=== PATIENT | female | born 1975 | race African-American/Black ===

== ENCOUNTER 2016-08-30 01:53 | Emergency (ER) | payer MEDICAID ==
[~2016-08-30] VITALS: Ht 160 cm; Wt 90.0 kg
[~2016-08-30 01:53] MED LIST: DIPH25CA83 PO; QUET400T PO
[2016-08-30] MEDS ORDERED: ACETAMINOPHEN 325MG TABLET PO ONE (03:15)
[2016-08-30 03:18] LABS: BASOPHILS % 0.9 % (0.0-2.0); DIFFERENTIAL COMMENT 0; EOSINOPHILS % 4.7 % (0.0-5.0); HEMATOCRIT. 28.7 % (36.0-48.0); HEMOGLOBIN. 8.9 g/dL (12.0-16.0); LYMPHOCYTES % 52.4 % (20.0-50.0); MEAN CORPUSCULAR HEMOGLOBIN 23.9 pg (28.0-32.0); MEAN CORPUSCULAR VOLUME 77.1 fL (81.0-99.0); MONOCYTES % 9.8 % (2.0-8.0); NEUTROPHILS % 32.2 % (40.0-76.0); PLATELET 198 x1000/uL (130-400); RED BLOOD CELL COUNT 3.73 mill/uL (4.2-5.4); RED CELL DISTRIBUTION WIDTH 15.9 % (11.6-14.6); WHITE BLOOD COUNT 5.7 x1000/uL (4.5-11.0)
[2016-08-30 03:22] LABS: CLARITY URINE CLEAR (CLEAR); COLOR URINE YELLOW (YELLOW); GLUCOSE URINE NEGATIVE (NEGATIVE); KETONES URINE NEGATIVE (NEGATIVE); LEUKOCYTE ESTERASE URINE NEGATIVE (NEGATIVE); NITRITE URINE NEGATIVE (NEGATIVE); OCCULT BLOOD URINE NEGATIVE (NEGATIVE); PROTEIN URINE NEGATIVE (NEGATIVE); SPECIFIC GRAVITY URINE 1.038 (1.005-1.030)
[2016-08-30 03:30] VITALS: BP 101/53
[2016-08-30 03:32] LABS: ALANINE AMINOTRANSFERASE 17 IU/L (13-61); ANION GAP 11; CALCIUM 8.3 mg/dL (8.5-10.1); CARBON DIOXIDE 29 mEq/L (21-32); CHLORIDE 106 mEq/L (98-107); INDEX HEMOLYSI 1 (1-3); INDEX ICTERIC 1 (1-4); INDEX LIPEMIC 1 (1-3); LIPASE 169 IU/L (73-393); UREA NITROGEN BLOOD 13 mg/dL (7-21); eGFR > 60 mL/min (>60)
== END 2016-08-30 06:01 | disposition home or self-care (01) ==
LOC: ER 01:56
DX: R07.89 Other chest pain (principal); F17.210 Nicotine dependence, cigarettes, uncomplicated; Z98.890 Other specified postprocedural states; Z88.6 Allergy status to analgesic agent; Z87.19 Personal history of other diseases of the digestive system
CPT/HCPCS: 36415; 80053; 81003; 81025; 83690; 85025; 93005; 99285

== ENCOUNTER 2016-09-22 02:32 | Emergency (ER) | payer MEDICAID ==
[~2016-09-22] VITALS: Ht 160 cm; Wt 91.0 kg
[2016-09-22 02:55] VITALS: BP 137/67
== END 2016-09-22 06:01 | disposition left against medical advice (07) ==
LOC: ER 02:33
DX: R10.9 Unspecified abdominal pain (principal); Z88.6 Allergy status to analgesic agent; Z98.890 Other specified postprocedural states

== ENCOUNTER 2016-10-25 01:46 | Emergency (ER) | payer MEDICAID ==
[~2016-10-25] VITALS: Ht 160 cm; Wt 90.0 kg
[2016-10-25 01:59] VITALS: BP 135/70
== END 2016-10-25 10:12 | disposition left against medical advice (07) ==
LOC: ER 01:48
DX: R10.9 Unspecified abdominal pain (principal); Z53.21 Procedure and treatment not carried out due to patient leaving prior to being seen by health care provider

== ENCOUNTER 2016-10-30 00:24 | Emergency (ER) | payer MEDICAID ==
[~2016-10-30] VITALS: Ht 170.2 cm; Wt 91.0 kg
[2016-10-30] MEDS ORDERED: ACETAMINOPHEN 325MG TABLET PO ONE (01:45)
[2016-10-30 02:58] VITALS: BP 112/62
== END 2016-10-30 03:45 | disposition home or self-care (01) ==
LOC: ER 00:24
DX: G89.29 Other chronic pain (principal); R07.89 Other chest pain; F12.10 Cannabis abuse, uncomplicated; Z59.0 Homelessness; Z88.6 Allergy status to analgesic agent; Z87.19 Personal history of other diseases of the digestive system
CPT/HCPCS: 36415; 71010; 83690; 93005; 99285

== ENCOUNTER 2016-11-03 02:23 | Emergency (ER) | payer MEDICAID ==
[~2016-11-03] VITALS: Ht 165.1 cm; Wt 90.0 kg
[2016-11-03 02:29] VITALS: BP 124/76
== END 2016-11-03 07:50 | disposition left against medical advice (07) ==
LOC: ER 02:23
DX: R10.9 Unspecified abdominal pain (principal); Z53.21 Procedure and treatment not carried out due to patient leaving prior to being seen by health care provider

== ENCOUNTER 2017-03-15 15:55 | Emergency (ER) | payer MEDICAID ==
[~2017-03-15] VITALS: Ht 165.1 cm; Wt 60.0 kg
[2017-03-15 16:04] VITALS: BP 127/80
== END 2017-03-15 19:15 | disposition left against medical advice (07) ==
LOC: ER 15:55
DX: R10.9 Unspecified abdominal pain (principal); Z53.21 Procedure and treatment not carried out due to patient leaving prior to being seen by health care provider

== ENCOUNTER 2017-07-08 16:49 | Emergency (ER) | payer MEDICAID ==
[~2017-07-08] VITALS: Ht 167.6 cm; Wt 75.0 kg
[2017-07-08 16:52] VITALS: BP 114/92
== END 2017-07-08 20:12 | disposition left against medical advice (07) ==
LOC: ER 16:55
DX: R10.9 Unspecified abdominal pain (principal); Z53.21 Procedure and treatment not carried out due to patient leaving prior to being seen by health care provider

== ENCOUNTER 2017-08-15 18:36 | Emergency (ER) | payer MEDICAID ==
[~2017-08-15] VITALS: Ht 170.2 cm; Wt 83.0 kg
[2017-08-15] MEDS ORDERED: ONDANSETRON HCL 4MG/2ML VIAL IV STA (22:41)
[2017-08-15] MEDS ORDERED: FAMOTIDINE 20MG/2ML VIAL IV STA (22:41)
[2017-08-15] MEDS ORDERED: MORPHINE SULFATE 4 MG/ML CPJ (NOT FOR IM USE) IV STA (22:41)
[2017-08-15] MEDS ORDERED: ASPIRIN 81MG TABLET PO ONE (22:45)
[2017-08-15 23:06] LABS: BASOPHILS % 0.8 % (0.0-2.0); EOSINOPHILS % 2.6 % (0.0-5.0); HEMATOCRIT. 28.1 % (36.0-48.0); HEMOGLOBIN. 8.8 g/dL (12.0-16.0); LYMPHOCYTES % 44.7 % (20.0-50.0); MEAN CORPUSCULAR HEMOGLOBIN 21.3 pg (28.0-32.0); MEAN CORPUSCULAR VOLUME 67.9 fL (81.0-99.0); MEAN PLATELET VOLUME 8.1 fl (7.4-10.4); MONOCYTES % 9.2 % (2.0-8.0); NEUTROPHILS % 42.7 % (40.0-76.0); PLATELET 279 x1000/uL (130-400); RED BLOOD CELL COUNT 4.14 mill/uL (4.2-5.4); RED CELL DISTRIBUTION WIDTH 20.4 % (11.6-14.6)
[2017-08-15 23:13] LABS: PROTHROMBIN TIME 10.6 sec (9.4-11.6)
[2017-08-15 23:15] LABS: HCG SCREEN NEGATIVE
[2017-08-15 23:16] LABS: CHLORIDE 107 mEq/L (98-107); ETHANOL BLOOD < 10 mg/dL
[2017-08-15 23:27] LABS: PLATELET ESTIMATE NORMAL
[2017-08-16 05:10] VITALS: BP 150/55
== END 2017-08-16 05:45 | disposition home or self-care (01) ==
LOC: ER 18:36 → CANBEDREQ 08-16 06:22
DX: R10.13 Epigastric pain (principal); R07.9 Chest pain, unspecified; D50.9 Iron deficiency anemia, unspecified; R11.0 Nausea; F17.200 Nicotine dependence, unspecified, uncomplicated; F12.10 Cannabis abuse, uncomplicated; Z88.5 Allergy status to narcotic agent
CPT/HCPCS: 36415; 71045; 74176; 76705; 80053; 83690; 83880; 84484; 84703; 85025; 85610; 93005; 96374; 96375; 99285; G0482; J2270; J2405; J3490; Z7610

== ENCOUNTER 2017-12-21 20:22 | Emergency (ER) | payer MEDICAID ==
[~2017-12-21] VITALS: Ht 167.6 cm; Wt 90.0 kg
[2017-12-21] MEDS ORDERED: ONDANSETRON HCL 4MG/2ML VIAL IV STA (22:38)
[2017-12-21] MEDS ORDERED: SODIUM CHLORIDE 0.9% 1,000 ML IV ONE (22:38)
[2017-12-21] MEDS ORDERED: MORPHINE SULFATE 4 MG/ML CPJ (NOT FOR IM USE) IV ONE (22:45)
[2017-12-21] MEDS ORDERED: FAMOTIDINE 20MG/2ML VIAL IV ONE (22:45)
[2017-12-21 23:04] LABS: HEMATOCRIT. 26.7 % (36.0-48.0); HEMOGLOBIN. 8.5 g/dL (12.0-16.0); MEAN CORPUSCULAR HEMOGLOBIN 22.2 pg (28.0-32.0); MEAN CORPUSCULAR VOLUME 69.6 fL (81.0-99.0); MEAN PLATELET VOLUME 8.6 fl (7.4-10.4); PLATELET 225 x1000/uL (130-400); RED BLOOD CELL COUNT 3.83 mill/uL (4.2-5.4); RED CELL DISTRIBUTION WIDTH 22.5 % (11.6-14.6)
[2017-12-21 23:10] LABS: CHLORIDE 107 mEq/L (98-107)
[2017-12-21 23:15] LABS: PLATELET ESTIMATE NORMAL
[2017-12-21 23:16] LABS: ETHANOL BLOOD < 10 mg/dL; HCG SCREEN NEGATIVE
[2017-12-22 01:05] LABS: CLARITY URINE CLEAR (CLEAR); COLOR URINE YELLOW (YELLOW); KETONES URINE NEGATIVE (NEGATIVE); LEUKOCYTE ESTERASE URINE NEGATIVE (NEGATIVE); NITRITE URINE NEGATIVE (NEGATIVE); OCCULT BLOOD URINE 1+ (NEGATIVE); PH URINE 5.5 (4.5-8.0); PROTEIN URINE NEGATIVE (NEGATIVE); SPECIFIC GRAVITY URINE 1.015 (1.005-1.030); UROBILINOGEN URINE 0.2 E.U./dL (0.2-1.0)
[2017-12-22 01:25] LABS: *AMPHETAMINES SCREEN URINE NEGATIVE (NEGATIVE); *BARBITURATES SCREEN URINE NEGATIVE (NEGATIVE); *COCAINE SCREEN URINE NEGATIVE (NEGATIVE)
[2017-12-22 01:26] LABS: *BENZODIAZEPINES SCREEN URINE NEGATIVE (NEGATIVE); CANNABINOID URINE SCREEN NEGATIVE (NEGATIVE); METHADONE URINE SCREEN NEGATIVE (NEGATIVE); OPIATES URINE SCREEN NEGATIVE (NEGATIVE)
[2017-12-22 01:28] LABS: PHENCYCLIDINE URINE SCREEN NEGATIVE (NEGATIVE)
[2017-12-22 03:48] VITALS: BP 118/80
== END 2017-12-22 03:55 | disposition home or self-care (01) ==
LOC: ER 20:55
DX: K29.70 Gastritis, unspecified, without bleeding (principal); F17.210 Nicotine dependence, cigarettes, uncomplicated; Z88.8 Allergy status to other drugs, medicaments and biological substances; Z79.899 Other long term (current) drug therapy
CPT/HCPCS: 36415; 71045; 80053; 80305; 81003; 83690; 84703; 85025; 93005; 96361; 96374; 96375; 99285; G0482; J2405; J3490; J7030; Z7610; J2270

== ENCOUNTER 2017-12-22 05:17 | Emergency (ER) | payer MEDICAID ==
[~2017-12-22] VITALS: Ht 160 cm; Wt 91.0 kg
[2017-12-22 13:23] LABS: HEMATOCRIT. 28.2 % (36.0-48.0); MEAN CORPUSCULAR HEMOGLOBIN 22.2 pg (28.0-32.0); MEAN CORPUSCULAR VOLUME 69.7 fL (81.0-99.0); MEAN PLATELET VOLUME 8.5 fl (7.4-10.4); PLATELET 238 x1000/uL (130-400); RED BLOOD CELL COUNT 4.05 mill/uL (4.2-5.4); RED CELL DISTRIBUTION WIDTH 22.2 % (11.6-14.6)
[2017-12-22 13:28] LABS: CHLORIDE 107 mEq/L (98-107)
[2017-12-22 13:43] LABS: D-DIMER 0.99 mg/L FEU (<0.50); PROTHROMBIN TIME 10.1 sec (9.4-11.6)
[2017-12-22 13:54] LABS: PLATELET ESTIMATE NORMAL
[2017-12-22 14:47] LABS: HCG SCREEN NEGATIVE
[2017-12-22] MEDS ORDERED: IOHEXOL-350 100 ML BOTTLE ONE (16:42)
[2017-12-22 18:16] VITALS: BP 130/76
== END 2017-12-22 18:18 | disposition home or self-care (01) ==
LOC: ER 05:44
DX: R07.9 Chest pain, unspecified (principal); I26.99 Other pulmonary embolism without acute cor pulmonale; R06.00 Dyspnea, unspecified; K85.90 Acute pancreatitis without necrosis or infection, unspecified; F14.10 Cocaine abuse, uncomplicated; F17.200 Nicotine dependence, unspecified, uncomplicated; Z88.6 Allergy status to analgesic agent
CPT/HCPCS: 36415; 71045; 71275; 80053; 83880; 84484; 84703; 85025; 85379; 85610; 93005; 99285; Q9967; Z7610

== ENCOUNTER 2017-12-22 18:38 | Emergency (ER) | payer MEDICAID ==
[~2017-12-22] VITALS: Ht 160 cm; Wt 100.0 kg
[2017-12-23] MEDS ORDERED: ACETAMINOPHEN 325MG TABLET PO ONE (03:30)
[2017-12-23] MEDS: ACETAMINOPHEN 325MG TABLET PO SCH ×2 (03:41→03:58)
[2017-12-23 04:20] VITALS: BP 126/72
== END 2017-12-23 04:23 | disposition home or self-care (01) ==
LOC: ER 21:07
DX: R07.89 Other chest pain (principal); G89.29 Other chronic pain; Z88.6 Allergy status to analgesic agent
CPT/HCPCS: 99281

== ENCOUNTER 2017-12-23 04:57 | Emergency (ER) | payer MEDICAID ==
[~2017-12-23] VITALS: Ht 160 cm; Wt 90.0 kg
[2017-12-23 08:50] LABS: CHLORIDE 105 mEq/L (98-107)
[2017-12-23 08:52] LABS: PROTHROMBIN TIME 10.4 sec (9.4-11.6)
[2017-12-23 08:57] LABS: HEMATOCRIT. 28.7 % (36.0-48.0); MEAN CORPUSCULAR HEMOGLOBIN 21.8 pg (28.0-32.0); MEAN CORPUSCULAR VOLUME 69.3 fL (81.0-99.0); MEAN PLATELET VOLUME 8.7 fl (7.4-10.4); PLATELET 231 x1000/uL (130-400); RED BLOOD CELL COUNT 4.14 mill/uL (4.2-5.4); RED CELL DISTRIBUTION WIDTH 22.1 % (11.6-14.6)
[2017-12-23 09:14] LABS: CLARITY URINE CLOUDY (CLEAR); COLOR URINE YELLOW (YELLOW); KETONES URINE NEGATIVE (NEGATIVE); LEUKOCYTE ESTERASE URINE NEGATIVE (NEGATIVE); NITRITE URINE NEGATIVE (NEGATIVE); OCCULT BLOOD URINE 1+ (NEGATIVE); PROTEIN URINE NEGATIVE (NEGATIVE); SPECIFIC GRAVITY URINE 1.023 (1.005-1.030)
[2017-12-23 09:14] LABS: HCG SCREEN NEGATIVE
[2017-12-23 09:40] LABS: PLATELET ESTIMATE NORMAL
[2017-12-23 11:35] VITALS: BP 118/73
== END 2017-12-23 12:21 | disposition home or self-care (01) ==
LOC: ER 05:30
DX: R10.9 Unspecified abdominal pain (principal); F17.200 Nicotine dependence, unspecified, uncomplicated; Z97.5 Presence of (intrauterine) contraceptive device
CPT/HCPCS: 36415; 71045; 74176; 80053; 81003; 83690; 83880; 84484; 84703; 85025; 85610; 93005; 99285; Z7610

== ENCOUNTER 2018-02-14 01:17 | Emergency (ER) | payer MEDICAID ==
[~2018-02-14] VITALS: Ht 165.1 cm; Wt 73.0 kg
[2018-02-14] MEDS ORDERED: MORPHINE SULFATE 4 MG/ML CPJ (NOT FOR IM USE) IV ONE (03:15)
[2018-02-14 03:53] LABS: BASOPHILS % 0.7 % (0.0-2.0); EOSINOPHILS % 3.2 % (0.0-5.0); HEMATOCRIT. 33.4 % (36.0-48.0); HEMOGLOBIN. 10.5 g/dL (12.0-16.0); LYMPHOCYTES % 53.8 % (20.0-50.0); MEAN CORPUSCULAR HEMOGLOBIN 23.2 pg (28.0-32.0); MEAN CORPUSCULAR VOLUME 73.7 fL (81.0-99.0); MEAN PLATELET VOLUME 8.8 fl (7.4-10.4); MONOCYTES % 8.9 % (2.0-8.0); NEUTROPHILS % 33.4 % (40.0-76.0); PLATELET 225 x1000/uL (130-400); RED BLOOD CELL COUNT 4.53 mill/uL (4.2-5.4); RED CELL DISTRIBUTION WIDTH 22.1 % (11.6-14.6)
[2018-02-14 04:00] LABS: CHLORIDE 106 mEq/L (98-107)
[2018-02-14 04:02] LABS: PROTHROMBIN TIME 10.1 sec (9.1-11.1)
[2018-02-14 04:20] LABS: PLATELET ESTIMATE NORMAL
[2018-02-14] MEDS ORDERED: ONDANSETRON HCL 4MG/2ML INJ IV ONE (05:00)
[2018-02-14] MEDS ORDERED: ACETAMINOPHEN 325MG TABLET PO ONE (07:30)
[2018-02-14 11:46] VITALS: BP 120/83
== END 2018-02-14 11:49 | disposition home or self-care (01) ==
LOC: ER 01:17
DX: R07.9 Chest pain, unspecified (principal); E11.9 Type 2 diabetes mellitus without complications; I10 Essential (primary) hypertension; F17.200 Nicotine dependence, unspecified, uncomplicated; Z88.8 Allergy status to other drugs, medicaments and biological substances; Z79.899 Other long term (current) drug therapy
CPT/HCPCS: 36415; 71045; 80053; 81025; 83880; 84484; 85025; 85610; 93005; 96374; 96375; 99285; J2270; J2405; Z7610

== ENCOUNTER 2018-02-21 00:24 | Emergency (ER) | payer MEDICAID ==
[~2018-02-21] VITALS: Ht 167.6 cm; Wt 71.0 kg
[2018-02-21] MEDS ORDERED: IBUPROFEN 600MG TABLET PO STA (04:21)
[2018-02-21 05:18] LABS: BASOPHILS % 0.9 % (0.0-2.0); EOSINOPHILS % 3.1 % (0.0-5.0); HEMATOCRIT. 32.6 % (36.0-48.0); HEMOGLOBIN. 10.3 g/dL (12.0-16.0); LYMPHOCYTES % 42.2 % (20.0-50.0); MEAN CORPUSCULAR HEMOGLOBIN 23.3 pg (28.0-32.0); MEAN CORPUSCULAR VOLUME 73.6 fL (81.0-99.0); MEAN PLATELET VOLUME 8.5 fl (7.4-10.4); NEUTROPHILS % 45.8 % (40.0-76.0); PLATELET 204 x1000/uL (130-400); RED BLOOD CELL COUNT 4.43 mill/uL (4.2-5.4); RED CELL DISTRIBUTION WIDTH 22.1 % (11.6-14.6)
[2018-02-21 05:22] LABS: PLATELET ESTIMATE NORMAL
[2018-02-21 05:26] LABS: CHLORIDE 106 mEq/L (98-107)
[2018-02-21] MEDS ORDERED: ACETAMINOPHEN 325MG TABLET PO ONE (06:30)
[2018-02-21 08:25] VITALS: BP 114/66
== END 2018-02-21 08:29 | disposition home or self-care (01) ==
LOC: ER 00:33
DX: R07.9 Chest pain, unspecified (principal); F17.210 Nicotine dependence, cigarettes, uncomplicated; E11.9 Type 2 diabetes mellitus without complications; I10 Essential (primary) hypertension; I25.10 Atherosclerotic heart disease of native coronary artery without angina pectoris; F31.9 Bipolar disorder, unspecified; Z98.890 Other specified postprocedural states; Z88.5 Allergy status to narcotic agent; Z79.899 Other long term (current) drug therapy
CPT/HCPCS: 36415; 71045; 80053; 81025; 84484; 85025; 93005; 99285; Z7610

== ENCOUNTER 2018-05-16 18:31 | Emergency (ER) | payer MEDICAID ==
[~2018-05-16] VITALS: Ht 167.6 cm; Wt 62.0 kg
[2018-05-16] MEDS ORDERED: FAMOTIDINE 20MG/2ML VIAL IV STA (19:39)
[2018-05-16] MEDS ORDERED: KETOROLAC 30MG/ML VIAL IV STA (19:39)
[2018-05-16] MEDS ORDERED: ONDANSETRON HCL 4MG/2ML INJ IV STA (19:39)
[2018-05-16 21:35] LABS: BASOPHILS % 0.4 % (0.0-2.0); CHLORIDE 103 mEq/L (98-107); EOSINOPHILS % 1.8 % (0.0-5.0); HEMOGLOBIN. 11.7 g/dL (12.0-16.0); LYMPHOCYTES % 34.9 % (20.0-50.0); MEAN CORPUSCULAR HEMOGLOBIN 24.1 pg (28.0-32.0); MEAN CORPUSCULAR VOLUME 76.4 fL (81.0-99.0); MEAN PLATELET VOLUME 8.5 fl (7.4-10.4); MONOCYTES % 12.6 % (2.0-8.0); NEUTROPHILS % 50.3 % (40.0-76.0); PLATELET 192 x1000/uL (130-400); RED BLOOD CELL COUNT 4.84 mill/uL (4.2-5.4); RED CELL DISTRIBUTION WIDTH 19.3 % (11.6-14.6)
[2018-05-16 21:54] LABS: CLARITY URINE CLOUDY (CLEAR); COLOR URINE YELLOW (YELLOW); KETONES URINE TRACE (NEGATIVE); LEUKOCYTE ESTERASE URINE 1+ (NEGATIVE); NITRITE URINE NEGATIVE (NEGATIVE); OCCULT BLOOD URINE NEGATIVE (NEGATIVE); PROTEIN URINE TRACE (NEGATIVE); SPECIFIC GRAVITY URINE 1.036 (1.005-1.030)
[2018-05-17 00:26] VITALS: BP 109/58
== END 2018-05-17 01:04 | disposition home or self-care (01) ==
LOC: ER 18:31
DX: R10.9 Unspecified abdominal pain (principal); R07.9 Chest pain, unspecified; F10.20 Alcohol dependence, uncomplicated; F31.9 Bipolar disorder, unspecified; I10 Essential (primary) hypertension; E11.9 Type 2 diabetes mellitus without complications; I25.10 Atherosclerotic heart disease of native coronary artery without angina pectoris; Z88.5 Allergy status to narcotic agent
CPT/HCPCS: 36415; 71045; 80053; 81003; 81025; 83690; 84484; 85025; 93005; 96374; 96375; 99284; J1885; J2405; J3490

== ENCOUNTER 2018-05-17 06:48 | Emergency (ER) | payer MEDICAID ==
[~2018-05-17] VITALS: Ht 160 cm; Wt 64.0 kg
[2018-05-17] MEDS ORDERED: FAMOTIDINE 20MG/2ML VIAL IV STA (07:26)
[2018-05-17] MEDS ORDERED: VISCOUS LIDOCAINE 2% 15 ML UDC PO STA (07:26)
[2018-05-17] MEDS ORDERED: MAGNESIUM/ALUMINUM HYDROXIDE/SIMETHICONE 30ML UDC PO STA (07:26)
[2018-05-17] MEDS ORDERED: ONDANSETRON HCL 4MG/2ML INJ IV STA (07:26)
[2018-05-17 08:33] LABS: CHLORIDE 104 mEq/L (98-107)
[2018-05-17 08:36] LABS: PROTHROMBIN TIME 10.4 sec (9.1-11.1)
[2018-05-17 08:44] LABS: BASOPHILS % 0.5 % (0.0-2.0); EOSINOPHILS % 1.8 % (0.0-5.0); HEMATOCRIT. 36.3 % (36.0-48.0); HEMOGLOBIN. 11.6 g/dL (12.0-16.0); LYMPHOCYTES % 37.8 % (20.0-50.0); MEAN CORPUSCULAR HEMOGLOBIN 24.3 pg (28.0-32.0); MEAN CORPUSCULAR VOLUME 76.2 fL (81.0-99.0); MEAN PLATELET VOLUME 8.5 fl (7.4-10.4); MONOCYTES % 12.2 % (2.0-8.0); NEUTROPHILS % 47.7 % (40.0-76.0); PLATELET 192 x1000/uL (130-400); RED BLOOD CELL COUNT 4.77 mill/uL (4.2-5.4); RED CELL DISTRIBUTION WIDTH 19.1 % (11.6-14.6)
[2018-05-17 09:11] LABS: CLARITY URINE CLOUDY (CLEAR); COLOR URINE AMBER (YELLOW); KETONES URINE TRACE (NEGATIVE); LEUKOCYTE ESTERASE URINE 2+ (NEGATIVE); NITRITE URINE NEGATIVE (NEGATIVE); OCCULT BLOOD URINE NEGATIVE (NEGATIVE); PH URINE 5.5 (4.5-8.0); PROTEIN URINE TRACE (NEGATIVE); UROBILINOGEN URINE 0.2 E.U./dL (0.2-1.0)
[2018-05-17 10:27] VITALS: BP 135/75
== END 2018-05-17 10:53 | disposition home or self-care (01) ==
LOC: ER 07:48
DX: N39.0 Urinary tract infection, site not specified (principal); F31.9 Bipolar disorder, unspecified; I10 Essential (primary) hypertension; F17.200 Nicotine dependence, unspecified, uncomplicated; Z88.5 Allergy status to narcotic agent
CPT/HCPCS: 36415; 80053; 81003; 81025; 83690; 83880; 84484; 85025; 85610; 87086; 93005; 96374; 96375; 99284; J2405; J3490

== ENCOUNTER 2018-08-18 02:55 | Emergency (ER) | payer MEDICAID ==
[~2018-08-18] VITALS: Ht 160 cm; Wt 91.0 kg
[2018-08-18 05:39] LABS: BASOPHILS % 0.9 % (0.0-2.0); EOSINOPHILS % 4.9 % (0.0-5.0); HEMATOCRIT. 31.4 % (36.0-48.0); LYMPHOCYTES % 61.5 % (20.0-50.0); MEAN CORPUSCULAR HEMOGLOBIN 25.9 pg (28.0-32.0); MEAN CORPUSCULAR VOLUME 81.2 fL (81.0-99.0); MEAN PLATELET VOLUME 8.2 fl (7.4-10.4); MONOCYTES % 9.5 % (2.0-8.0); NEUTROPHILS % 23.2 % (40.0-76.0); PLATELET 178 x1000/uL (130-400); RED BLOOD CELL COUNT 3.87 mill/uL (4.2-5.4); RED CELL DISTRIBUTION WIDTH 15.4 % (11.6-14.6)
[2018-08-18 05:45] LABS: CHLORIDE 112 mEq/L (98-107)
[2018-08-18 05:53] LABS: ETHANOL BLOOD < 10 mg/dL; HCG SCREEN NEGATIVE
[2018-08-18 06:14] LABS: *AMPHETAMINES SCREEN URINE NEGATIVE (NEGATIVE); *BARBITURATES SCREEN URINE NEGATIVE (NEGATIVE)
[2018-08-18 06:15] LABS: *BENZODIAZEPINES SCREEN URINE NEGATIVE (NEGATIVE); CANNABINOID URINE SCREEN NEGATIVE (NEGATIVE); METHADONE URINE SCREEN NEGATIVE (NEGATIVE); OPIATES URINE SCREEN NEGATIVE (NEGATIVE); PHENCYCLIDINE URINE SCREEN NEGATIVE (NEGATIVE)
[2018-08-18 06:29] LABS: *COCAINE SCREEN URINE PRESUMTIVE POSITIVE (NEGATIVE)
[2018-08-18] MEDS ORDERED: KETOROLAC 60MG/2ML VIAL IM STA (07:06)
[2018-08-18 09:25] VITALS: BP 117/71
== END 2018-08-18 09:41 | disposition home or self-care (01) ==
LOC: ER 02:55
DX: M94.0 Chondrocostal junction syndrome [Tietze] (principal); R07.9 Chest pain, unspecified; F14.10 Cocaine abuse, uncomplicated; Z88.5 Allergy status to narcotic agent
CPT/HCPCS: 36415; 71045; 80053; 80305; 80320; 83880; 84484; 84703; 85025; 96372; 99284; J1885; G0480

== ENCOUNTER 2018-09-30 07:51 | Emergency (ER) | payer MEDICAID ==
[~2018-09-30] VITALS: Ht 165.1 cm; Wt 86.6 kg
[2018-09-30 09:31] LABS: CLARITY URINE CLEAR (CLEAR); COLOR URINE YELLOW (YELLOW); KETONES URINE TRACE (NEGATIVE); LEUKOCYTE ESTERASE URINE NEGATIVE (NEGATIVE); NITRITE URINE NEGATIVE (NEGATIVE); OCCULT BLOOD URINE NEGATIVE (NEGATIVE); PH URINE 5.5 (4.5-8.0); PROTEIN URINE NEGATIVE (NEGATIVE); SPECIFIC GRAVITY URINE 1.039 (1.005-1.030)
[2018-09-30] MEDS ORDERED: ACETAMINOPHEN 325MG TABLET PO STA (10:01)
[2018-09-30] MEDS ORDERED: ONDANSETRON HCL 4MG/2ML INJ IV STA (10:01)
[2018-09-30] MEDS ORDERED: SODIUM CHLORIDE 0.9% 1,000 ML IV ONE (10:01)
[2018-09-30 11:08] LABS: *AMPHETAMINES SCREEN URINE NEGATIVE (NEGATIVE); *BARBITURATES SCREEN URINE NEGATIVE (NEGATIVE); *BENZODIAZEPINES SCREEN URINE NEGATIVE (NEGATIVE)
[2018-09-30 11:09] LABS: CANNABINOID URINE SCREEN NEGATIVE (NEGATIVE); METHADONE URINE SCREEN NEGATIVE (NEGATIVE); OPIATES URINE SCREEN NEGATIVE (NEGATIVE); PHENCYCLIDINE URINE SCREEN NEGATIVE (NEGATIVE)
[2018-09-30 11:14] LABS: *COCAINE SCREEN URINE PRESUMTIVE POSITIVE (NEGATIVE)
[2018-09-30 11:40] LABS: BASOPHILS % 0.6 % (0.0-2.0); EOSINOPHILS % 4.6 % (0.0-5.0); HEMATOCRIT. 34.6 % (36.0-48.0); HEMOGLOBIN. 11.1 g/dL (12.0-16.0); LYMPHOCYTES % 47.8 % (20.0-50.0); MEAN CORPUSCULAR VOLUME 81.2 fL (81.0-99.0); MEAN PLATELET VOLUME 8.3 fl (7.4-10.4); MONOCYTES % 11.3 % (2.0-8.0); NEUTROPHILS % 35.7 % (40.0-76.0); PLATELET 180 x1000/uL (130-400); RED BLOOD CELL COUNT 4.26 mill/uL (4.2-5.4); RED CELL DISTRIBUTION WIDTH 14.9 % (11.6-14.6)
[2018-09-30 11:48] LABS: CHLORIDE 111 mEq/L (98-107)
[2018-09-30 11:55] LABS: ETHANOL BLOOD < 10 mg/dL
[2018-09-30] MEDS ORDERED: ACETAMINOPHEN 325MG TABLET ONE (12:09)
[2018-09-30 14:01] VITALS: BP 121/70
== END 2018-09-30 14:19 | disposition home or self-care (01) ==
LOC: ER 07:51
DX: M94.0 Chondrocostal junction syndrome [Tietze] (principal); F14.10 Cocaine abuse, uncomplicated; R10.30 Lower abdominal pain, unspecified; Z98.890 Other specified postprocedural states
CPT/HCPCS: 36415; 80053; 80305; 80320; 81003; 83690; 84484; 85025; 93005; 96361; 96374; 99284; J2405; J7030; G0480

== ENCOUNTER 2018-10-12 23:07 | Emergency (ER) | payer MEDICAID ==
[~2018-10-12] VITALS: Ht 160 cm; Wt 91.0 kg
[2018-10-12 23:23] VITALS: BP 144/102
== END 2018-10-13 01:45 | disposition left against medical advice (07) ==
LOC: ER 23:07
DX: R07.9 Chest pain, unspecified (principal); F14.10 Cocaine abuse, uncomplicated; F17.200 Nicotine dependence, unspecified, uncomplicated; Z98.890 Other specified postprocedural states; Z88.5 Allergy status to narcotic agent; Z79.899 Other long term (current) drug therapy
CPT/HCPCS: 93005; 99281

== ENCOUNTER 2018-10-19 22:10 | Emergency (ER) | payer MEDICAID ==
[~2018-10-19] VITALS: Ht 160 cm; Wt 95.0 kg
[2018-10-20] MEDS ORDERED: ONDANSETRON HCL 4MG/2ML INJ IV STA (02:43)
[2018-10-20] MEDS ORDERED: SODIUM CHLORIDE 0.9% 1,000 ML IV ONE (02:43)
[2018-10-20] MEDS ORDERED: KETOROLAC 15MG/ML VIAL IV ONE (02:45)
[2018-10-20 03:10] LABS: CHLORIDE 107 mEq/L (98-107)
[2018-10-20 03:11] LABS: BASOPHILS % 0.5 % (0.0-2.0); EOSINOPHILS % 4.8 % (0.0-5.0); HEMATOCRIT. 36.2 % (36.0-48.0); HEMOGLOBIN. 11.4 g/dL (12.0-16.0); LYMPHOCYTES % 43.7 % (20.0-50.0); MEAN CORPUSCULAR HEMOGLOBIN 25.1 pg (28.0-32.0); MEAN CORPUSCULAR VOLUME 79.5 fL (81.0-99.0); MEAN PLATELET VOLUME 8.5 fl (7.4-10.4); MONOCYTES % 9.3 % (2.0-8.0); NEUTROPHILS % 41.7 % (40.0-76.0); PLATELET 221 x1000/uL (130-400); RED BLOOD CELL COUNT 4.55 mill/uL (4.2-5.4); RED CELL DISTRIBUTION WIDTH 15.1 % (11.6-14.6)
[2018-10-20 03:12] LABS: PROTHROMBIN TIME 10.1 sec (9.6-11.0)
[2018-10-20 03:21] LABS: HCG SCREEN NEGATIVE
[2018-10-20 03:35] LABS: CLARITY URINE CLEAR (CLEAR); COLOR URINE YELLOW (YELLOW); KETONES URINE TRACE (NEGATIVE); LEUKOCYTE ESTERASE URINE TRACE (NEGATIVE); NITRITE URINE NEGATIVE (NEGATIVE); OCCULT BLOOD URINE 2+ (NEGATIVE); PROTEIN URINE TRACE (NEGATIVE); SPECIFIC GRAVITY URINE 1.039 (1.005-1.030)
[2018-10-20] MEDS ORDERED: FAMOTIDINE 20MG TABLET PO NR (05:15)
[2018-10-20] MEDS ORDERED: POTASSIUM CHLORIDE 20MEQ TABLET SR PO NR (05:15)
[2018-10-20 06:32] VITALS: BP 122/77
== END 2018-10-20 06:38 | disposition home or self-care (01) ==
LOC: ER 22:10
DX: N39.0 Urinary tract infection, site not specified (principal); F10.10 Alcohol abuse, uncomplicated; R10.13 Epigastric pain; I10 Essential (primary) hypertension; F17.200 Nicotine dependence, unspecified, uncomplicated; F14.10 Cocaine abuse, uncomplicated; Z88.5 Allergy status to narcotic agent; Z79.899 Other long term (current) drug therapy
CPT/HCPCS: 36415; 74176; 80053; 81003; 81025; 83690; 84703; 85025; 85610; 96374; 96375; 99284; J1885; J2405; J7030; Z7610

== ENCOUNTER 2018-10-23 21:48 | Emergency (ER) | payer MEDICAID ==
[~2018-10-23] VITALS: Ht 170.2 cm; Wt 92.0 kg
[2018-10-24] MEDS: ASPIRIN 81MG TABLET PO ONE (02:00)
[2018-10-24 04:45] LABS: BASOPHILS % 0.7 % (0.0-2.0); EOSINOPHILS % 5.4 % (0.0-5.0); HEMATOCRIT. 33.3 % (36.0-48.0); HEMOGLOBIN. 10.8 g/dL (12.0-16.0); LYMPHOCYTES % 50.6 % (20.0-50.0); MEAN CORPUSCULAR HEMOGLOBIN 26.1 pg (28.0-32.0); MEAN CORPUSCULAR VOLUME 80.4 fL (81.0-99.0); MEAN PLATELET VOLUME 8.7 fl (7.4-10.4); MONOCYTES % 7.4 % (2.0-8.0); NEUTROPHILS % 35.9 % (40.0-76.0); RED BLOOD CELL COUNT 4.14 mill/uL (4.2-5.4); RED CELL DISTRIBUTION WIDTH 14.8 % (11.6-14.6)
[2018-10-24 04:46] LABS: PLATELET 166 x1000/uL (130-400)
[2018-10-24 05:05] LABS: CHLORIDE 107 mEq/L (98-107)
[2018-10-24 06:58] VITALS: BP 133/79
== END 2018-10-24 07:00 | disposition home or self-care (01) ==
LOC: ER 21:48
DX: G89.29 Other chronic pain (principal); R07.89 Other chest pain; R06.02 Shortness of breath; F31.9 Bipolar disorder, unspecified; I10 Essential (primary) hypertension; F17.200 Nicotine dependence, unspecified, uncomplicated; Z88.5 Allergy status to narcotic agent; Z79.899 Other long term (current) drug therapy
CPT/HCPCS: 36415; 71045; 80053; 83880; 84484; 85025; 93005; 99284; Z7610

== ENCOUNTER 2018-10-25 01:45 | Emergency (ER) | payer MEDICAID ==
[~2018-10-25] VITALS: Ht 160 cm; Wt 91.0 kg
[2018-10-25] MEDS ORDERED: ACETAMINOPHEN 325MG TABLET PO ONE (04:30)
[2018-10-25 04:38] LABS: BASOPHILS % 1.2 % (0.0-2.0); HEMATOCRIT. 31.4 % (36.0-48.0); HEMOGLOBIN. 10.3 g/dL (12.0-16.0); LYMPHOCYTES % 55.1 % (20.0-50.0); MEAN CORPUSCULAR HEMOGLOBIN 25.9 pg (28.0-32.0); MEAN CORPUSCULAR VOLUME 79.4 fL (81.0-99.0); MEAN PLATELET VOLUME 8.3 fl (7.4-10.4); MONOCYTES % 9.7 % (2.0-8.0); PLATELET 203 x1000/uL (130-400); RED BLOOD CELL COUNT 3.96 mill/uL (4.2-5.4); RED CELL DISTRIBUTION WIDTH 14.8 % (11.6-14.6)
[2018-10-25 04:46] LABS: CHLORIDE 107 mEq/L (98-107)
[2018-10-25] MEDS ORDERED: POTASSIUM CHLORIDE 20MEQ/PACKET PO ONE (06:00)
[2018-10-25 06:32] VITALS: BP 120/64
== END 2018-10-25 06:43 | disposition home or self-care (01) ==
LOC: ER 03:22
DX: G89.29 Other chronic pain (principal); R07.89 Other chest pain; R10.9 Unspecified abdominal pain; F17.200 Nicotine dependence, unspecified, uncomplicated; F14.10 Cocaine abuse, uncomplicated; Z98.890 Other specified postprocedural states; Z88.5 Allergy status to narcotic agent; Z79.899 Other long term (current) drug therapy
CPT/HCPCS: 36415; 93005; 99284

== ENCOUNTER 2018-11-06 22:44 | Emergency (ER) | payer MEDICAID ==
[~2018-11-06] VITALS: Ht 157.5 cm; Wt 91.0 kg
[2018-11-07] MEDS ORDERED: MAGNESIUM/ALUMINUM HYDROXIDE/SIMETHICONE 30ML UDC PO STA (02:03)
[2018-11-07 03:09] LABS: BASOPHILS % 0.9 % (0.0-2.0); CHLORIDE 110 mEq/L (98-107); EOSINOPHILS % 5.1 % (0.0-5.0); HEMATOCRIT. 34.9 % (36.0-48.0); HEMOGLOBIN. 11.3 g/dL (12.0-16.0); MEAN CORPUSCULAR HEMOGLOBIN 25.4 pg (28.0-32.0); MEAN CORPUSCULAR VOLUME 78.7 fL (81.0-99.0); MEAN PLATELET VOLUME 8.5 fl (7.4-10.4); MONOCYTES % 8.3 % (2.0-8.0); NEUTROPHILS % 40.7 % (40.0-76.0); PLATELET 203 x1000/uL (130-400); RED BLOOD CELL COUNT 4.43 mill/uL (4.2-5.4); RED CELL DISTRIBUTION WIDTH 15.4 % (11.6-14.6)
[2018-11-07 03:13] LABS: HCG SCREEN NEGATIVE
[2018-11-07 05:05] VITALS: BP 101/55
[2018-11-07] MEDS ORDERED: ONDANSETRON 4MG ODT PO ONE (05:30)
== END 2018-11-07 05:36 | disposition home or self-care (01) ==
LOC: ER 22:44
DX: R10.33 Periumbilical pain (principal); R11.2 Nausea with vomiting, unspecified; Z87.19 Personal history of other diseases of the digestive system; Z98.890 Other specified postprocedural states; Z88.5 Allergy status to narcotic agent; Z79.899 Other long term (current) drug therapy
CPT/HCPCS: 36415; 71045; 80053; 81025; 83690; 84484; 84703; 85025; 93005; 99284; Q0162

== ENCOUNTER 2018-11-07 15:11 | Emergency (ER) | payer MEDICAID ==
[~2018-11-07] VITALS: Ht 170.2 cm; Wt 100.0 kg
[2018-11-07 15:14] VITALS: BP 122/84
== END 2018-11-07 18:22 | disposition left against medical advice (07) ==
LOC: ER 15:11
DX: R10.13 Epigastric pain (principal); F14.10 Cocaine abuse, uncomplicated; R11.2 Nausea with vomiting, unspecified; Z98.890 Other specified postprocedural states; Z87.19 Personal history of other diseases of the digestive system; Z88.5 Allergy status to narcotic agent
CPT/HCPCS: 99283

== ENCOUNTER 2018-11-10 16:58 | Emergency (ER) | payer MEDICAID ==
[~2018-11-10] VITALS: Ht 160 cm; Wt 96.0 kg
[2018-11-10 17:01] VITALS: BP 102/67
== END 2018-11-10 17:45 | disposition left against medical advice (07) ==
LOC: ER 17:00
DX: R07.89 Other chest pain (principal); R10.84 Generalized abdominal pain; F14.10 Cocaine abuse, uncomplicated; Z88.5 Allergy status to narcotic agent; Z98.890 Other specified postprocedural states; Z87.19 Personal history of other diseases of the digestive system
CPT/HCPCS: 99283

== ENCOUNTER 2018-11-11 00:27 | Emergency (ER) | payer MEDICAID ==
[~2018-11-11] VITALS: Ht 160 cm; Wt 91.0 kg
[2018-11-11] MEDS ORDERED: MAGNESIUM/ALUMINUM HYDROXIDE/SIMETHICONE 30ML UDC PO STA (02:03)
[2018-11-11] MEDS ORDERED: VISCOUS LIDOCAINE 2% 15 ML UDC PO STA (02:03)
[2018-11-11 03:01] LABS: BASOPHILS % 1.2 % (0.0-2.0); EOSINOPHILS % 5.9 % (0.0-5.0); HEMOGLOBIN. 11.4 g/dL (12.0-16.0); LYMPHOCYTES % 48.5 % (20.0-50.0); MEAN CORPUSCULAR HEMOGLOBIN 25.7 pg (28.0-32.0); MEAN CORPUSCULAR VOLUME 78.7 fL (81.0-99.0); MEAN PLATELET VOLUME 8.2 fl (7.4-10.4); MONOCYTES % 10.1 % (2.0-8.0); NEUTROPHILS % 34.3 % (40.0-76.0); PLATELET 192 x1000/uL (130-400); RED BLOOD CELL COUNT 4.45 mill/uL (4.2-5.4); RED CELL DISTRIBUTION WIDTH 15.4 % (11.6-14.6)
[2018-11-11 03:05] LABS: CHLORIDE 107 mEq/L (98-107)
[2018-11-11 03:38] LABS: CLARITY URINE CLOUDY (CLEAR); COLOR URINE DARK YELLOW (YELLOW); KETONES URINE NEGATIVE (NEGATIVE); LEUKOCYTE ESTERASE URINE 1+ (NEGATIVE); NITRITE URINE NEGATIVE (NEGATIVE); OCCULT BLOOD URINE NEGATIVE (NEGATIVE); PH URINE 6.5 (4.5-8.0); PROTEIN URINE 1+ (NEGATIVE); SPECIFIC GRAVITY URINE 1.041 (1.005-1.030)
[2018-11-11 05:23] VITALS: BP 121/69
== END 2018-11-11 05:27 | disposition home or self-care (01) ==
LOC: ER 00:27
DX: N39.0 Urinary tract infection, site not specified (principal); F14.10 Cocaine abuse, uncomplicated; F17.210 Nicotine dependence, cigarettes, uncomplicated; Z98.890 Other specified postprocedural states; Z88.5 Allergy status to narcotic agent; Z79.899 Other long term (current) drug therapy; Z87.19 Personal history of other diseases of the digestive system
CPT/HCPCS: 36415; 80053; 81003; 83690; 84484; 85025; 93005; 99284; 99406; Z7610

== ENCOUNTER 2018-11-22 15:02 | Emergency (ER) | payer MEDICAID ==
[~2018-11-22] VITALS: Ht 157.5 cm; Wt 90.0 kg
[2018-11-22] MEDS ORDERED: SODIUM CHLORIDE 0.9% 1,000 ML IV ONE (15:19)
[2018-11-22 16:03] LABS: CLARITY URINE CLEAR (CLEAR); COLOR URINE YELLOW (YELLOW); KETONES URINE TRACE (NEGATIVE); LEUKOCYTE ESTERASE URINE NEGATIVE (NEGATIVE); NITRITE URINE NEGATIVE (NEGATIVE); OCCULT BLOOD URINE NEGATIVE (NEGATIVE); PH URINE 5.5 (4.5-8.0); PROTEIN URINE NEGATIVE (NEGATIVE); SPECIFIC GRAVITY URINE 1.027 (1.005-1.030)
[2018-11-22 16:22] LABS: *AMPHETAMINES SCREEN URINE NEGATIVE (NEGATIVE); *BARBITURATES SCREEN URINE NEGATIVE (NEGATIVE); *BENZODIAZEPINES SCREEN URINE NEGATIVE (NEGATIVE); METHADONE URINE SCREEN NEGATIVE (NEGATIVE); OPIATES URINE SCREEN NEGATIVE (NEGATIVE)
[2018-11-22 16:23] LABS: CANNABINOID URINE SCREEN NEGATIVE (NEGATIVE); PHENCYCLIDINE URINE SCREEN NEGATIVE (NEGATIVE)
[2018-11-22 16:24] LABS: *COCAINE SCREEN URINE PRESUMTIVE POSITIVE (NEGATIVE)
[2018-11-22 16:30] LABS: BASOPHILS % 0.8 % (0.0-2.0); HEMATOCRIT. 34.8 % (36.0-48.0); HEMOGLOBIN. 11.4 g/dL (12.0-16.0); LYMPHOCYTES % 45.3 % (20.0-50.0); MEAN CORPUSCULAR HEMOGLOBIN 25.8 pg (28.0-32.0); MEAN CORPUSCULAR VOLUME 78.7 fL (81.0-99.0); MEAN PLATELET VOLUME 8.4 fl (7.4-10.4); MONOCYTES % 7.9 % (2.0-8.0); PLATELET 176 x1000/uL (130-400); RED BLOOD CELL COUNT 4.43 mill/uL (4.2-5.4)
[2018-11-22 16:33] LABS: CHLORIDE 108 mEq/L (98-107)
[2018-11-22 16:37] LABS: ETHANOL BLOOD < 10 mg/dL
[2018-11-22 16:40] LABS: HCG SCREEN NEGATIVE
[2018-11-22 16:42] LABS: CREATINE KINASE 68 IU/L (26-192)
[2018-11-22 17:10] VITALS: BP 114/80
== END 2018-11-22 17:12 | disposition home or self-care (01) ==
LOC: ER 15:02
DX: F14.129 Cocaine abuse with intoxication, unspecified (principal); G89.29 Other chronic pain; I10 Essential (primary) hypertension; F17.200 Nicotine dependence, unspecified, uncomplicated; Z98.890 Other specified postprocedural states; Z88.5 Allergy status to narcotic agent
CPT/HCPCS: 36415; 80048; 80305; 80307; 80320; 80329; 81003; 81025; 82550; 84703; 85025; 99283; J7030; G0480

== ENCOUNTER 2018-12-09 21:56 | Inpatient (IN) | payer MEDICAID ==
[~2018-12-09] VITALS: Ht 160 cm; Wt 90.7 kg
[2018-12-09] MEDS ORDERED: ONDANSETRON HCL 4MG/2ML INJ IV STA (23:52)
[2018-12-09] MEDS ORDERED: MORPHINE SULFATE 4 MG/ML CPJ (NOT FOR IM USE) IV STA (23:52)
[2018-12-09] MEDS ORDERED: SODIUM CHLORIDE 0.9% 1,000 ML IV ONE (23:52)
[2018-12-10 01:03] LABS: BASOPHILS % 0.9 % (0.0-2.0); EOSINOPHILS % 5.6 % (0.0-5.0); HEMOGLOBIN. 10.5 g/dL (12.0-16.0); LYMPHOCYTES % 50.1 % (20.0-50.0); MEAN CORPUSCULAR HEMOGLOBIN 25.1 pg (28.0-32.0); MEAN CORPUSCULAR VOLUME 78.7 fL (81.0-99.0); MEAN PLATELET VOLUME 8.4 fl (7.4-10.4); MONOCYTES % 6.9 % (2.0-8.0); NEUTROPHILS % 36.5 % (40.0-76.0); PLATELET 180 x1000/uL (130-400); RED BLOOD CELL COUNT 4.19 mill/uL (4.2-5.4); RED CELL DISTRIBUTION WIDTH 16.4 % (11.6-14.6)
[2018-12-10 01:10] LABS: CHLORIDE 110 mEq/L (98-107)
[2018-12-10 01:13] LABS: HCG SCREEN NEGATIVE
[2018-12-10 01:18] LABS: CLARITY URINE CLEAR (CLEAR); COLOR URINE YELLOW (YELLOW); KETONES URINE NEGATIVE (NEGATIVE); LEUKOCYTE ESTERASE URINE 1+ (NEGATIVE); NITRITE URINE NEGATIVE (NEGATIVE); OCCULT BLOOD URINE NEGATIVE (NEGATIVE); PROTEIN URINE NEGATIVE (NEGATIVE); SPECIFIC GRAVITY URINE 1.024 (1.005-1.030)
[2018-12-10 01:28] LABS: INR 0.9; PROTHROMBIN TIME 9.7 sec (9.6-11.0)
[2018-12-10] MEDS ORDERED: CEFTRIAXONE 1 G PREMIX 50 ML IV ONE (02:15)
[2018-12-10] MEDS ORDERED: ASPIRIN 325MG EC TABLET PO ONE (03:00)
[2018-12-10] MEDS ORDERED: AZITHROMYCIN 500 MG TABLET PO ONE (03:15)
[2018-12-10] MEDS ORDERED: METRONIDAZOLE 500MG TABLET PO ONE (03:15)
[2018-12-10] MEDS ORDERED: DOCUSATE SODIUM 100MG CAPSULE PO PRN (04:00)
[2018-12-10] MEDS ORDERED: ACETAMINOPHEN 325MG TABLET PO PRN (04:00)
[2018-12-10] MEDS ORDERED: HYDROCODONE/ACETAMINOPHEN 5/325MG TABLET PO PRN (04:00)
[2018-12-10] MEDS ORDERED: MAGNESIUM/ALUMINUM HYDROXIDE/SIMETHICONE 30ML UDC PO PRN (04:00)
[2018-12-10] MEDS ORDERED: GUAIFENESIN 200MG/10ML SUGAR FREE UDC PO PRN (04:00)
[2018-12-10] MEDS ORDERED: ENOXAPARIN 40MG/0.4ML SYR SUBCUT SCH (04:00)
[2018-12-10] MEDS ORDERED: IPRATROPIUM/ALBUTEROL 0.5-3(2.5)MG/3ML NEB INH PRN (04:00)
[2018-12-10] MEDS ORDERED: CLONIDINE 0.1MG TABLET PO PRN (04:00)
[2018-12-10 06:13] LABS: BASOPHILS % 0.9 % (0.0-2.0); EOSINOPHILS % 5.3 % (0.0-5.0); HEMATOCRIT. 33.1 % (36.0-48.0); HEMOGLOBIN. 10.6 g/dL (12.0-16.0); MEAN CORPUSCULAR VOLUME 77.9 fL (81.0-99.0); MEAN PLATELET VOLUME 8.2 fl (7.4-10.4); MONOCYTES % 10.8 % (2.0-8.0); PLATELET 164 x1000/uL (130-400); RED BLOOD CELL COUNT 4.25 mill/uL (4.2-5.4); RED CELL DISTRIBUTION WIDTH 15.7 % (11.6-14.6)
[2018-12-10 06:16] LABS: CHLORIDE 110 mEq/L (98-107)
[2018-12-10 06:23] LABS: LDL CHOLESTEROL 85 mg/dL (5-100)
[2018-12-10 06:24] LABS: HDL CHOLESTEROL 49 mg/dL (40-59)
[2018-12-10 06:25] LABS: CREATINE KINASE 64 IU/L (26-192)
[2018-12-10 06:28] LABS: CREATINE KINASE MB FRACTION < 1.0 ng/mL (0.5-3.6)
[2018-12-10 08:00] VITALS: BP 136/87
[2018-12-10 11:11] LABS: *AMPHETAMINES SCREEN URINE NEGATIVE (NEGATIVE); CANNABINOID URINE SCREEN NEGATIVE (NEGATIVE)
[2018-12-10 11:13] LABS: *BARBITURATES SCREEN URINE NEGATIVE (NEGATIVE); *BENZODIAZEPINES SCREEN URINE NEGATIVE (NEGATIVE)
[2018-12-10 11:19] LABS: METHADONE URINE SCREEN NEGATIVE (NEGATIVE)
[2018-12-10 11:22] LABS: PHENCYCLIDINE URINE SCREEN NEGATIVE (NEGATIVE)
[2018-12-10 11:23] LABS: OPIATES URINE SCREEN NEGATIVE (NEGATIVE)
[2018-12-10 12:00] VITALS: BP 124/71
[2018-12-10 12:01] LABS: *COCAINE SCREEN URINE PRESUMTIVE POSITIVE (NEGATIVE)
[2018-12-10] MEDS: ENOXAPARIN 30MG/0.3ML SYR SUBCUT SCH ×2 (12:10→21:00)
[2018-12-10 14:32] VITALS: BP 124/71
[2018-12-10] MEDS ORDERED: AZITHROMYCIN 500 MG TABLET PO NR (15:30)
[2018-12-10] MEDS ORDERED: POTASSIUM CHLORIDE 20MEQ TABLET SR PO NR (15:30)
[2018-12-10 16:00] VITALS: BP 133/77
[2018-12-10 16:41] LABS: ETHANOL BLOOD < 10 mg/dL
[2018-12-10 16:44] LABS: TOTAL IRON BINDING CAPACITY 358 ug/dL (250-450)
[2018-12-10 16:46] LABS: CREATINE KINASE 68 IU/L (26-192)
[2018-12-10 16:48] LABS: CREATINE KINASE MB FRACTION < 1.0 ng/mL (0.5-3.6)
[2018-12-10] MEDS: CEFTRIAXONE 1 G PREMIX 50 ML IV SCH (16:56)
[2018-12-10] MEDS: PANTOPRAZOLE 40MG DR TABLET PO SCH (17:06)
[2018-12-10 20:00] VITALS: BP 119/76
[2018-12-10] MEDS: QUETIAPINE FUMARATE 50MG TABLET PO SCH (21:00)
[2018-12-10] MEDS: MORPHINE SULFATE 2 MG/ML CPJ (NOT FOR IM USE) IV PRN (21:47)
[2018-12-11] VITALS: BP 110/64
[2018-12-11 04:00] VITALS: BP 129/75
[2018-12-11 06:11] LABS: BASOPHILS % 1.3 % (0.0-2.0); EOSINOPHILS % 5.9 % (0.0-5.0); HEMATOCRIT. 33.5 % (36.0-48.0); HEMOGLOBIN. 10.6 g/dL (12.0-16.0); LYMPHOCYTES % 52.2 % (20.0-50.0); MEAN CORPUSCULAR VOLUME 79.2 fL (81.0-99.0); MONOCYTES % 8.9 % (2.0-8.0); NEUTROPHILS % 31.7 % (40.0-76.0); PLATELET 179 x1000/uL (130-400); RED BLOOD CELL COUNT 4.23 mill/uL (4.2-5.4); RED CELL DISTRIBUTION WIDTH 16.2 % (11.6-14.6)
[2018-12-11 06:29] LABS: CHLORIDE 111 mEq/L (98-107)
[2018-12-11] MEDS: PANTOPRAZOLE 40MG DR TABLET PO SCH ×2 (07:10→08:18)
[2018-12-11 07:30] VITALS: BP 103/55
[2018-12-11] MEDS: ASPIRIN 81MG EC TABLET PO SCH (08:18)
[2018-12-11] MEDS: ENOXAPARIN 30MG/0.3ML SYR SUBCUT SCH ×2 (08:21→20:31)
[2018-12-11 12:00] VITALS: BP 100/59
[2018-12-11] MEDS ORDERED: ASPI-1158 PO (15:51)
[2018-12-11] MEDS: CEFTRIAXONE 1 G PREMIX 50 ML IV SCH (16:37)
[2018-12-11 17:30] VITALS: BP 121/83
[2018-12-11 20:00] VITALS: BP 115/82
[2018-12-11] MEDS: MORPHINE SULFATE 2 MG/ML CPJ (NOT FOR IM USE) IV PRN (20:29)
[2018-12-11] MEDS: QUETIAPINE FUMARATE 50MG TABLET PO SCH (20:31)
[2018-12-12] VITALS: BP 119/78
[2018-12-12 04:00] VITALS: BP 119/71
[2018-12-12 04:13] LABS: CHLAMYDIA TRACHOMATIS NAA Negative (Negative); NEISSERIA GONORRHOEAE NAA Negative (Negative)
[2018-12-12] MEDS: PANTOPRAZOLE 40MG DR TABLET PO SCH (06:22)
[2018-12-12 08:00] VITALS: BP 124/76
[2018-12-12] MEDS: ENOXAPARIN 30MG/0.3ML SYR SUBCUT SCH (08:18)
[2018-12-12] MEDS: ASPIRIN 81MG EC TABLET PO SCH (08:18)
[2018-12-12 11:26] VITALS: BP 110/80
== END 2018-12-12 12:23 | disposition home or self-care (01) | DRG 816 ==
LOC: ER 21:56 → 8WST 12-10 03:06 → EDBEDREQTM 12-10 03:09 → EDBEDREQ 12-10 03:09 → ENRESERV 12-10 07:07
PROVIDERS: ADMIT Internal Medicine; ATTEND Internal Medicine
DX: T40.5X1A Poisoning by cocaine, accidental (unintentional), initial encounter (principal); G92 Toxic encephalopathy; E44.1 Mild protein-calorie malnutrition; A59.9 Trichomoniasis, unspecified; D64.9 Anemia, unspecified; E87.6 Hypokalemia; F10.10 Alcohol abuse, uncomplicated; I20.9 Angina pectoris, unspecified; R07.9 Chest pain, unspecified; N39.0 Urinary tract infection, site not specified; F17.200 Nicotine dependence, unspecified, uncomplicated; I10 Essential (primary) hypertension; K42.9 Umbilical hernia without obstruction or gangrene; K44.9 Diaphragmatic hernia without obstruction or gangrene; F99 Mental disorder, not otherwise specified; K62.5 Hemorrhage of anus and rectum; J44.9 Chronic obstructive pulmonary disease, unspecified; F14.10 Cocaine abuse, uncomplicated; Y92.89 Other specified places as the place of occurrence of the external cause; Z88.5 Allergy status to narcotic agent; Z97.5 Presence of (intrauterine) contraceptive device; Z98.891 History of uterine scar from previous surgery
CPT/HCPCS: 36415; 71045; 74176; 80048; 80061; 80305; 80320; 82550; 82553; 82728; 83036; 83540; 83550; 83735; 83880; 84443; 84484; 84703; 87210; 87491; 87591; 93005; 93306; 93970; 96361; 96365; 96375; 99285; J0696; J1650; J2270; J2405; J7030; J7050; G0480

== ENCOUNTER 2019-01-12 22:09 | Emergency (ER) | payer MEDICAID ==
[~2019-01-12] VITALS: Ht 170.2 cm; Wt 73.0 kg
[~2019-01-12 22:09] MED LIST changes: +ASPI-1158 PO
[2019-01-13] MEDS ORDERED: ONDANSETRON HCL 4MG/2ML INJ IV STA (03:28)
[2019-01-13] MEDS ORDERED: SODIUM CHLORIDE 0.9% 1,000 ML IV ONE (03:28)
[2019-01-13] MEDS ORDERED: FAMOTIDINE 20MG/2ML VIAL IV STA (03:28)
[2019-01-13 04:18] LABS: BASOPHILS % 0.8 % (0.0-2.0); HEMATOCRIT. 29.4 % (36.0-48.0); HEMOGLOBIN. 9.4 g/dL (12.0-16.0); LYMPHOCYTES % 50.6 % (20.0-50.0); MEAN CORPUSCULAR HEMOGLOBIN 24.9 pg (28.0-32.0); MEAN CORPUSCULAR VOLUME 77.5 fL (81.0-99.0); MEAN PLATELET VOLUME 8.1 fl (7.4-10.4); MONOCYTES % 8.4 % (2.0-8.0); NEUTROPHILS % 35.2 % (40.0-76.0); PLATELET 165 x1000/uL (130-400); RED BLOOD CELL COUNT 3.79 mill/uL (4.2-5.4); RED CELL DISTRIBUTION WIDTH 16.3 % (11.6-14.6)
[2019-01-13 04:25] LABS: CHLORIDE 111 mEq/L (98-107)
[2019-01-13 04:33] LABS: ETHANOL BLOOD < 10 mg/dL
[2019-01-13 05:38] LABS: CLARITY URINE CLEAR (CLEAR); COLOR URINE YELLOW (YELLOW); KETONES URINE NEGATIVE (NEGATIVE); LEUKOCYTE ESTERASE URINE NEGATIVE (NEGATIVE); NITRITE URINE NEGATIVE (NEGATIVE); OCCULT BLOOD URINE NEGATIVE (NEGATIVE); PH URINE 5.5 (4.5-8.0); PROTEIN URINE NEGATIVE (NEGATIVE); SPECIFIC GRAVITY URINE 1.029 (1.005-1.030); UROBILINOGEN URINE 0.2 E.U./dL (0.2-1.0)
[2019-01-13 07:23] VITALS: BP 114/67
== END 2019-01-13 01:10 | disposition home or self-care (01) ==
LOC: ER 22:09
DX: K29.70 Gastritis, unspecified, without bleeding (principal); R11.2 Nausea with vomiting, unspecified; Z87.19 Personal history of other diseases of the digestive system; Z98.890 Other specified postprocedural states; Z88.5 Allergy status to narcotic agent
CPT/HCPCS: 36415; 80053; 80320; 81003; 81025; 83690; 85025; 96361; 96374; 96375; 99283; J2405; J3490; J7030; G0480

== ENCOUNTER 2019-01-27 21:48 | Emergency (ER) | payer MEDICAID ==
[~2019-01-27] VITALS: Ht 157.5 cm; Wt 91.0 kg
[2019-01-27] MEDS ORDERED: KETOROLAC 30MG/ML VIAL IV STA (23:34)
[2019-01-27] MEDS ORDERED: MAGNESIUM/ALUMINUM HYDROXIDE/SIMETHICONE 30ML UDC PO STA (23:34)
[2019-01-27] MEDS ORDERED: SODIUM CHLORIDE 0.9% 1,000 ML IV ONE (23:34)
[2019-01-28 00:37] LABS: BASOPHILS % 0.8 % (0.0-2.0); EOSINOPHILS % 4.1 % (0.0-5.0); HEMATOCRIT. 31.8 % (36.0-48.0); HEMOGLOBIN. 10.1 g/dL (12.0-16.0); LYMPHOCYTES % 54.9 % (20.0-50.0); MEAN CORPUSCULAR HEMOGLOBIN 24.4 pg (28.0-32.0); MEAN CORPUSCULAR VOLUME 76.9 fL (81.0-99.0); MEAN PLATELET VOLUME 8.3 fl (7.4-10.4); MONOCYTES % 9.4 % (2.0-8.0); NEUTROPHILS % 30.8 % (40.0-76.0); PLATELET 217 x1000/uL (130-400); RED BLOOD CELL COUNT 4.14 mill/uL (4.2-5.4); RED CELL DISTRIBUTION WIDTH 15.5 % (11.6-14.6)
[2019-01-28 00:38] LABS: CLARITY URINE CLOUDY (CLEAR); COLOR URINE YELLOW (YELLOW); KETONES URINE TRACE (NEGATIVE); LEUKOCYTE ESTERASE URINE TRACE (NEGATIVE); NITRITE URINE POSITIVE (NEGATIVE); OCCULT BLOOD URINE NEGATIVE (NEGATIVE); PH URINE 5.5 (4.5-8.0); PROTEIN URINE TRACE (NEGATIVE); SPECIFIC GRAVITY URINE 1.038 (1.005-1.030)
[2019-01-28 00:44] LABS: CHLORIDE 108 mEq/L (98-107)
[2019-01-28 00:48] LABS: ETHANOL BLOOD < 10 mg/dL
[2019-01-28 03:32] VITALS: BP 127/81
== END 2019-01-28 03:38 | disposition home or self-care (01) ==
LOC: ER 01-28 01:47
DX: R07.89 Other chest pain (principal); N30.90 Cystitis, unspecified without hematuria; I10 Essential (primary) hypertension; F14.10 Cocaine abuse, uncomplicated; F17.210 Nicotine dependence, cigarettes, uncomplicated; Z79.82 Long term (current) use of aspirin; Z88.6 Allergy status to analgesic agent
CPT/HCPCS: 36415; 71045; 80053; 80320; 81003; 83690; 84484; 85025; 93005; 96374; 99284; J1885; J7030; G0480

== ENCOUNTER 2019-02-05 22:45 | Emergency (ER) | payer MEDICAID ==
[~2019-02-05] VITALS: Ht 167.6 cm; Wt 85.0 kg
[2019-02-05 22:56] VITALS: BP 112/68
[2019-02-05] MEDS ORDERED: SODIUM CHLORIDE 0.9% 1,000 ML IV ONE (23:19)
[2019-02-05] MEDS ORDERED: ONDANSETRON HCL 4MG/2ML INJ IV STA (23:19)
[2019-02-05] MEDS ORDERED: KETOROLAC 15MG/ML VIAL IV ONE (23:30)
== END 2019-02-06 00:47 | disposition left against medical advice (07) ==
LOC: ER 22:45
DX: R07.9 Chest pain, unspecified (principal); R10.9 Unspecified abdominal pain; I10 Essential (primary) hypertension; F17.200 Nicotine dependence, unspecified, uncomplicated; Z88.6 Allergy status to analgesic agent
CPT/HCPCS: 71045; 93005; 99283; J7030

== ENCOUNTER 2019-02-06 01:06 | Emergency (ER) | payer MEDICAID ==
[~2019-02-06] VITALS: Ht 160 cm; Wt 91.0 kg
[2019-02-06 01:43] VITALS: BP 134/95
== END 2019-02-06 04:35 | disposition left against medical advice (07) ==
LOC: ER 01:06
DX: Z53.21 Procedure and treatment not carried out due to patient leaving prior to being seen by health care provider (principal); I10 Essential (primary) hypertension; Z88.6 Allergy status to analgesic agent

== ENCOUNTER 2019-02-07 21:20 | Inpatient (IN) | payer MEDICAID ==
[~2019-02-07] VITALS: Ht 160 cm; Wt 90.7 kg
[2019-02-08] MEDS ORDERED: KETOROLAC 30MG/ML VIAL IV STA (03:09)
[2019-02-08 03:31] LABS: BASOPHILS % 0.6 % (0.0-2.0); EOSINOPHILS % 4.9 % (0.0-5.0); HEMATOCRIT. 29.7 % (36.0-48.0); HEMOGLOBIN. 9.4 g/dL (12.0-16.0); LYMPHOCYTES % 52.7 % (20.0-50.0); MEAN CORPUSCULAR HEMOGLOBIN 23.9 pg (28.0-32.0); MEAN CORPUSCULAR VOLUME 75.3 fL (81.0-99.0); MEAN PLATELET VOLUME 8.1 fl (7.4-10.4); MONOCYTES % 9.3 % (2.0-8.0); NEUTROPHILS % 32.5 % (40.0-76.0); PLATELET 168 x1000/uL (130-400); RED BLOOD CELL COUNT 3.94 mill/uL (4.2-5.4); RED CELL DISTRIBUTION WIDTH 15.3 % (11.6-14.6)
[2019-02-08 03:33] LABS: CLARITY URINE CLOUDY (CLEAR); COLOR URINE DARK YELLOW (YELLOW); KETONES URINE TRACE (NEGATIVE); LEUKOCYTE ESTERASE URINE NEGATIVE (NEGATIVE); NITRITE URINE NEGATIVE (NEGATIVE); OCCULT BLOOD URINE NEGATIVE (NEGATIVE); PROTEIN URINE 1+ (NEGATIVE); SPECIFIC GRAVITY URINE 1.042 (1.005-1.030)
[2019-02-08 03:38] LABS: CHLORIDE 110 mEq/L (98-107); PROTHROMBIN TIME 10.7 sec (9.6-11.0)
[2019-02-08 03:41] LABS: HCG SCREEN NEGATIVE
[2019-02-08 03:45] LABS: *AMPHETAMINES SCREEN URINE NEGATIVE (NEGATIVE); *BARBITURATES SCREEN URINE NEGATIVE (NEGATIVE); *BENZODIAZEPINES SCREEN URINE NEGATIVE (NEGATIVE); METHADONE URINE SCREEN NEGATIVE (NEGATIVE); OPIATES URINE SCREEN NEGATIVE (NEGATIVE)
[2019-02-08 03:46] LABS: *COCAINE SCREEN URINE PRESUMTIVE POSITIVE (NEGATIVE); CANNABINOID URINE SCREEN NEGATIVE (NEGATIVE); PHENCYCLIDINE URINE SCREEN NEGATIVE (NEGATIVE)
[2019-02-08] MEDS ORDERED: POTASSIUM CHLORIDE INJ 40 MEQ in DEXT 5% WATER 500 ML IV ONE (04:00)
[2019-02-08] MEDS ORDERED: MAGNESIUM/ALUMINUM HYDROXIDE/SIMETHICONE 30ML UDC PO PRN (07:45)
[2019-02-08] MEDS ORDERED: ACETAMINOPHEN 325MG TABLET PO PRN (07:45)
[2019-02-08] MEDS ORDERED: IPRATROPIUM/ALBUTEROL 0.5-3(2.5)MG/3ML NEB HHN PRN (07:45)
[2019-02-08] MEDS ORDERED: DOCUSATE SODIUM 100MG CAPSULE PO PRN (07:45)
[2019-02-08] MEDS ORDERED: DIPHENHYDRAMINE 50MG/ML VIAL IV PRN (07:45)
[2019-02-08] MEDS ORDERED: GUAIFENESIN 200MG/10ML SUGAR FREE UDC PO PRN (07:45)
[2019-02-08 08:30] VITALS: BP 126/70
[2019-02-08 08:38] LABS: PHOSPHORUS 2.5 mg/dL (2.5-4.9)
[2019-02-08 10:00] VITALS: BP 132/73
[2019-02-08 12:00] VITALS: BP 132/73
[2019-02-08] MEDS: SODIUM CHLORIDE 0.9% 1,000 ML IV SCH (14:49)
[2019-02-08 16:00] VITALS: BP 130/73
[2019-02-08] MEDS: MORPHINE SULFATE 2 MG/ML CPJ (NOT FOR IM USE) IV PRN (18:24)
[2019-02-08] MEDS: ONDANSETRON HCL 4MG/2ML INJ IV PRN (18:24)
[2019-02-08 20:00] VITALS: BP 147/82
[2019-02-09] VITALS: BP 140/79
[2019-02-09] MEDS: ONDANSETRON HCL 4MG/2ML INJ IV PRN ×3 (01:17→21:18)
[2019-02-09] MEDS: MORPHINE SULFATE 2 MG/ML CPJ (NOT FOR IM USE) IV PRN ×3 (01:17→21:12)
[2019-02-09] MEDS: SODIUM CHLORIDE 0.9% 1,000 ML IV SCH ×3 (01:22→13:16)
[2019-02-09 04:00] VITALS: BP 135/78
[2019-02-09 06:20] LABS: BASOPHILS % 1.1 % (0.0-2.0); EOSINOPHILS % 4.5 % (0.0-5.0); HEMATOCRIT. 28.8 % (36.0-48.0); HEMOGLOBIN. 9.2 g/dL (12.0-16.0); LYMPHOCYTES % 52.5 % (20.0-50.0); MEAN CORPUSCULAR VOLUME 75.1 fL (81.0-99.0); MEAN PLATELET VOLUME 8.8 fl (7.4-10.4); MONOCYTES % 8.1 % (2.0-8.0); NEUTROPHILS % 33.8 % (40.0-76.0); PLATELET 157 x1000/uL (130-400); RED BLOOD CELL COUNT 3.83 mill/uL (4.2-5.4); RED CELL DISTRIBUTION WIDTH 15.3 % (11.6-14.6)
[2019-02-09 06:40] LABS: CHLORIDE 111 mEq/L (98-107)
[2019-02-09 06:49] LABS: HDL CHOLESTEROL 43 mg/dL (40-59); LDL CHOLESTEROL 86 mg/dL (5-100)
[2019-02-09] MEDS ORDERED: POTASSIUM CHLORIDE 20MEQ TABLET SR PO SCH (07:30)
[2019-02-09 08:00] VITALS: BP 112/64
[2019-02-09 12:00] VITALS: BP 119/60
[2019-02-09 16:12] VITALS: BP 136/76
[2019-02-09] MEDS ORDERED: HYDROCODONE/ACETAMINOPHEN 5/325MG TABLET PO PRN (19:45)
[2019-02-09 20:00] VITALS: BP 151/84
[2019-02-10] VITALS: BP 116/65
[2019-02-10 04:00] VITALS: BP 167/83
[2019-02-10] MEDS: ONDANSETRON HCL 4MG/2ML INJ IV PRN ×2 (04:55→13:39)
[2019-02-10] MEDS: MORPHINE SULFATE 2 MG/ML CPJ (NOT FOR IM USE) IV PRN ×2 (04:55→13:40)
[2019-02-10] MEDS: CLONIDINE 0.1MG TABLET PO PRN ×2 (04:55→20:07)
[2019-02-10] MEDS: SODIUM CHLORIDE 0.9% 1,000 ML IV SCH ×2 (04:56→16:22)
[2019-02-10 08:00] VITALS: BP 132/87
[2019-02-10 12:00] VITALS: BP 126/85
[2019-02-10 16:00] VITALS: BP 141/83
[2019-02-10 20:00] VITALS: BP 165/75
[2019-02-11] VITALS: BP 127/79
[2019-02-11] MEDS: SODIUM CHLORIDE 0.9% 1,000 ML IV SCH (03:53)
[2019-02-11 04:00] VITALS: BP 114/57
[2019-02-11 08:00] VITALS: BP 115/83
[2019-02-11 10:55] VITALS: BP 115/83
== END 2019-02-11 11:15 | disposition home or self-care (01) | DRG 425 ==
LOC: ER 21:20 → 5WST 02-08 07:01 → ENRESERV 02-08 07:21
PROVIDERS: ADMIT Internal Medicine; ATTEND Internal Medicine
DX: E87.6 Hypokalemia (principal); E44.1 Mild protein-calorie malnutrition; D50.9 Iron deficiency anemia, unspecified; F14.90 Cocaine use, unspecified, uncomplicated; G89.29 Other chronic pain; I10 Essential (primary) hypertension; Z79.899 Other long term (current) drug therapy; Z79.82 Long term (current) use of aspirin; Z88.5 Allergy status to narcotic agent; M94.0 Chondrocostal junction syndrome [Tietze]
CPT/HCPCS: 36415; 71045; 74176; 80061; 80305; 81003; 83735; 84100; 84132; 84443; 84484; 84703; 93005; 93970; 96374; 99285; J1885; J2270; J2405; J3480; J7060

== ENCOUNTER 2019-02-16 01:40 | Emergency (ER) | payer MEDICAID ==
[~2019-02-16] VITALS: Ht 160 cm; Wt 91.0 kg
[2019-02-16 02:34] VITALS: BP 132/90
== END 2019-02-16 06:45 | disposition left against medical advice (07) ==
LOC: ER 01:40
DX: Z53.21 Procedure and treatment not carried out due to patient leaving prior to being seen by health care provider (principal); F17.200 Nicotine dependence, unspecified, uncomplicated; Z88.6 Allergy status to analgesic agent
CPT/HCPCS: 93005

== ENCOUNTER 2019-02-19 19:38 | Emergency (ER) | payer MEDICAID ==
[~2019-02-19] VITALS: Ht 162.6 cm; Wt 90.0 kg
[2019-02-20] LABS: EOSINOPHILS % 5.1 % (0.0-5.0); HEMATOCRIT. 30.5 % (36.0-48.0); HEMOGLOBIN. 9.8 g/dL (12.0-16.0); LYMPHOCYTES % 51.1 % (20.0-50.0); MEAN CORPUSCULAR HEMOGLOBIN 24.1 pg (28.0-32.0); MEAN CORPUSCULAR VOLUME 74.9 fL (81.0-99.0); MONOCYTES % 9.2 % (2.0-8.0); NEUTROPHILS % 33.6 % (40.0-76.0); PLATELET 208 x1000/uL (130-400); RED BLOOD CELL COUNT 4.06 mill/uL (4.2-5.4); RED CELL DISTRIBUTION WIDTH 15.8 % (11.6-14.6)
[2019-02-20 00:08] LABS: CHLORIDE 109 mEq/L (98-107)
[2019-02-20 00:11] LABS: HCG SCREEN NEGATIVE
[2019-02-20 06:10] VITALS: BP 114/75
== END 2019-02-20 10:10 | disposition left against medical advice (07) ==
LOC: ER 19:38
DX: R07.9 Chest pain, unspecified (principal); Z79.82 Long term (current) use of aspirin; Z86.19 Personal history of other infectious and parasitic diseases
CPT/HCPCS: 36415; 71045; 84703; 93005; 99284

== ENCOUNTER 2019-03-01 02:19 | Emergency (ER) | payer MEDICAID ==
[~2019-03-01] VITALS: Ht 167.6 cm; Wt 73.0 kg
[2019-03-01 04:31] LABS: CLARITY URINE CLEAR (CLEAR); COLOR URINE YELLOW (YELLOW); KETONES URINE TRACE (NEGATIVE); LEUKOCYTE ESTERASE URINE NEGATIVE (NEGATIVE); NITRITE URINE NEGATIVE (NEGATIVE); OCCULT BLOOD URINE NEGATIVE (NEGATIVE); PH URINE 5.5 (4.5-8.0); PROTEIN URINE NEGATIVE (NEGATIVE); SPECIFIC GRAVITY URINE 1.034 (1.005-1.030)
[2019-03-01 05:40] VITALS: BP 118/69
== END 2019-03-01 05:46 | disposition home or self-care (01) ==
LOC: ER 02:19
DX: R10.9 Unspecified abdominal pain (principal); R07.89 Other chest pain; F17.200 Nicotine dependence, unspecified, uncomplicated; F10.20 Alcohol dependence, uncomplicated; Y90.0 Blood alcohol level of less than 20 mg/100 ml
CPT/HCPCS: 81003; 81025; 99283

== ENCOUNTER 2019-03-06 22:13 | Emergency (ER) | payer MEDICAID ==
[~2019-03-06] VITALS: Ht 160 cm; Wt 90.0 kg
[2019-03-07] MEDS ORDERED: KETOROLAC 30MG/ML VIAL IV STA (04:22)
[2019-03-07] MEDS ORDERED: SODIUM CHLORIDE 0.9% 1,000 ML IV ONE (05:25)
[2019-03-07 06:46] LABS: BASOPHILS % 0.2 % (0.0-2.0); EOSINOPHILS % 5.1 % (0.0-5.0); HEMATOCRIT. 27.6 % (36.0-48.0); HEMOGLOBIN. 8.7 g/dL (12.0-16.0); LYMPHOCYTES % 44.4 % (20.0-50.0); MEAN CORPUSCULAR HEMOGLOBIN 23.7 pg (28.0-32.0); NEUTROPHILS % 41.3 % (40.0-76.0); RED BLOOD CELL COUNT 3.68 mill/uL (4.2-5.4); RED CELL DISTRIBUTION WIDTH 16.2 % (11.6-14.6)
[2019-03-07 06:47] LABS: CHLORIDE 111 mEq/L (98-107)
[2019-03-07 08:43] LABS: CLARITY URINE CLEAR (CLEAR); COLOR URINE YELLOW (YELLOW); KETONES URINE NEGATIVE (NEGATIVE); LEUKOCYTE ESTERASE URINE NEGATIVE (NEGATIVE); NITRITE URINE NEGATIVE (NEGATIVE); OCCULT BLOOD URINE NEGATIVE (NEGATIVE); PROTEIN URINE NEGATIVE (NEGATIVE); SPECIFIC GRAVITY URINE 1.023 (1.005-1.030); UROBILINOGEN URINE 0.2 E.U./dL (0.2-1.0)
[2019-03-07 09:01] LABS: PLATELET 145 x1000/uL (130-400)
[2019-03-07 10:50] VITALS: BP 129/73
== END 2019-03-07 10:50 | disposition home or self-care (01) ==
LOC: ER 22:13
DX: R07.9 Chest pain, unspecified (principal); M94.0 Chondrocostal junction syndrome [Tietze]; Z88.6 Allergy status to analgesic agent; Z79.82 Long term (current) use of aspirin
CPT/HCPCS: 36415; 71045; 80053; 81003; 81025; 83880; 84484; 85025; 93005; 96374; 99284; J7030; Z7610

== ENCOUNTER 2019-03-12 00:33 | Emergency (ER) | payer MEDICAID ==
[~2019-03-12] VITALS: Ht 160 cm; Wt 91.0 kg
[2019-03-12 01:23] LABS: BASOPHILS % 0.5 % (0.0-2.0); EOSINOPHILS % 4.2 % (0.0-5.0); HEMATOCRIT. 30.4 % (36.0-48.0); HEMOGLOBIN. 9.5 g/dL (12.0-16.0); LYMPHOCYTES % 46.1 % (20.0-50.0); MEAN CORPUSCULAR HEMOGLOBIN 23.1 pg (28.0-32.0); MEAN CORPUSCULAR VOLUME 73.7 fL (81.0-99.0); MEAN PLATELET VOLUME 7.9 fl (7.4-10.4); MONOCYTES % 8.9 % (2.0-8.0); NEUTROPHILS % 40.3 % (40.0-76.0); PLATELET 208 x1000/uL (130-400); RED BLOOD CELL COUNT 4.12 mill/uL (4.2-5.4)
[2019-03-12 01:26] LABS: PROTHROMBIN TIME 10.4 sec (9.6-11.0)
[2019-03-12 01:27] LABS: CHLORIDE 110 mEq/L (98-107)
[2019-03-12] MEDS ORDERED: FAMOTIDINE 20MG TABLET PO ONE (02:00)
[2019-03-12 02:21] LABS: CLARITY URINE CLEAR (CLEAR); COLOR URINE YELLOW (YELLOW); KETONES URINE TRACE (NEGATIVE); LEUKOCYTE ESTERASE URINE NEGATIVE (NEGATIVE); NITRITE URINE NEGATIVE (NEGATIVE); OCCULT BLOOD URINE NEGATIVE (NEGATIVE); PH URINE 8.5 (4.5-8.0); PROTEIN URINE NEGATIVE (NEGATIVE); SPECIFIC GRAVITY URINE 1.023 (1.005-1.030)
[2019-03-12 04:05] VITALS: BP 127/62
== END 2019-03-12 05:18 | disposition home or self-care (01) ==
LOC: ER 00:33
DX: R10.9 Unspecified abdominal pain (principal); F10.10 Alcohol abuse, uncomplicated; I10 Essential (primary) hypertension; F14.10 Cocaine abuse, uncomplicated; F17.200 Nicotine dependence, unspecified, uncomplicated; Z98.890 Other specified postprocedural states; Z88.5 Allergy status to narcotic agent; Z79.82 Long term (current) use of aspirin; Z79.899 Other long term (current) drug therapy; Z87.19 Personal history of other diseases of the digestive system; Y90.9 Presence of alcohol in blood, level not specified
CPT/HCPCS: 36415; 81003; 81025; 99283

== ENCOUNTER 2019-03-16 21:16 | Emergency (ER) | payer MEDICAID ==
[~2019-03-16] VITALS: Ht 165.1 cm; Wt 90.0 kg
[2019-03-16] MEDS ORDERED: SODIUM CHLORIDE 0.9% 1,000 ML IV ONE (21:43)
[2019-03-16] MEDS ORDERED: KETOROLAC 30MG/ML VIAL IV STA (21:43)
[2019-03-16 23:24] LABS: BASOPHILS % 1.8 % (0.0-2.0); EOSINOPHILS % 4.3 % (0.0-5.0); HEMATOCRIT. 29.9 % (36.0-48.0); HEMOGLOBIN. 9.5 g/dL (12.0-16.0); LYMPHOCYTES % 49.5 % (20.0-50.0); MEAN CORPUSCULAR HEMOGLOBIN 23.4 pg (28.0-32.0); MEAN CORPUSCULAR VOLUME 73.6 fL (81.0-99.0); MEAN PLATELET VOLUME 8.4 fl (7.4-10.4); MONOCYTES % 9.6 % (2.0-8.0); NEUTROPHILS % 34.8 % (40.0-76.0); PLATELET 223 x1000/uL (130-400); RED BLOOD CELL COUNT 4.06 mill/uL (4.2-5.4); RED CELL DISTRIBUTION WIDTH 17.3 % (11.6-14.6)
[2019-03-16 23:30] LABS: CHLORIDE 109 mEq/L (98-107)
[2019-03-16 23:32] LABS: PROTHROMBIN TIME 10.8 sec (9.6-11.0)
[2019-03-17 02:38] VITALS: BP 128/74
[2019-03-17 02:38] LABS: CLARITY URINE CLOUDY (CLEAR); COLOR URINE YELLOW (YELLOW); KETONES URINE TRACE (NEGATIVE); LEUKOCYTE ESTERASE URINE NEGATIVE (NEGATIVE); NITRITE URINE NEGATIVE (NEGATIVE); OCCULT BLOOD URINE 2+ (NEGATIVE); PH URINE 5.5 (4.5-8.0); PROTEIN URINE NEGATIVE (NEGATIVE); SPECIFIC GRAVITY URINE 1.028 (1.005-1.030)
== END 2019-03-17 02:39 | disposition home or self-care (01) ==
LOC: ER 21:16
DX: R10.30 Lower abdominal pain, unspecified (principal); R07.9 Chest pain, unspecified; R11.0 Nausea; I10 Essential (primary) hypertension; Z87.19 Personal history of other diseases of the digestive system; Z79.82 Long term (current) use of aspirin; Z88.5 Allergy status to narcotic agent
CPT/HCPCS: 36415; 74018; 80053; 81003; 81025; 83690; 85025; 85610; 96374; 99284; J1885; J7030

== ENCOUNTER 2019-03-18 21:35 | Emergency (ER) | payer MEDICAID ==
[~2019-03-18] VITALS: Ht 165.1 cm; Wt 68.0 kg
[2019-03-19 03:30] LABS: BASOPHILS % 0.5 % (0.0-2.0); HEMOGLOBIN. 9.2 g/dL (12.0-16.0); LYMPHOCYTES % 41.5 % (20.0-50.0); MEAN CORPUSCULAR HEMOGLOBIN 23.3 pg (28.0-32.0); MEAN CORPUSCULAR VOLUME 73.3 fL (81.0-99.0); MEAN PLATELET VOLUME 7.7 fl (7.4-10.4); MONOCYTES % 9.3 % (2.0-8.0); NEUTROPHILS % 42.7 % (40.0-76.0); PLATELET 226 x1000/uL (130-400); RED BLOOD CELL COUNT 3.96 mill/uL (4.2-5.4); RED CELL DISTRIBUTION WIDTH 17.6 % (11.6-14.6)
[2019-03-19 03:42] LABS: CHLORIDE 108 mEq/L (98-107)
[2019-03-19 03:43] LABS: PROTHROMBIN TIME 10.6 sec (9.6-11.0)
[2019-03-19] MEDS ORDERED: POTASSIUM CHLORIDE 20MEQ TABLET SR PO SCH (05:15)
[2019-03-19 05:58] VITALS: BP 137/69
== END 2019-03-19 06:36 | disposition home or self-care (01) ==
LOC: ER 21:35
DX: K29.00 Acute gastritis without bleeding (principal); E87.6 Hypokalemia; I10 Essential (primary) hypertension; Z79.899 Other long term (current) drug therapy; Z88.5 Allergy status to narcotic agent
CPT/HCPCS: 36415; 81025; 99283

== ENCOUNTER 2019-03-19 21:22 | Emergency (ER) | payer MEDICAID ==
[~2019-03-19] VITALS: Ht 160 cm; Wt 90.0 kg
[2019-03-20] MEDS ORDERED: SODIUM CHLORIDE 0.9% 1,000 ML IV ONE (06:59)
[2019-03-20] MEDS ORDERED: MORPHINE SULFATE 4 MG/ML CPJ (NOT FOR IM USE) IV STA (06:59)
[2019-03-20] MEDS ORDERED: ONDANSETRON HCL 4MG/2ML INJ IV STA (06:59)
[2019-03-20 07:39] LABS: CLARITY URINE CLOUDY (CLEAR); KETONES URINE TRACE (NEGATIVE); LEUKOCYTE ESTERASE URINE TRACE (NEGATIVE); NITRITE URINE NEGATIVE (NEGATIVE); OCCULT BLOOD URINE 3+ (NEGATIVE); PH URINE 5.5 (4.5-8.0); PROTEIN URINE 1+ (NEGATIVE); SPECIFIC GRAVITY URINE 1.037 (1.005-1.030)
[2019-03-20 07:40] LABS: COLOR URINE DARK YELLOW (YELLOW)
[2019-03-20 07:56] LABS: BASOPHILS % 0.6 % (0.0-2.0); EOSINOPHILS % 6.5 % (0.0-5.0); HEMATOCRIT. 29.7 % (36.0-48.0); HEMOGLOBIN. 9.3 g/dL (12.0-16.0); LYMPHOCYTES % 39.3 % (20.0-50.0); MEAN CORPUSCULAR HEMOGLOBIN 23.6 pg (28.0-32.0); MEAN PLATELET VOLUME 8.8 fl (7.4-10.4); NEUTROPHILS % 42.6 % (40.0-76.0); PLATELET 231 x1000/uL (130-400); RED BLOOD CELL COUNT 3.96 mill/uL (4.2-5.4); RED CELL DISTRIBUTION WIDTH 17.6 % (11.6-14.6)
[2019-03-20 08:06] LABS: CHLORIDE 112 mEq/L (98-107)
[2019-03-20] MEDS ORDERED: CEPHALEXIN 250MG CAPSULE PO ONE (08:30)
[2019-03-20] MEDS ORDERED: KETOROLAC 30MG/ML VIAL IV ONE (08:30)
[2019-03-20 09:49] VITALS: BP 118/68
== END 2019-03-20 09:56 | disposition home or self-care (01) ==
LOC: ER 21:22
DX: N39.0 Urinary tract infection, site not specified (principal); I10 Essential (primary) hypertension; Z88.6 Allergy status to analgesic agent; Z79.82 Long term (current) use of aspirin
CPT/HCPCS: 36415; 80053; 81003; 81025; 83690; 85025; 93005; 96361; 96374; 96375; 99284; J1885; J2405; J7030; Z7610

== ENCOUNTER 2019-03-25 23:26 | Emergency (ER) | payer MEDICAID ==
[~2019-03-25] VITALS: Ht 167.6 cm; Wt 73.0 kg
[2019-03-26] MEDS ORDERED: FAMOTIDINE 20MG TABLET PO ONE (01:30)
[2019-03-26 02:00] VITALS: BP 121/69
== END 2019-03-26 02:21 | disposition home or self-care (01) ==
LOC: ER 23:26
DX: K29.20 Alcoholic gastritis without bleeding (principal); F10.10 Alcohol abuse, uncomplicated; I10 Essential (primary) hypertension; F17.200 Nicotine dependence, unspecified, uncomplicated; Z98.890 Other specified postprocedural states; Z88.5 Allergy status to narcotic agent; Z79.82 Long term (current) use of aspirin; Z79.899 Other long term (current) drug therapy; Y90.9 Presence of alcohol in blood, level not specified
CPT/HCPCS: 99283

== ENCOUNTER 2019-04-01 22:00 | Emergency (ER) | payer MEDICAID ==
[~2019-04-01] VITALS: Ht 167.6 cm; Wt 100.0 kg
[2019-04-01 22:06] VITALS: BP 124/83
== END 2019-04-02 03:11 | disposition left against medical advice (07) ==
LOC: ER 22:00
DX: R10.9 Unspecified abdominal pain (principal); Z53.21 Procedure and treatment not carried out due to patient leaving prior to being seen by health care provider

== ENCOUNTER 2019-04-23 21:48 | Emergency (ER) | payer MEDICAID ==
[~2019-04-23] VITALS: Ht 160 cm; Wt 91.0 kg
[2019-04-24] MEDS ORDERED: SODIUM CHLORIDE 0.9% 1,000 ML IV ONE (00:13)
[2019-04-24] MEDS ORDERED: MORPHINE SULFATE 4 MG/ML CPJ (NOT FOR IM USE) IV STA (00:13)
[2019-04-24] MEDS ORDERED: ONDANSETRON HCL 4MG/2ML INJ IV STA (00:13)
[2019-04-24 00:58] LABS: BASOPHILS % 0.4 % (0.0-2.0); EOSINOPHILS % 4.3 % (0.0-5.0); HEMATOCRIT. 29.3 % (36.0-48.0); HEMOGLOBIN. 9.4 g/dL (12.0-16.0); LYMPHOCYTES % 53.7 % (20.0-50.0); MEAN CORPUSCULAR HEMOGLOBIN 23.2 pg (28.0-32.0); MEAN CORPUSCULAR VOLUME 72.5 fL (81.0-99.0); MEAN PLATELET VOLUME 8.2 fl (7.4-10.4); MONOCYTES % 8.2 % (2.0-8.0); NEUTROPHILS % 33.4 % (40.0-76.0); PLATELET 235 x1000/uL (130-400); RED BLOOD CELL COUNT 4.04 mill/uL (4.2-5.4); RED CELL DISTRIBUTION WIDTH 19.9 % (11.6-14.6)
[2019-04-24 01:05] LABS: CHLORIDE 111 mEq/L (98-107)
[2019-04-24 01:11] LABS: ETHANOL BLOOD 50 mg/dL
[2019-04-24 01:25] LABS: CLARITY URINE CLEAR (CLEAR); COLOR URINE YELLOW (YELLOW); KETONES URINE NEGATIVE (NEGATIVE); LEUKOCYTE ESTERASE URINE TRACE (NEGATIVE); NITRITE URINE NEGATIVE (NEGATIVE); OCCULT BLOOD URINE NEGATIVE (NEGATIVE); PH URINE 5.5 (4.5-8.0); PROTEIN URINE NEGATIVE (NEGATIVE); SPECIFIC GRAVITY URINE 1.025 (1.005-1.030); UROBILINOGEN URINE 0.2 E.U./dL (0.2-1.0)
[2019-04-24 01:52] LABS: *AMPHETAMINES SCREEN URINE NEGATIVE (NEGATIVE)
[2019-04-24 02:10] LABS: *BARBITURATES SCREEN URINE NEGATIVE (NEGATIVE); *BENZODIAZEPINES SCREEN URINE NEGATIVE (NEGATIVE)
[2019-04-24 02:11] LABS: *COCAINE SCREEN URINE PRESUMTIVE POSITIVE (NEGATIVE); CANNABINOID URINE SCREEN NEGATIVE (NEGATIVE); METHADONE URINE SCREEN NEGATIVE (NEGATIVE); OPIATES URINE SCREEN NEGATIVE (NEGATIVE); PHENCYCLIDINE URINE SCREEN NEGATIVE (NEGATIVE)
[2019-04-24 05:56] VITALS: BP 122/78
== END 2019-04-24 07:52 | disposition home or self-care (01) ==
LOC: ER 21:48
DX: R10.9 Unspecified abdominal pain (principal); Z59.0 Homelessness; I10 Essential (primary) hypertension; Z88.6 Allergy status to analgesic agent
CPT/HCPCS: 36415; 71045; 74176; 80053; 80305; 80320; 81003; 81025; 83690; 84484; 85025; 85610; 96374; 96375; 99284; J2270; J2405; J7030; Z7610; G0480

== ENCOUNTER 2019-04-27 00:07 | Emergency (ER) | payer MEDICAID ==
[~2019-04-27] VITALS: Ht 167.6 cm; Wt 107.0 kg
[2019-04-27] MEDS ORDERED: ACETAMINOPHEN 325MG TABLET PO ONE (06:45)
[2019-04-27 06:55] LABS: CHLORIDE 108 mEq/L (98-107)
[2019-04-27 06:56] LABS: BASOPHILS % 0.9 % (0.0-2.0); EOSINOPHILS % 3.5 % (0.0-5.0); HEMATOCRIT. 30.6 % (36.0-48.0); HEMOGLOBIN. 9.5 g/dL (12.0-16.0); LYMPHOCYTES % 50.6 % (20.0-50.0); MEAN CORPUSCULAR HEMOGLOBIN 23.2 pg (28.0-32.0); MEAN CORPUSCULAR VOLUME 74.4 fL (81.0-99.0); MEAN PLATELET VOLUME 8.9 fl (7.4-10.4); MONOCYTES % 9.1 % (2.0-8.0); NEUTROPHILS % 35.9 % (40.0-76.0); PLATELET 241 x1000/uL (130-400); RED BLOOD CELL COUNT 4.11 mill/uL (4.2-5.4); RED CELL DISTRIBUTION WIDTH 19.5 % (11.6-14.6)
[2019-04-27 06:57] LABS: CLARITY URINE CLEAR (CLEAR); COLOR URINE YELLOW (YELLOW); KETONES URINE NEGATIVE (NEGATIVE); LEUKOCYTE ESTERASE URINE NEGATIVE (NEGATIVE); NITRITE URINE NEGATIVE (NEGATIVE); OCCULT BLOOD URINE NEGATIVE (NEGATIVE); PROTEIN URINE NEGATIVE (NEGATIVE); SPECIFIC GRAVITY URINE 1.019 (1.005-1.030); UROBILINOGEN URINE 0.2 E.U./dL (0.2-1.0)
[2019-04-27 07:00] LABS: ETHANOL BLOOD < 10 mg/dL
[2019-04-27 07:37] LABS: *AMPHETAMINES SCREEN URINE NEGATIVE (NEGATIVE); *BARBITURATES SCREEN URINE NEGATIVE (NEGATIVE); *BENZODIAZEPINES SCREEN URINE NEGATIVE (NEGATIVE)
[2019-04-27 07:38] LABS: METHADONE URINE SCREEN NEGATIVE (NEGATIVE); OPIATES URINE SCREEN NEGATIVE (NEGATIVE); PHENCYCLIDINE URINE SCREEN NEGATIVE (NEGATIVE)
[2019-04-27 07:39] LABS: CANNABINOID URINE SCREEN NEGATIVE (NEGATIVE)
[2019-04-27 07:41] LABS: *COCAINE SCREEN URINE PRESUMTIVE POSITIVE (NEGATIVE)
[2019-04-27 08:50] VITALS: BP 126/89
== END 2019-04-27 09:00 | disposition home or self-care (01) ==
LOC: ER 00:07
DX: R10.9 Unspecified abdominal pain (principal); Z88.6 Allergy status to analgesic agent
CPT/HCPCS: 36415; 80053; 80305; 80320; 81003; 81025; 83690; 85025; 93005; 99284; Z7610; G0480

== ENCOUNTER 2019-04-29 01:50 | Inpatient (IN) | payer MEDICAID ==
[~2019-04-29] VITALS: Ht 157.5 cm; Wt 73.9 kg
[2019-04-29] MEDS ORDERED: KETOROLAC 30MG/ML VIAL IV ONE (06:15)
[2019-04-29 07:12] LABS: BASOPHILS % 0.7 % (0.0-2.0); EOSINOPHILS % 4.1 % (0.0-5.0); HEMATOCRIT. 26.9 % (36.0-48.0); HEMOGLOBIN. 8.5 g/dL (12.0-16.0); LYMPHOCYTES % 52.6 % (20.0-50.0); MEAN CORPUSCULAR HEMOGLOBIN 23.2 pg (28.0-32.0); MEAN CORPUSCULAR VOLUME 73.3 fL (81.0-99.0); MEAN PLATELET VOLUME 7.9 fl (7.4-10.4); MONOCYTES % 8.2 % (2.0-8.0); NEUTROPHILS % 34.4 % (40.0-76.0); PLATELET 189 x1000/uL (130-400); RED BLOOD CELL COUNT 3.67 mill/uL (4.2-5.4); RED CELL DISTRIBUTION WIDTH 20.2 % (11.6-14.6)
[2019-04-29 07:15] LABS: CHLORIDE 110 mEq/L (98-107)
[2019-04-29] MEDS ORDERED: ASPIRIN 325MG EC TABLET PO ONE (08:15)
[2019-04-29] MEDS ORDERED: IPRATROPIUM/ALBUTEROL 0.5-3(2.5)MG/3ML NEB HHN PRN (09:45)
[2019-04-29] MEDS ORDERED: ACETAMINOPHEN 325MG TABLET PO PRN (09:45)
[2019-04-29] MEDS ORDERED: DOCUSATE SODIUM 100MG CAPSULE PO PRN (09:45)
[2019-04-29] MEDS ORDERED: CLONIDINE 0.1MG TABLET PO PRN (09:45)
[2019-04-29] MEDS ORDERED: MAGNESIUM/ALUMINUM HYDROXIDE/SIMETHICONE 30ML UDC PO PRN (09:45)
[2019-04-29] MEDS ORDERED: DIPHENHYDRAMINE 50MG/ML VIAL IV PRN (09:45)
[2019-04-29] MEDS ORDERED: ONDANSETRON HCL 4MG/2ML INJ IV PRN (09:45)
[2019-04-29] MEDS ORDERED: GUAIFENESIN 200MG/10ML SUGAR FREE UDC PO PRN (09:45)
[2019-04-29 10:00] VITALS: BP 119/53
[2019-04-29 11:04] VITALS: BP 119/53
[2019-04-29 11:32] LABS: PHOSPHORUS 3.4 mg/dL (2.5-4.9)
[2019-04-29 12:00] VITALS: BP 107/66
[2019-04-29 14:53] LABS: TOTAL IRON BINDING CAPACITY 342 ug/dL (250-450)
[2019-04-29] MEDS: KETOROLAC 30MG/ML VIAL IV PRN (15:46)
[2019-04-29 16:00] VITALS: BP 119/80
[2019-04-29 20:00] VITALS: BP 98/51
[2019-04-30] VITALS: BP 105/59
[2019-04-30 04:00] VITALS: BP 112/66
[2019-04-30] MEDS: KETOROLAC 30MG/ML VIAL IV PRN (04:38)
[2019-04-30 06:38] LABS: HEMATOCRIT. 29.4 % (36.0-48.0); HEMOGLOBIN. 9.2 g/dL (12.0-16.0); MEAN CORPUSCULAR HEMOGLOBIN 23.3 pg (28.0-32.0); MEAN PLATELET VOLUME 8.8 fl (7.4-10.4); PLATELET 179 x1000/uL (130-400); RED BLOOD CELL COUNT 3.97 mill/uL (4.2-5.4); RED CELL DISTRIBUTION WIDTH 20.8 % (11.6-14.6)
[2019-04-30 06:40] LABS: CHLORIDE 113 mEq/L (98-107)
[2019-04-30 06:48] LABS: LDL CHOLESTEROL 75 mg/dL (5-100)
[2019-04-30 06:50] LABS: HDL CHOLESTEROL 51 mg/dL (40-59)
[2019-04-30 08:25] VITALS: BP 130/88
[2019-04-30 12:00] VITALS: BP 118/94
[2019-04-30 14:39] VITALS: BP 122/74
[2019-04-30 14:57] LABS: PLATELET ESTIMATE NORMAL
== END 2019-04-30 15:30 | disposition home or self-care (01) | DRG 251 ==
LOC: ER 01:50 → 6WST 08:07 → ENRESERV 09:18
PROVIDERS: ADMIT Internal Medicine; ATTEND Internal Medicine
DX: R10.9 Unspecified abdominal pain (principal); E87.8 Other disorders of electrolyte and fluid balance, not elsewhere classified; E44.1 Mild protein-calorie malnutrition; D50.9 Iron deficiency anemia, unspecified; F14.10 Cocaine abuse, uncomplicated; F17.200 Nicotine dependence, unspecified, uncomplicated; R07.89 Other chest pain; I10 Essential (primary) hypertension; Z71.51 Drug abuse counseling and surveillance of drug abuser; Z79.899 Other long term (current) drug therapy; Z88.6 Allergy status to analgesic agent; Z98.891 History of uterine scar from previous surgery
CPT/HCPCS: 36415; 71045; 80061; 82728; 83540; 83550; 83735; 83880; 84100; 84443; 84484; 93005; 93970; 99285; J1885

== ENCOUNTER 2019-05-05 01:19 | Emergency (ER) | payer MEDICAID ==
[~2019-05-05] VITALS: Ht 165.1 cm; Wt 100.0 kg
[2019-05-05 01:23] VITALS: BP 150/82
== END 2019-05-05 01:54 | disposition left against medical advice (07) ==
LOC: ER 01:19
DX: R11.2 Nausea with vomiting, unspecified (principal); R10.9 Unspecified abdominal pain; Z87.19 Personal history of other diseases of the digestive system; Z98.890 Other specified postprocedural states; Z88.5 Allergy status to narcotic agent
CPT/HCPCS: 99283

== ENCOUNTER 2019-05-12 00:36 | Emergency (ER) | payer MEDICAID ==
[~2019-05-12] VITALS: Ht 167.6 cm; Wt 82.0 kg
[2019-05-12] MEDS ORDERED: SODIUM CHLORIDE 0.9% 1,000 ML IV ONE (07:10)
[2019-05-12] MEDS ORDERED: METOCLOPRAMIDE HCL 10MG/2ML VIAL IV STA (07:10)
[2019-05-12 07:56] LABS: CLARITY URINE CLEAR (CLEAR); KETONES URINE NEGATIVE (NEGATIVE); LEUKOCYTE ESTERASE URINE NEGATIVE (NEGATIVE); NITRITE URINE NEGATIVE (NEGATIVE); OCCULT BLOOD URINE NEGATIVE (NEGATIVE); PH URINE 5.5 (4.5-8.0); PROTEIN URINE NEGATIVE (NEGATIVE); SPECIFIC GRAVITY URINE 1.033 (1.005-1.030); UROBILINOGEN URINE 0.2 E.U./dL (0.2-1.0)
[2019-05-12 08:00] LABS: COLOR URINE DARK YELLOW (YELLOW)
[2019-05-12 08:18] VITALS: BP 113/71
[2019-05-12 09:20] LABS: BASOPHILS % 0.7 % (0.0-2.0); EOSINOPHILS % 5.2 % (0.0-5.0); LYMPHOCYTES % 48.4 % (20.0-50.0); MEAN CORPUSCULAR HEMOGLOBIN 23.1 pg (28.0-32.0); MONOCYTES % 10.9 % (2.0-8.0); NEUTROPHILS % 34.8 % (40.0-76.0); PLATELET 169 x1000/uL (130-400); RED BLOOD CELL COUNT 3.91 mill/uL (4.2-5.4); RED CELL DISTRIBUTION WIDTH 20.1 % (11.6-14.6)
[2019-05-12 09:25] LABS: CHLORIDE 110 mEq/L (98-107)
== END 2019-05-12 10:00 | disposition left against medical advice (07) ==
LOC: ER 00:36
DX: R10.13 Epigastric pain (principal); R11.2 Nausea with vomiting, unspecified; F17.210 Nicotine dependence, cigarettes, uncomplicated; Z88.5 Allergy status to narcotic agent; Z87.19 Personal history of other diseases of the digestive system
CPT/HCPCS: 36415; 71045; 80053; 81003; 81025; 83690; 84484; 85025; 93005; 96361; 96374; 99284; 99406; J2765; J7030; Z7610; 99283

== ENCOUNTER 2019-06-11 00:42 | Inpatient (IN) | payer MEDICAID ==
[~2019-06-11] VITALS: Ht 165.1 cm; Wt 86.6 kg
[2019-06-11 06:04] LABS: HEMATOCRIT. 30.7 % (36.0-48.0); HEMOGLOBIN. 9.7 g/dL (12.0-16.0); MEAN CORPUSCULAR HEMOGLOBIN 23.1 pg (28.0-32.0); MEAN CORPUSCULAR VOLUME 72.8 fL (81.0-99.0); MEAN PLATELET VOLUME 8.1 fl (7.4-10.4); PLATELET 215 x1000/uL (130-400); RED BLOOD CELL COUNT 4.22 mill/uL (4.2-5.4); RED CELL DISTRIBUTION WIDTH 18.4 % (11.6-14.6)
[2019-06-11 06:10] LABS: CHLORIDE 110 mEq/L (98-107)
[2019-06-11 06:16] LABS: HCG SCREEN NEGATIVE
[2019-06-11 06:44] LABS: PLATELET ESTIMATE NORMAL
[2019-06-11] MEDS ORDERED: KETOROLAC 30MG/ML VIAL IV ONE (08:45)
[2019-06-11] MEDS ORDERED: ONDANSETRON HCL 4MG/2ML INJ IV ONE (09:00)
[2019-06-11 09:23] LABS: CLARITY URINE CLOUDY (CLEAR); COLOR URINE ORANGE (YELLOW); KETONES URINE TRACE (NEGATIVE); LEUKOCYTE ESTERASE URINE NEGATIVE (NEGATIVE); NITRITE URINE NEGATIVE (NEGATIVE); OCCULT BLOOD URINE 3+ (NEGATIVE); PH URINE 5.5 (4.5-8.0); PROTEIN URINE 1+ (NEGATIVE); SPECIFIC GRAVITY URINE 1.024 (1.005-1.030); UROBILINOGEN URINE 0.2 E.U./dL (0.2-1.0)
[2019-06-11] MEDS ORDERED: ACETAMINOPHEN 325MG TABLET PO PRN (16:45)
[2019-06-11] MEDS ORDERED: MORPHINE SULFATE 2 MG/ML CPJ (NOT FOR IM USE) IV PRN (16:45)
[2019-06-11] MEDS ORDERED: IPRATROPIUM/ALBUTEROL 0.5-3(2.5)MG/3ML NEB HHN PRN (16:45)
[2019-06-11] MEDS ORDERED: CLONIDINE 0.1MG TABLET PO PRN (16:45)
[2019-06-11] MEDS ORDERED: DOCUSATE SODIUM 100MG CAPSULE PO PRN (16:45)
[2019-06-11] MEDS ORDERED: ONDANSETRON HCL 4MG/2ML INJ IV PRN (16:45)
[2019-06-11] MEDS ORDERED: LORAZEPAM 0.5MG TABLET PO PRN (16:45)
[2019-06-11] MEDS: HYDROCODONE/ACETAMINOPHEN 5/325MG TABLET PO PRN ×2 (18:54→18:55)
[2019-06-11 19:57] VITALS: BP 129/81
[2019-06-11 20:00] VITALS: BP 114/45
[2019-06-11] MEDS: CHLORDIAZEPOXIDE 25MG CAPSULE PO SCH ×2 (21:21→21:29)
[2019-06-12] VITALS: BP 123/82
[2019-06-12 04:00] VITALS: BP 115/84
[2019-06-12] MEDS: CHLORDIAZEPOXIDE 25MG CAPSULE PO SCH (06:00)
[2019-06-12 07:03] LABS: HEMATOCRIT. 31.8 % (36.0-48.0); HEMOGLOBIN. 10.2 g/dL (12.0-16.0); MEAN CORPUSCULAR HEMOGLOBIN 23.6 pg (28.0-32.0); MEAN CORPUSCULAR VOLUME 73.3 fL (81.0-99.0); RED BLOOD CELL COUNT 4.34 mill/uL (4.2-5.4); RED CELL DISTRIBUTION WIDTH 18.6 % (11.6-14.6)
[2019-06-12 07:04] LABS: CHLORIDE 110 mEq/L (98-107)
[2019-06-12 08:00] VITALS: BP 122/82
[2019-06-12 10:56] LABS: PLATELET 191 x1000/uL (130-400)
[2019-06-12 12:00] VITALS: BP 120/86
== END 2019-06-12 13:10 | disposition left against medical advice (07) | DRG 203 ==
LOC: ER 00:42 → 5WST 10:06 → EDBEDREQ 10:12 → ENRESERV 13:58
PROVIDERS: ADMIT Internal Medicine; ATTEND Internal Medicine
DX: M94.0 Chondrocostal junction syndrome [Tietze] (principal); D50.9 Iron deficiency anemia, unspecified; D72.821 Monocytosis (symptomatic); F10.20 Alcohol dependence, uncomplicated; F14.90 Cocaine use, unspecified, uncomplicated; F17.210 Nicotine dependence, cigarettes, uncomplicated; I10 Essential (primary) hypertension; J44.9 Chronic obstructive pulmonary disease, unspecified; R31.9 Hematuria, unspecified; Z59.0 Homelessness; Z97.5 Presence of (intrauterine) contraceptive device; Z88.5 Allergy status to narcotic agent
CPT/HCPCS: 36415; 71045; 74176; 80048; 80053; 81003; 84484; 84703; 85025; 93005; 99285; J1885; J2405

== ENCOUNTER 2019-07-07 20:12 | Emergency (ER) | payer MEDICAID ==
[~2019-07-07] VITALS: Ht 167.6 cm; Wt 91.0 kg
[2019-07-08] MEDS ORDERED: IBUPROFEN 600MG TABLET PO STA (01:08)
[2019-07-08 01:36] LABS: HEMATOCRIT. 30.4 % (36.0-48.0); HEMOGLOBIN. 9.6 g/dL (12.0-16.0); MEAN CORPUSCULAR HEMOGLOBIN 23.5 pg (28.0-32.0); PLATELET 239 x1000/uL (130-400); RED BLOOD CELL COUNT 4.11 mill/uL (4.2-5.4); RED CELL DISTRIBUTION WIDTH 18.8 % (11.6-14.6)
[2019-07-08 01:41] LABS: CHLORIDE 111 mEq/L (98-107)
[2019-07-08 01:45] LABS: ETHANOL BLOOD < 10 mg/dL
[2019-07-08 05:48] LABS: ATYPICAL LYMPHOCYTES 1
[2019-07-08 05:49] LABS: PLATELET ESTIMATE NORMAL
[2019-07-08 08:00] VITALS: BP 117/71
== END 2019-07-08 08:14 | disposition home or self-care (01) ==
LOC: ER 20:12
DX: R07.89 Other chest pain (principal); F14.10 Cocaine abuse, uncomplicated; F17.210 Nicotine dependence, cigarettes, uncomplicated; Z59.0 Homelessness; Z88.6 Allergy status to analgesic agent; Z87.19 Personal history of other diseases of the digestive system
CPT/HCPCS: 36415; 71045; 80053; 80320; 83690; 84484; 85025; 93005; 99284; Z7610; G0480

== ENCOUNTER 2019-07-22 19:31 | Emergency (ER) | payer MEDICAID ==
[~2019-07-22] VITALS: Ht 170.2 cm; Wt 77.0 kg
[2019-07-22] MEDS ORDERED: ACETAMINOPHEN 325MG TABLET PO STA (22:55)
[2019-07-23 00:05] LABS: BASOPHILS % 1.2 % (0.0-2.0); EOSINOPHILS % 3.7 % (0.0-5.0); HEMATOCRIT. 29.9 % (36.0-48.0); HEMOGLOBIN. 9.6 g/dL (12.0-16.0); LYMPHOCYTES % 55.5 % (20.0-50.0); MEAN CORPUSCULAR HEMOGLOBIN 23.6 pg (28.0-32.0); MEAN CORPUSCULAR VOLUME 73.4 fL (81.0-99.0); MEAN PLATELET VOLUME 7.6 fl (7.4-10.4); MONOCYTES % 9.7 % (2.0-8.0); NEUTROPHILS % 29.9 % (40.0-76.0); PLATELET 204 x1000/uL (130-400); RED BLOOD CELL COUNT 4.07 mill/uL (4.2-5.4)
[2019-07-23] MEDS ORDERED: KETOROLAC 60MG/2ML VIAL IM ONE (00:15)
[2019-07-23 00:21] LABS: CHLORIDE 108 mEq/L (98-107)
[2019-07-23 00:26] LABS: ETHANOL BLOOD < 10 mg/dL
[2019-07-23 03:16] VITALS: BP 113/87
== END 2019-07-23 03:29 | disposition home or self-care (01) ==
LOC: ER 19:31
DX: R07.89 Other chest pain (principal); R10.13 Epigastric pain; I25.10 Atherosclerotic heart disease of native coronary artery without angina pectoris; I10 Essential (primary) hypertension; Z59.0 Homelessness
CPT/HCPCS: 36415; 71045; 80053; 80320; 83690; 84484; 85025; 93005; 96372; 99285; J1885; G0480

== ENCOUNTER → 2019-07-27 | Emergency (ER) | payer MEDICAID ==
[~2019-07-27] VITALS: Ht 160 cm; Wt 90.0 kg
[2019-07-27 00:22] VITALS: BP 119/51
== END | disposition home or self-care (01) ==
LOC: ER 00:10
DX: R07.9 Chest pain, unspecified (principal); Z53.21 Procedure and treatment not carried out due to patient leaving prior to being seen by health care provider
CPT/HCPCS: 93005; 99283

== ENCOUNTER 2019-08-04 00:22 | Emergency (ER) | payer MEDICAID ==
[~2019-08-04] VITALS: Ht 165.1 cm; Wt 81.0 kg
[2019-08-04 00:27] VITALS: BP 132/84
== END 2019-08-04 00:58 | disposition left against medical advice (07) ==
LOC: ER 00:22
DX: R07.9 Chest pain, unspecified (principal); Z53.21 Procedure and treatment not carried out due to patient leaving prior to being seen by health care provider

== ENCOUNTER 2019-08-07 00:45 | Emergency (ER) | payer MEDICAID ==
[~2019-08-07] VITALS: Ht 160 cm; Wt 91.0 kg
[2019-08-07 04:45] LABS: BASOPHILS % 1.1 % (0.0-2.0); EOSINOPHILS % 3.8 % (0.0-5.0); HEMATOCRIT. 28.5 % (36.0-48.0); HEMOGLOBIN. 9.1 g/dL (12.0-16.0); LYMPHOCYTES % 58.4 % (20.0-50.0); MEAN CORPUSCULAR HEMOGLOBIN 23.8 pg (28.0-32.0); MEAN CORPUSCULAR VOLUME 74.1 fL (81.0-99.0); MEAN PLATELET VOLUME 8.3 fl (7.4-10.4); MONOCYTES % 6.5 % (2.0-8.0); NEUTROPHILS % 30.2 % (40.0-76.0); PLATELET 238 x1000/uL (130-400); RED BLOOD CELL COUNT 3.85 mill/uL (4.2-5.4); RED CELL DISTRIBUTION WIDTH 17.9 % (11.6-14.6)
[2019-08-07 04:52] LABS: CHLORIDE 110 mEq/L (98-107)
[2019-08-07 04:56] LABS: ETHANOL BLOOD < 10 mg/dL
[2019-08-07 05:00] LABS: CREATINE KINASE 118 IU/L (26-192)
[2019-08-07] MEDS ORDERED: IBUPROFEN 600MG TABLET PO ONE (05:15)
[2019-08-07 05:42] LABS: *AMPHETAMINES SCREEN URINE NEGATIVE (NEGATIVE); *BARBITURATES SCREEN URINE NEGATIVE (NEGATIVE); *BENZODIAZEPINES SCREEN URINE NEGATIVE (NEGATIVE); METHADONE URINE SCREEN NEGATIVE (NEGATIVE)
[2019-08-07 05:43] LABS: CANNABINOID URINE SCREEN NEGATIVE (NEGATIVE); OPIATES URINE SCREEN NEGATIVE (NEGATIVE); PHENCYCLIDINE URINE SCREEN NEGATIVE (NEGATIVE)
[2019-08-07 05:48] LABS: *COCAINE SCREEN URINE PRESUMTIVE POSITIVE (NEGATIVE)
[2019-08-07 07:05] VITALS: BP 106/65
== END 2019-08-07 12:32 | disposition home or self-care (01) ==
LOC: ER 00:45
DX: R07.89 Other chest pain (principal); Z59.0 Homelessness
CPT/HCPCS: 36415; 71045; 80053; 80305; 80320; 80329; 81025; 82550; 83880; 84484; 85025; 93005; 99285; G0480

== ENCOUNTER 2019-08-08 20:55 | Emergency (ER) | payer MEDICAID ==
[~2019-08-08] VITALS: Ht 160 cm; Wt 90.0 kg
[2019-08-08] MEDS ORDERED: ASPIRIN 81MG TABLET PO ONE (22:45)
[2019-08-08 23:27] LABS: CHLORIDE 109 mEq/L (98-107)
[2019-08-08 23:36] LABS: BASOPHILS % 1.5 % (0.0-2.0); EOSINOPHILS % 3.2 % (0.0-5.0); HEMATOCRIT. 30.8 % (36.0-48.0); HEMOGLOBIN. 9.8 g/dL (12.0-16.0); LYMPHOCYTES % 55.4 % (20.0-50.0); MEAN CORPUSCULAR HEMOGLOBIN 23.6 pg (28.0-32.0); MEAN CORPUSCULAR VOLUME 74.3 fL (81.0-99.0); MEAN PLATELET VOLUME 7.8 fl (7.4-10.4); MONOCYTES % 8.4 % (2.0-8.0); NEUTROPHILS % 31.5 % (40.0-76.0); PLATELET 234 x1000/uL (130-400); RED BLOOD CELL COUNT 4.15 mill/uL (4.2-5.4)
[2019-08-09 03:25] VITALS: BP 119/71
== END 2019-08-09 03:39 | disposition home or self-care (01) ==
LOC: ER 20:55
DX: R07.89 Other chest pain (principal); D64.9 Anemia, unspecified; R10.9 Unspecified abdominal pain; R11.0 Nausea; I10 Essential (primary) hypertension; F17.200 Nicotine dependence, unspecified, uncomplicated; F15.10 Other stimulant abuse, uncomplicated; Z98.890 Other specified postprocedural states; Z87.19 Personal history of other diseases of the digestive system; Z88.6 Allergy status to analgesic agent
CPT/HCPCS: 36415; 71045; 80053; 83880; 84484; 85025; 93005; 99285

== ENCOUNTER 2019-08-16 02:02 | Emergency (ER) | payer MEDICAID ==
[~2019-08-16] VITALS: Ht 160 cm; Wt 132.0 kg
[2019-08-16] MEDS ORDERED: ASPIRIN 81MG TABLET PO ONE (03:00)
[2019-08-16 03:37] LABS: HEMATOCRIT. 29.9 % (36.0-48.0); HEMOGLOBIN. 9.8 g/dL (12.0-16.0); MEAN CORPUSCULAR HEMOGLOBIN 23.7 pg (28.0-32.0); MEAN CORPUSCULAR VOLUME 72.6 fL (81.0-99.0); MEAN PLATELET VOLUME 7.6 fl (7.4-10.4); PLATELET 205 x1000/uL (130-400); RED BLOOD CELL COUNT 4.12 mill/uL (4.2-5.4); RED CELL DISTRIBUTION WIDTH 17.5 % (11.6-14.6)
[2019-08-16 03:42] LABS: CHLORIDE 108 mEq/L (98-107)
[2019-08-16 03:59] LABS: ATYPICAL LYMPHOCYTES 2; PLATELET ESTIMATE NORMAL
[2019-08-16] MEDS ORDERED: ACETAMINOPHEN 325MG TABLET PO ONE (04:45)
[2019-08-16 09:30] VITALS: BP 128/76
== END 2019-08-16 11:00 | disposition home or self-care (01) ==
LOC: ER 02:34
DX: R07.89 Other chest pain (principal); I10 Essential (primary) hypertension; R11.0 Nausea; Z98.890 Other specified postprocedural states; Z87.19 Personal history of other diseases of the digestive system; Z59.0 Homelessness; Z88.6 Allergy status to analgesic agent
CPT/HCPCS: 36415; 71045; 80053; 83880; 84484; 85025; 93005; 99285; Z7610

== ENCOUNTER 2019-08-21 00:57 | Emergency (ER) | payer MEDICAID ==
[~2019-08-21] VITALS: Ht 167.6 cm; Wt 75.0 kg
[2019-08-21] MEDS ORDERED: FAMOTIDINE 20MG TABLET PO ONE (02:15)
[2019-08-21 02:40] LABS: CLARITY URINE CLEAR (CLEAR); COLOR URINE YELLOW (YELLOW); KETONES URINE NEGATIVE (NEGATIVE); LEUKOCYTE ESTERASE URINE NEGATIVE (NEGATIVE); NITRITE URINE NEGATIVE (NEGATIVE); OCCULT BLOOD URINE NEGATIVE (NEGATIVE); PH URINE 7.5 (4.5-8.0); PROTEIN URINE NEGATIVE (NEGATIVE); SPECIFIC GRAVITY URINE 1.024 (1.005-1.030)
[2019-08-21 03:41] LABS: CHLORIDE 113 mEq/L (98-107)
[2019-08-21 03:45] LABS: ETHANOL BLOOD < 10 mg/dL
[2019-08-21 03:48] LABS: HEMATOCRIT. 28.8 % (36.0-48.0); HEMOGLOBIN. 9.3 g/dL (12.0-16.0); MEAN CORPUSCULAR HEMOGLOBIN 23.7 pg (28.0-32.0); MEAN CORPUSCULAR VOLUME 73.9 fL (81.0-99.0); MEAN PLATELET VOLUME 7.8 fl (7.4-10.4); PLATELET 166 x1000/uL (130-400)
[2019-08-21 04:10] LABS: PLATELET ESTIMATE NORMAL
[2019-08-21] MEDS ORDERED: ACETAMINOPHEN 500MG TABLET PO ONE (04:15)
[2019-08-21 05:24] VITALS: BP 149/79
== END 2019-08-21 06:59 | disposition home or self-care (01) ==
LOC: ER 01:09
DX: R10.84 Generalized abdominal pain (principal); I10 Essential (primary) hypertension; Z59.0 Homelessness; Z88.6 Allergy status to analgesic agent
CPT/HCPCS: 36415; 80053; 80320; 81003; 85025; 99283; G0480

== ENCOUNTER 2019-08-29 22:57 | Emergency (ER) | payer MEDICAID ==
[~2019-08-29] VITALS: Ht 160 cm; Wt 91.0 kg
[2019-08-30] MEDS ORDERED: IBUPROFEN 600MG TABLET PO STA (00:39)
[2019-08-30 02:12] LABS: CLARITY URINE CLEAR (CLEAR); COLOR URINE YELLOW (YELLOW); KETONES URINE NEGATIVE (NEGATIVE); LEUKOCYTE ESTERASE URINE NEGATIVE (NEGATIVE); NITRITE URINE NEGATIVE (NEGATIVE); OCCULT BLOOD URINE 1+ (NEGATIVE); PH URINE 6.5 (4.5-8.0); PROTEIN URINE NEGATIVE (NEGATIVE); SPECIFIC GRAVITY URINE 1.009 (1.005-1.030); UROBILINOGEN URINE 0.2 E.U./dL (0.2-1.0)
[2019-08-30 02:15] VITALS: BP 121/73
== END 2019-08-30 05:41 | disposition home or self-care (01) ==
LOC: ER 22:57
DX: M94.0 Chondrocostal junction syndrome [Tietze] (principal); R30.0 Dysuria; F14.10 Cocaine abuse, uncomplicated; Z86.19 Personal history of other infectious and parasitic diseases; Z98.890 Other specified postprocedural states; Z88.6 Allergy status to analgesic agent
CPT/HCPCS: 81003; 81025; 93005; 99284

== ENCOUNTER 2019-09-04 23:17 | Emergency (ER) | payer MEDICAID ==
[~2019-09-04] VITALS: Ht 160 cm; Wt 90.0 kg
[2019-09-05 00:21] VITALS: BP 110/62
== END 2019-09-05 01:18 | disposition left against medical advice (07) ==
LOC: ER 23:17
DX: R10.30 Lower abdominal pain, unspecified (principal); I10 Essential (primary) hypertension; F14.10 Cocaine abuse, uncomplicated; Z87.19 Personal history of other diseases of the digestive system; Z98.890 Other specified postprocedural states; Z88.6 Allergy status to analgesic agent
CPT/HCPCS: 71045; 93005; 99283

== ENCOUNTER 2019-09-15 22:46 | Emergency (ER) | payer MEDICAID ==
[~2019-09-15] VITALS: Ht 160 cm; Wt 91.0 kg
[2019-09-16 05:00] VITALS: BP 106/59
== END 2019-09-16 05:10 | disposition home or self-care (01) ==
LOC: ER 22:46
DX: R07.89 Other chest pain (principal); R10.9 Unspecified abdominal pain; I10 Essential (primary) hypertension; F14.10 Cocaine abuse, uncomplicated; F17.210 Nicotine dependence, cigarettes, uncomplicated; Z98.890 Other specified postprocedural states; Z87.19 Personal history of other diseases of the digestive system; Z88.6 Allergy status to analgesic agent
CPT/HCPCS: 71045; 93005; 99285

== ENCOUNTER 2019-09-27 23:12 | Emergency (ER) | payer MEDICAID ==
[~2019-09-27] VITALS: Ht 160 cm; Wt 95.0 kg
[2019-09-27 23:17] VITALS: BP 133/95
== END 2019-09-28 01:25 | disposition left against medical advice (07) ==
LOC: ER 23:12
DX: Z53.21 Procedure and treatment not carried out due to patient leaving prior to being seen by health care provider (principal)

== ENCOUNTER 2019-09-29 10:41 | Emergency (ER) | payer MEDICAID ==
[~2019-09-29] VITALS: Ht 160 cm; Wt 91.0 kg
[2019-09-29 10:53] VITALS: BP 128/79
== END 2019-09-29 11:24 | disposition left against medical advice (07) ==
LOC: ER 11:09
DX: R10.9 Unspecified abdominal pain (principal); Z53.21 Procedure and treatment not carried out due to patient leaving prior to being seen by health care provider

== ENCOUNTER 2019-10-11 05:57 | Emergency (ER) | payer MEDICAID ==
[~2019-10-11] VITALS: Ht 160 cm; Wt 90.0 kg
[2019-10-11 06:07] VITALS: BP 123/80
[2019-10-11] MEDS ORDERED: ONDANSETRON 4MG ODT PO ONE (06:30)
[2019-10-11] MEDS ORDERED: KETOROLAC 30MG/ML VIAL IM ONE (06:30)
== END 2019-10-11 07:35 | disposition left against medical advice (07) ==
LOC: ER 06:48
DX: R10.13 Epigastric pain (principal); R11.2 Nausea with vomiting, unspecified; I10 Essential (primary) hypertension; F14.10 Cocaine abuse, uncomplicated; Z88.5 Allergy status to narcotic agent; Z98.890 Other specified postprocedural states
CPT/HCPCS: 96372; 99283; J1885; Q0162

== ENCOUNTER 2019-10-23 23:13 | Emergency (ER) | payer MEDICAID ==
[~2019-10-23] VITALS: Ht 160 cm; Wt 95.0 kg
[2019-10-24] MEDS ORDERED: METOCLOPRAMIDE HCL 10MG/2ML VIAL IV SCH (01:00)
[2019-10-24] MEDS ORDERED: MAGNESIUM/ALUMINUM HYDROXIDE/SIMETHICONE 30ML UDC PO SCH (01:00)
[2019-10-24] MEDS ORDERED: VISCOUS LIDOCAINE 2% 15 ML UDC PO SCH (01:00)
[2019-10-24 01:41] LABS: CHLORIDE 105 mEq/L (98-107)
[2019-10-24 01:45] LABS: ETHANOL BLOOD < 10 mg/dL
[2019-10-24 01:58] LABS: HEMATOCRIT. 34.7 % (36.0-48.0); HEMOGLOBIN. 10.9 g/dL (12.0-16.0); MEAN CORPUSCULAR HEMOGLOBIN 23.4 pg (28.0-32.0); MEAN PLATELET VOLUME 8.8 fl (7.4-10.4); PLATELET 240 x1000/uL (130-400); RED BLOOD CELL COUNT 4.68 mill/uL (4.2-5.4); RED CELL DISTRIBUTION WIDTH 18.1 % (11.6-14.6)
[2019-10-24 02:31] LABS: PLATELET ESTIMATE NORMAL
[2019-10-24 06:07] VITALS: BP 132/80
== END 2019-10-24 06:15 | disposition home or self-care (01) ==
LOC: ER 23:13
DX: R10.33 Periumbilical pain (principal); K52.9 Noninfective gastroenteritis and colitis, unspecified; G89.29 Other chronic pain; I10 Essential (primary) hypertension; F14.10 Cocaine abuse, uncomplicated; F12.10 Cannabis abuse, uncomplicated; F17.210 Nicotine dependence, cigarettes, uncomplicated; Z87.19 Personal history of other diseases of the digestive system; Z98.890 Other specified postprocedural states; Z88.6 Allergy status to analgesic agent
CPT/HCPCS: 36415; 80053; 80320; 83880; 84484; 85025; 93005; 99284; G0480

== ENCOUNTER 2019-10-30 21:13 | Emergency (ER) | payer MEDICAID ==
[~2019-10-30] VITALS: Ht 160 cm; Wt 90.7 kg
[2019-10-30 21:24] VITALS: BP 155/91
[2019-10-30 23:41] LABS: CHLORIDE 110 mEq/L (98-107)
[2019-10-30 23:42] LABS: HEMATOCRIT. 34.9 % (36.0-48.0); HEMOGLOBIN. 10.9 g/dL (12.0-16.0); MEAN CORPUSCULAR HEMOGLOBIN 23.9 pg (28.0-32.0); MEAN CORPUSCULAR VOLUME 76.9 fL (81.0-99.0); MEAN PLATELET VOLUME 8.1 fl (7.4-10.4); PLATELET 212 x1000/uL (130-400); RED BLOOD CELL COUNT 4.54 mill/uL (4.2-5.4); RED CELL DISTRIBUTION WIDTH 18.9 % (11.6-14.6)
[2019-10-30 23:47] LABS: ETHANOL BLOOD < 10 mg/dL
[2019-10-31 00:52] LABS: HCG SCREEN NEGATIVE
[2019-10-31 03:11] LABS: PLATELET ESTIMATE NORMAL
== END 2019-10-31 06:10 | disposition left against medical advice (07) ==
LOC: ER 21:13
DX: R07.89 Other chest pain (principal); R10.9 Unspecified abdominal pain; I10 Essential (primary) hypertension; F14.10 Cocaine abuse, uncomplicated; F12.10 Cannabis abuse, uncomplicated; Z98.890 Other specified postprocedural states; Z88.6 Allergy status to analgesic agent; Z87.19 Personal history of other diseases of the digestive system
CPT/HCPCS: 36415; 71045; 80053; 80320; 83880; 84484; 84703; 85025; 93005; 99285; G0480

== ENCOUNTER 2020-04-25 05:09 | Emergency (ER) | payer MEDICAID ==
[~2020-04-25] VITALS: Ht 160 cm; Wt 90.0 kg
[2020-04-25] MEDS ORDERED: ONDANSETRON HCL 4MG/2ML INJ IV STA ×2 (06:12→10:10)
[2020-04-25] MEDS ORDERED: FAMOTIDINE 20MG/2ML VIAL IV STA ×2 (06:12→10:10)
[2020-04-25] MEDS ORDERED: SODIUM CHLORIDE 0.9% 1,000 ML IV ONE (06:15)
[2020-04-25 08:36] LABS: CLARITY URINE CLEAR (CLEAR); COLOR URINE YELLOW (YELLOW); KETONES URINE NEGATIVE (NEGATIVE); LEUKOCYTE ESTERASE URINE NEGATIVE (NEGATIVE); NITRITE URINE NEGATIVE (NEGATIVE); OCCULT BLOOD URINE NEGATIVE (NEGATIVE); PH URINE 8.5 (4.5-8.0); PROTEIN URINE NEGATIVE (NEGATIVE); SPECIFIC GRAVITY URINE 1.014 (1.005-1.030); UROBILINOGEN URINE 0.2 E.U./dL (0.2-1.0)
[2020-04-25 08:49] LABS: *AMPHETAMINES SCREEN URINE NEGATIVE (NEGATIVE); *BARBITURATES SCREEN URINE NEGATIVE (NEGATIVE); *BENZODIAZEPINES SCREEN URINE NEGATIVE (NEGATIVE); METHADONE URINE SCREEN NEGATIVE (NEGATIVE); OPIATES URINE SCREEN NEGATIVE (NEGATIVE)
[2020-04-25 08:50] LABS: CANNABINOID URINE SCREEN NEGATIVE (NEGATIVE); PHENCYCLIDINE URINE SCREEN NEGATIVE (NEGATIVE)
[2020-04-25 08:56] LABS: *COCAINE SCREEN URINE PRESUMTIVE POSITIVE (NEGATIVE)
[2020-04-25 10:20] LABS: EOSINOPHILS % 5.9 % (0.0-5.0); HEMATOCRIT. 33.7 % (36.0-48.0); HEMOGLOBIN. 10.8 g/dL (12.0-16.0); LYMPHOCYTES % 47.1 % (20.0-50.0); MEAN CORPUSCULAR HEMOGLOBIN 25.8 pg (28.0-32.0); MEAN CORPUSCULAR VOLUME 80.9 fL (81.0-99.0); MEAN PLATELET VOLUME 8.2 fl (7.4-10.4); MONOCYTES % 8.7 % (2.0-8.0); NEUTROPHILS % 37.3 % (40.0-76.0); PLATELET 237 x1000/uL (130-400); RED BLOOD CELL COUNT 4.17 mill/uL (4.2-5.4); RED CELL DISTRIBUTION WIDTH 17.4 % (11.6-14.6)
[2020-04-25 10:22] LABS: CHLORIDE 110 mEq/L (98-107)
[2020-04-25 10:24] LABS: INR 0.9; PROTHROMBIN TIME 9.9 sec (9.6-11.0)
[2020-04-25 10:26] LABS: ETHANOL BLOOD < 10 mg/dL
[2020-04-25 10:59] LABS: HCG SCREEN NEGATIVE
[2020-04-25 12:08] VITALS: BP 128/76
== END 2020-04-25 12:12 | disposition home or self-care (01) ==
LOC: ER 06:32
DX: R10.13 Epigastric pain (principal); F19.10 Other psychoactive substance abuse, uncomplicated; I10 Essential (primary) hypertension; F17.200 Nicotine dependence, unspecified, uncomplicated; Z88.6 Allergy status to analgesic agent
CPT/HCPCS: 36415; 76700; 80053; 80305; 80320; 81003; 81025; 83690; 84703; 85025; 85610; 93005; 96361; 96374; 96375; 99285; J2405; J3490; J7030; G0480

== ENCOUNTER 2020-04-29 21:44 | Inpatient (IN) | payer MEDICAID ==
[~2020-04-29] VITALS: Ht 162.6 cm; Wt 90.7 kg
[2020-04-29] MEDS ORDERED: KETOROLAC 30MG/ML VIAL IV STA (22:55)
[2020-04-29] MEDS ORDERED: ONDANSETRON HCL 4MG/2ML INJ IV STA (22:55)
[2020-04-29] MEDS ORDERED: SODIUM CHLORIDE 0.9% 1,000 ML IV ONE (23:00)
[2020-04-30 01:01] LABS: CHLORIDE 108 mEq/L (98-107)
[2020-04-30 01:07] LABS: ETHANOL BLOOD < 10 mg/dL
[2020-04-30 01:08] LABS: BASOPHILS % 0.9 % (0.0-2.0); EOSINOPHILS % 5.3 % (0.0-5.0); HEMATOCRIT. 32.8 % (36.0-48.0); HEMOGLOBIN. 10.7 g/dL (12.0-16.0); LYMPHOCYTES % 53.3 % (20.0-50.0); MEAN CORPUSCULAR HEMOGLOBIN 26.4 pg (28.0-32.0); MEAN CORPUSCULAR VOLUME 81.1 fL (81.0-99.0); MEAN PLATELET VOLUME 8.2 fl (7.4-10.4); MONOCYTES % 8.8 % (2.0-8.0); NEUTROPHILS % 31.7 % (40.0-76.0); PLATELET 231 x1000/uL (130-400); RED BLOOD CELL COUNT 4.04 mill/uL (4.2-5.4); RED CELL DISTRIBUTION WIDTH 17.9 % (11.6-14.6)
[2020-04-30 01:11] LABS: CLARITY URINE CLEAR (CLEAR); COLOR URINE YELLOW (YELLOW); KETONES URINE NEGATIVE (NEGATIVE); LEUKOCYTE ESTERASE URINE NEGATIVE (NEGATIVE); NITRITE URINE NEGATIVE (NEGATIVE); OCCULT BLOOD URINE NEGATIVE (NEGATIVE); PROTEIN URINE NEGATIVE (NEGATIVE); SPECIFIC GRAVITY URINE 1.025 (1.005-1.030)
[2020-04-30 01:24] LABS: *AMPHETAMINES SCREEN URINE NEGATIVE (NEGATIVE); *BARBITURATES SCREEN URINE NEGATIVE (NEGATIVE); *BENZODIAZEPINES SCREEN URINE NEGATIVE (NEGATIVE)
[2020-04-30 01:25] LABS: CANNABINOID URINE SCREEN NEGATIVE (NEGATIVE); METHADONE URINE SCREEN NEGATIVE (NEGATIVE); OPIATES URINE SCREEN NEGATIVE (NEGATIVE); PHENCYCLIDINE URINE SCREEN NEGATIVE (NEGATIVE)
[2020-04-30 01:39] LABS: HCG SCREEN NEGATIVE
[2020-04-30 01:47] LABS: *COCAINE SCREEN URINE PRESUMTIVE POSITIVE (NEGATIVE)
[2020-04-30 01:58] LABS: INR 0.9
[2020-04-30] MEDS ORDERED: ASPIRIN 81MG TABLET PO ONE (04:00)
[2020-04-30] MEDS ORDERED: IBUPROFEN 600MG TABLET PO PRN (04:45)
[2020-04-30 08:00] VITALS: BP 110/69
[2020-04-30] MEDS ORDERED: ACETAMINOPHEN 325MG TABLET PO PRN (11:00)
[2020-04-30] MEDS ORDERED: ONDANSETRON HCL 4MG/2ML INJ IV PRN (11:00)
[2020-04-30] MEDS ORDERED: THIAMINE HCL 100MG TABLET PO NR (11:00)
[2020-04-30] MEDS ORDERED: LACTULOSE 20G/30ML UDC PO PRN (11:15)
[2020-04-30 12:00] VITALS: BP 109/66
[2020-04-30] MEDS ORDERED: FAMOTIDINE 20MG TABLET PO SCH (21:00)
[2020-05-01] MEDS ORDERED: THIAMINE HCL 100MG TABLET PO SCH (09:00)
== END 2020-04-30 12:40 | disposition left against medical advice (07) | DRG 254 ==
LOC: ER 21:44 → 5WST 04-30 04:43 → ENRESERV 04-30 07:18
PROVIDERS: ADMIT Internal Medicine; ATTEND Internal Medicine
DX: K59.00 Constipation, unspecified (principal); E44.1 Mild protein-calorie malnutrition; E66.9 Obesity, unspecified; E87.8 Other disorders of electrolyte and fluid balance, not elsewhere classified; I10 Essential (primary) hypertension; F10.10 Alcohol abuse, uncomplicated; F14.90 Cocaine use, unspecified, uncomplicated; Z68.34 Body mass index [BMI] 34.0-34.9, adult; Z88.8 Allergy status to other drugs, medicaments and biological substances; Z98.891 History of uterine scar from previous surgery; Z71.41 Alcohol abuse counseling and surveillance of alcoholic; Z71.51 Drug abuse counseling and surveillance of drug abuser; D50.9 Iron deficiency anemia, unspecified
CPT/HCPCS: 36415; 71045; 74176; 80053; 80305; 80320; 81003; 84484; 84703; 85025; 93005; 99285; J1885; J2405; J7030; G0480

== ENCOUNTER 2020-05-12 22:11 | Emergency (ER) | payer MEDICAID ==
[~2020-05-12] VITALS: Ht 160 cm; Wt 91.0 kg
[2020-05-13] MEDS ORDERED: ASPIRIN 81MG TABLET PO ONE (01:00)
[2020-05-13] MEDS ORDERED: ONDANSETRON 4MG ODT PO ONE (01:00)
[2020-05-13] MEDS ORDERED: NITROGLYCERIN 0.4MG TABLET SL SL PRN (01:00)
[2020-05-13 01:37] LABS: BASOPHILS % 1.2 % (0.0-2.0); EOSINOPHILS % 4.7 % (0.0-5.0); HEMATOCRIT. 30.6 % (36.0-48.0); LYMPHOCYTES % 53.8 % (20.0-50.0); MEAN CORPUSCULAR HEMOGLOBIN 26.3 pg (28.0-32.0); MEAN CORPUSCULAR VOLUME 80.7 fL (81.0-99.0); MEAN PLATELET VOLUME 8.4 fl (7.4-10.4); MONOCYTES % 10.4 % (2.0-8.0); NEUTROPHILS % 29.9 % (40.0-76.0); PLATELET 159 x1000/uL (130-400); RED CELL DISTRIBUTION WIDTH 16.5 % (11.6-14.6)
[2020-05-13 01:45] LABS: CHLORIDE 110 mEq/L (98-107)
[2020-05-13 01:50] LABS: ETHANOL BLOOD < 10 mg/dL
[2020-05-13 02:39] VITALS: BP 102/67
== END 2020-05-13 02:53 | disposition home or self-care (01) ==
LOC: ER 22:11
DX: F14.10 Cocaine abuse, uncomplicated (principal); R11.2 Nausea with vomiting, unspecified; I10 Essential (primary) hypertension; F12.10 Cannabis abuse, uncomplicated; Z98.890 Other specified postprocedural states
CPT/HCPCS: 36415; 71045; 80053; 80320; 83880; 84484; 85025; 93005; 99285; Q0162; Z7610; G0480

== ENCOUNTER 2020-05-22 02:22 | Emergency (ER) | payer MEDICAID ==
[~2020-05-22] VITALS: Ht 157.5 cm; Wt 91.0 kg
[2020-05-22 05:13] VITALS: BP 121/91
== END 2020-05-22 08:20 | disposition left against medical advice (07) ==
LOC: ER 02:22
DX: Z53.21 Procedure and treatment not carried out due to patient leaving prior to being seen by health care provider (principal)

== ENCOUNTER 2020-06-02 00:36 | Emergency (ER) | payer MEDICAID ==
[~2020-06-02] VITALS: Ht 167.6 cm; Wt 90.0 kg
[2020-06-02] MEDS ORDERED: ACETAMINOPHEN 325MG TABLET PO ONE (02:15)
[2020-06-02] MEDS: BISMUTH SUBSALICYLATE 262 MG/15 ML-120ML BOTTLE PO ONE ×2 (02:42→02:47)
[2020-06-02 05:40] VITALS: BP 130/73
== END 2020-06-02 06:28 | disposition home or self-care (01) ==
LOC: ER 00:36
DX: R19.7 Diarrhea, unspecified (principal); I10 Essential (primary) hypertension; F17.200 Nicotine dependence, unspecified, uncomplicated; F12.10 Cannabis abuse, uncomplicated; F14.10 Cocaine abuse, uncomplicated; Z20.828 Contact with and (suspected) exposure to other viral communicable diseases; Z88.5 Allergy status to narcotic agent
CPT/HCPCS: 99282

== ENCOUNTER 2020-06-10 18:35 | Emergency (ER) | payer MEDICAID ==
[~2020-06-10] VITALS: Ht 165.1 cm; Wt 90.0 kg
[2020-06-10] MEDS ORDERED: ACETAMINOPHEN 325MG TABLET PO STA (19:36)
[2020-06-10] MEDS ORDERED: KETOROLAC 30MG/ML VIAL IV STA (19:36)
[2020-06-10] MEDS ORDERED: SODIUM CHLORIDE 0.9% 1000ML BAG (SEPSIS BOLUS) IV ONE (19:45)
[2020-06-10 21:25] LABS: HEMATOCRIT. 32.6 % (36.0-48.0); HEMOGLOBIN. 10.5 g/dL (12.0-16.0); MEAN CORPUSCULAR HEMOGLOBIN 26.3 pg (28.0-32.0); MEAN CORPUSCULAR VOLUME 81.2 fL (81.0-99.0); MEAN PLATELET VOLUME 8.8 fl (7.4-10.4); PLATELET 183 x1000/uL (130-400); RED BLOOD CELL COUNT 4.02 mill/uL (4.2-5.4); RED CELL DISTRIBUTION WIDTH 16.6 % (11.6-14.6)
[2020-06-10 21:31] LABS: CHLORIDE 107 mEq/L (98-107)
[2020-06-10 21:33] LABS: HCG SCREEN NEGATIVE
[2020-06-10 21:34] LABS: PROTHROMBIN TIME 10.3 sec (9.6-11.0)
[2020-06-10 21:35] LABS: ETHANOL BLOOD < 10 mg/dL
[2020-06-10 22:17] LABS: PLATELET ESTIMATE NORMAL
[2020-06-11 00:38] VITALS: BP 122/80
[2020-06-11 03:32] LABS: CLARITY URINE CLEAR (CLEAR); COLOR URINE YELLOW (YELLOW); KETONES URINE NEGATIVE (NEGATIVE); LEUKOCYTE ESTERASE URINE NEGATIVE (NEGATIVE); NITRITE URINE NEGATIVE (NEGATIVE); OCCULT BLOOD URINE NEGATIVE (NEGATIVE); PH URINE 5.5 (4.5-8.0); PROTEIN URINE NEGATIVE (NEGATIVE); SPECIFIC GRAVITY URINE 1.032 (1.005-1.030)
[2020-06-11 03:44] LABS: *AMPHETAMINES SCREEN URINE NEGATIVE (NEGATIVE); *BARBITURATES SCREEN URINE NEGATIVE (NEGATIVE); *BENZODIAZEPINES SCREEN URINE NEGATIVE (NEGATIVE); CANNABINOID URINE SCREEN NEGATIVE (NEGATIVE); METHADONE URINE SCREEN NEGATIVE (NEGATIVE); OPIATES URINE SCREEN NEGATIVE (NEGATIVE); PHENCYCLIDINE URINE SCREEN NEGATIVE (NEGATIVE)
[2020-06-11 04:01] LABS: *COCAINE SCREEN URINE PRESUMTIVE POSITIVE (NEGATIVE)
== END 2020-06-11 04:30 | disposition home or self-care (01) ==
LOC: ER 18:43
DX: R10.13 Epigastric pain (principal); R07.89 Other chest pain; R50.9 Fever, unspecified; I10 Essential (primary) hypertension; F17.210 Nicotine dependence, cigarettes, uncomplicated; F14.10 Cocaine abuse, uncomplicated; F12.10 Cannabis abuse, uncomplicated; Z59.0 Homelessness; Z88.5 Allergy status to narcotic agent
CPT/HCPCS: 36415; 71045; 74176; 80053; 80305; 80320; 81003; 83605; 83690; 83880; 84145; 84484; 84703; 85025; 85610; 87040; 87086; 93005; 96361; 96374; 99285; J1885; J7030; G0480

== ENCOUNTER 2020-06-23 19:41 | Emergency (ER) | payer MEDICAID ==
[~2020-06-23] VITALS: Ht 157.5 cm; Wt 90.7 kg
[2020-06-23] MEDS ORDERED: TRAMADOL 50MG TABLET PO ONE (21:30)
[2020-06-23] MEDS ORDERED: IBUPROFEN 600MG TABLET PO ONE (21:30)
[2020-06-23 22:35] VITALS: BP 110/67
== END 2020-06-23 22:43 | disposition home or self-care (01) ==
LOC: ER 19:41
DX: S80.12XA Contusion of left lower leg, initial encounter (principal); V43.92XA Unspecified car occupant injured in collision with other type car in traffic accident, initial encounter; Y93.89 Activity, other specified; Y92.89 Other specified places as the place of occurrence of the external cause; Y99.8 Other external cause status
CPT/HCPCS: 99283

== ENCOUNTER 2020-07-12 20:03 | Emergency (ER) | payer MEDICAID ==
[~2020-07-12] VITALS: Ht 165.1 cm; Wt 74.0 kg
[2020-07-12 20:30] VITALS: BP 125/88
[2020-07-12] MEDS ORDERED: HALOPERIDOL LACTATE 5MG/ML VIAL IM ONE (20:45)
[2020-07-12] MEDS ORDERED: SODIUM CHLORIDE 0.9% 500 ML IV ONE (20:45)
[2020-07-12 23:25] LABS: CHLORIDE 108 mEq/L (98-107)
[2020-07-12 23:26] LABS: BASOPHILS % 1.3 % (0.0-2.0); EOSINOPHILS % 5.9 % (0.0-5.0); HEMATOCRIT. 32.4 % (36.0-48.0); HEMOGLOBIN. 10.4 g/dL (12.0-16.0); MEAN CORPUSCULAR HEMOGLOBIN 25.7 pg (28.0-32.0); MEAN CORPUSCULAR VOLUME 80.3 fL (81.0-99.0); MEAN PLATELET VOLUME 8.2 fl (7.4-10.4); MONOCYTES % 9.1 % (2.0-8.0); NEUTROPHILS % 19.7 % (40.0-76.0); PLATELET 153 x1000/uL (130-400); RED BLOOD CELL COUNT 4.03 mill/uL (4.2-5.4); RED CELL DISTRIBUTION WIDTH 15.7 % (11.6-14.6)
[2020-07-12 23:30] LABS: ETHANOL BLOOD < 10 mg/dL
== END 2020-07-13 00:15 | disposition left against medical advice (07) ==
LOC: ER 20:03
DX: R10.12 Left upper quadrant pain (principal); I10 Essential (primary) hypertension; I25.10 Atherosclerotic heart disease of native coronary artery without angina pectoris; F14.10 Cocaine abuse, uncomplicated; F12.10 Cannabis abuse, uncomplicated; Z88.5 Allergy status to narcotic agent
CPT/HCPCS: 36415; 71045; 80053; 80320; 83605; 83690; 84484; 85025; 85610; 93005; 96360; 96372; 99285; J1630; J7040; G0480

== ENCOUNTER 2020-08-07 20:38 | Emergency (ER) | payer MEDICAID ==
[~2020-08-07] VITALS: Ht 160 cm; Wt 88.0 kg
[2020-08-07] MEDS ORDERED: ASPIRIN 81MG TABLET PO ONE (23:00)
[2020-08-07 23:44] LABS: BASOPHILS % 1.2 % (0.0-2.0); EOSINOPHILS % 5.4 % (0.0-5.0); HEMATOCRIT. 28.6 % (36.0-48.0); HEMOGLOBIN. 9.3 g/dL (12.0-16.0); LYMPHOCYTES % 48.8 % (20.0-50.0); MEAN CORPUSCULAR HEMOGLOBIN 26.4 pg (28.0-32.0); MEAN CORPUSCULAR VOLUME 80.9 fL (81.0-99.0); MEAN PLATELET VOLUME 8.3 fl (7.4-10.4); MONOCYTES % 11.2 % (2.0-8.0); NEUTROPHILS % 33.4 % (40.0-76.0); PLATELET 150 x1000/uL (130-400); RED BLOOD CELL COUNT 3.54 mill/uL (4.2-5.4); RED CELL DISTRIBUTION WIDTH 16.9 % (11.6-14.6)
[2020-08-07 23:53] LABS: CHLORIDE 112 mEq/L (98-107)
[2020-08-07 23:58] LABS: ETHANOL BLOOD < 10 mg/dL
[2020-08-08] MEDS ORDERED: AZIT500T8 MT (00:37)
[2020-08-08] MEDS ORDERED: AZITHROMYCIN 500 MG TABLET PO NR (01:00)
[2020-08-08 04:39] VITALS: BP 114/84
== END 2020-08-08 04:45 | disposition home or self-care (01) ==
LOC: ER 20:38
DX: J18.9 Pneumonia, unspecified organism (principal); F14.10 Cocaine abuse, uncomplicated; I10 Essential (primary) hypertension; Z88.6 Allergy status to analgesic agent
CPT/HCPCS: 36415; 71045; 80053; 80320; 83690; 83880; 84484; 85025; 93005; 99285; Z7610; G0480

== ENCOUNTER 2020-09-07 15:01 | Emergency (ER) | payer MEDICAID ==
[~2020-09-07] VITALS: Ht 160 cm; Wt 100.0 kg
[~2020-09-07 15:01] MED LIST changes: -ASPI-1158 PO; +AZIT500T8 MT; -DIPH25CA83 PO; -QUET400T PO
[2020-09-07] MEDS ORDERED: ONDANSETRON 4MG ODT PO ONE (23:15)
[2020-09-07] MEDS ORDERED: IBUPROFEN 400MG TABLET PO ONE (23:15)
[2020-09-08 01:33] LABS: BASOPHILS % 1.7 % (0.0-2.0); EOSINOPHILS % 5.4 % (0.0-5.0); HEMATOCRIT. 31.4 % (36.0-48.0); HEMOGLOBIN. 10.4 g/dL (12.0-16.0); LYMPHOCYTES % 20.3 % (20.0-50.0); MEAN CORPUSCULAR HEMOGLOBIN 26.8 pg (28.0-32.0); MEAN CORPUSCULAR VOLUME 81.2 fL (81.0-99.0); MEAN PLATELET VOLUME 8.2 fl (7.4-10.4); NEUTROPHILS % 65.6 % (40.0-76.0); PLATELET 173 x1000/uL (130-400); RED BLOOD CELL COUNT 3.87 mill/uL (4.2-5.4); RED CELL DISTRIBUTION WIDTH 17.6 % (11.6-14.6)
[2020-09-08 01:38] LABS: CHLORIDE 110 mEq/L (98-107)
[2020-09-08] MEDS ORDERED: ONDA4TAB5 MT (02:36)
[2020-09-08] MEDS ORDERED: IBUP-2028 MT (02:36)
[2020-09-08 03:05] VITALS: BP 123/68
== END 2020-09-08 03:24 | disposition home or self-care (01) ==
LOC: ER 15:01
DX: R07.89 Other chest pain (principal); R11.2 Nausea with vomiting, unspecified; R10.13 Epigastric pain; F12.10 Cannabis abuse, uncomplicated; I10 Essential (primary) hypertension
CPT/HCPCS: 36415; 71045; 80053; 83690; 83880; 84484; 85025; 93005; 99285; Q0162

== ENCOUNTER 2020-10-04 14:16 | Emergency (ER) | payer MEDICAID ==
[~2020-10-04] VITALS: Ht 160 cm; Wt 91.0 kg
[~2020-10-04 14:16] MED LIST changes: +IBUP-2028 MT; +ONDA4TAB5 MT
[2020-10-04] MEDS ORDERED: ASPIRIN 81MG TABLET PO ONE (14:45)
[2020-10-04 16:14] LABS: BASOPHILS % 0.5 % (0.0-2.0); EOSINOPHILS % 3.6 % (0.0-5.0); HEMATOCRIT. 31.6 % (36.0-48.0); HEMOGLOBIN. 10.3 g/dL (12.0-16.0); LYMPHOCYTES % 23.9 % (20.0-50.0); MEAN CORPUSCULAR HEMOGLOBIN 26.4 pg (28.0-32.0); MEAN PLATELET VOLUME 8.4 fl (7.4-10.4); MONOCYTES % 6.7 % (2.0-8.0); NEUTROPHILS % 65.3 % (40.0-76.0); PLATELET 191 x1000/uL (130-400)
[2020-10-04 16:18] LABS: CHLORIDE 109 mEq/L (98-107)
[2020-10-04] MEDS ORDERED: CLOTRIMAZOLE 1% VAGINAL CREAM 45GM VG NR (17:00)
[2020-10-04 18:16] LABS: CLARITY URINE CLEAR (CLEAR); COLOR URINE YELLOW (YELLOW); KETONES URINE NEGATIVE (NEGATIVE); LEUKOCYTE ESTERASE URINE NEGATIVE (NEGATIVE); NITRITE URINE NEGATIVE (NEGATIVE); OCCULT BLOOD URINE TRACE (NEGATIVE); PH URINE 6.5 (4.5-8.0); PROTEIN URINE NEGATIVE (NEGATIVE); SPECIFIC GRAVITY URINE 1.028 (1.005-1.030); UROBILINOGEN URINE 0.2 E.U./dL (0.2-1.0)
[2020-10-04] MEDS ORDERED: CLOT15CR27 TP (18:41)
[2020-10-04 19:12] VITALS: BP 121/74
[2020-10-04] MEDS ORDERED: CLOTRIMAZOLE 1% CREAM 30GM TOP SCH (21:00)
== END 2020-10-04 19:19 | disposition home or self-care (01) ==
LOC: ER 14:16
DX: B35.6 Tinea cruris (principal); R10.30 Lower abdominal pain, unspecified; R21 Rash and other nonspecific skin eruption; R06.02 Shortness of breath; I25.10 Atherosclerotic heart disease of native coronary artery without angina pectoris; I10 Essential (primary) hypertension; Z98.890 Other specified postprocedural states; Z79.899 Other long term (current) drug therapy
CPT/HCPCS: 36415; 71045; 80053; 81003; 83880; 84484; 85025; 93005; 99285; Z7610

== ENCOUNTER 2020-11-18 21:26 | Emergency (ER) | payer MEDICAID ==
[~2020-11-18] VITALS: Ht 157.5 cm; Wt 91.0 kg
[~2020-11-18 21:26] MED LIST changes: +CLOT15CR27 TP
[2020-11-19 01:29] LABS: CHLORIDE 109 mEq/L (98-107)
[2020-11-19 01:36] LABS: BASOPHILS % 0.9 % (0.0-2.0); EOSINOPHILS % 4.7 % (0.0-5.0); HEMATOCRIT. 35.2 % (36.0-48.0); HEMOGLOBIN. 11.1 g/dL (12.0-16.0); LYMPHOCYTES % 42.6 % (20.0-50.0); MEAN CORPUSCULAR HEMOGLOBIN 26.2 pg (28.0-32.0); MEAN CORPUSCULAR VOLUME 82.7 fL (81.0-99.0); MEAN PLATELET VOLUME 8.7 fl (7.4-10.4); MONOCYTES % 9.1 % (2.0-8.0); NEUTROPHILS % 42.7 % (40.0-76.0); PLATELET 202 x1000/uL (130-400); RED BLOOD CELL COUNT 4.25 mill/uL (4.2-5.4); RED CELL DISTRIBUTION WIDTH 15.9 % (11.6-14.6)
[2020-11-19 01:50] LABS: HCG SCREEN NEGATIVE
[2020-11-19 02:15] VITALS: BP 145/88
== END 2020-11-19 02:10 | disposition home or self-care (01) ==
LOC: ER 21:26
DX: B34.9 Viral infection, unspecified (principal); I10 Essential (primary) hypertension; I25.10 Atherosclerotic heart disease of native coronary artery without angina pectoris; Z88.6 Allergy status to analgesic agent; Z98.890 Other specified postprocedural states
CPT/HCPCS: 36415; 71045; 80053; 83690; 84484; 84703; 85025; 93005; 99285; Z7610

== ENCOUNTER 2021-01-03 18:00 | Inpatient (IN) | payer MEDICAID ==
[~2021-01-03] VITALS: Ht 160 cm; Wt 68.5 kg
[~2021-01-03 18:00] MED LIST changes: +DOXY100C42 MT; +NITR100C MT
[2021-01-03] MEDS ORDERED: ONDANSETRON HCL 4MG/2ML INJ IV STA (23:12)
[2021-01-03] MEDS ORDERED: KETOROLAC 15MG/ML VIAL IV ONE (23:15)
[2021-01-03] MEDS ORDERED: SODIUM CHLORIDE 0.9% 1,000 ML IV ONE (23:15)
[2021-01-04 00:24] LABS: BASOPHILS % 1.2 % (0.0-2.0); EOSINOPHILS % 4.2 % (0.0-5.0); HEMATOCRIT. 34.2 % (36.0-48.0); HEMOGLOBIN. 11.3 g/dL (12.0-16.0); LYMPHOCYTES % 57.7 % (20.0-50.0); MEAN CORPUSCULAR HEMOGLOBIN 27.4 pg (28.0-32.0); MEAN PLATELET VOLUME 8.3 fl (7.4-10.4); MONOCYTES % 9.1 % (2.0-8.0); NEUTROPHILS % 27.8 % (40.0-76.0); PLATELET 171 x1000/uL (130-400); RED BLOOD CELL COUNT 4.11 mill/uL (4.2-5.4); RED CELL DISTRIBUTION WIDTH 15.4 % (11.6-14.6)
[2021-01-04 00:27] LABS: CHLORIDE 111 mEq/L (98-107)
[2021-01-04 00:31] LABS: ETHANOL BLOOD < 10 mg/dL
[2021-01-04 00:42] LABS: HCG SCREEN NEGATIVE
[2021-01-04] MEDS ORDERED: ASPIRIN 325MG EC TABLET PO ONE (02:15)
[2021-01-04 05:10] LABS: CLARITY URINE CLEAR (CLEAR); COLOR URINE YELLOW (YELLOW); KETONES URINE NEGATIVE (NEGATIVE); LEUKOCYTE ESTERASE URINE NEGATIVE (NEGATIVE); NITRITE URINE NEGATIVE (NEGATIVE); OCCULT BLOOD URINE NEGATIVE (NEGATIVE); PH URINE 6.5 (4.5-8.0); PROTEIN URINE NEGATIVE (NEGATIVE); SPECIFIC GRAVITY URINE 1.012 (1.005-1.030); UROBILINOGEN URINE 0.2 E.U./dL (0.2-1.0)
[2021-01-04 05:26] LABS: *AMPHETAMINES SCREEN URINE NEGATIVE (NEGATIVE); *BARBITURATES SCREEN URINE NEGATIVE (NEGATIVE); *BENZODIAZEPINES SCREEN URINE NEGATIVE (NEGATIVE)
[2021-01-04 05:27] LABS: CANNABINOID URINE SCREEN NEGATIVE (NEGATIVE); METHADONE URINE SCREEN NEGATIVE (NEGATIVE); OPIATES URINE SCREEN NEGATIVE (NEGATIVE); PHENCYCLIDINE URINE SCREEN NEGATIVE (NEGATIVE)
[2021-01-04 05:52] LABS: *COCAINE SCREEN URINE PRESUMTIVE POSITIVE (NEGATIVE)
[2021-01-04 11:00] VITALS: BP 143/82
[2021-01-04] MEDS ORDERED: CLONIDINE 0.1MG TABLET PO PRN (11:30)
[2021-01-04] MEDS ORDERED: MAGNESIUM/ALUMINUM HYDROXIDE/SIMETHICONE 30ML UDC PO PRN (11:30)
[2021-01-04] MEDS ORDERED: ACETAMINOPHEN 325MG TABLET PO PRN (11:30)
[2021-01-04] MEDS ORDERED: ONDANSETRON HCL 4MG/2ML INJ IV PRN (11:30)
[2021-01-04 12:00] VITALS: BP 129/91
[2021-01-04] MEDS: OMEPRAZOLE 20MG CAPSULE EXTENDED RELEASE PO SCH (13:57)
[2021-01-04] MEDS: ENOXAPARIN 40MG/0.4ML SYR SUBCUT SCH (13:58)
[2021-01-04 16:00] VITALS: BP 135/76
[2021-01-04 20:00] VITALS: BP 107/60
[2021-01-05] VITALS: BP 126/78
[2021-01-05 04:00] VITALS: BP 131/75
[2021-01-05] MEDS: OMEPRAZOLE 20MG CAPSULE EXTENDED RELEASE PO SCH (05:48)
[2021-01-05 08:00] VITALS: BP 126/72
[2021-01-05] MEDS: ENOXAPARIN 40MG/0.4ML SYR SUBCUT SCH (09:03)
[2021-01-05 12:00] VITALS: BP 124/74
== END 2021-01-05 13:05 | disposition left against medical advice (07) | DRG 203 ==
LOC: ER 18:00 → 5WST 01-04 02:09 → MICUSO 01-04 02:09 → UNDOADMIN 01-04 02:09 → 8WST 01-04 08:02
PROVIDERS: ADMIT Internal Medicine; ATTEND Internal Medicine
DX: M94.0 Chondrocostal junction syndrome [Tietze] (principal); D61.818 Other pancytopenia; E87.8 Other disorders of electrolyte and fluid balance, not elsewhere classified; K86.0 Alcohol-induced chronic pancreatitis; F10.10 Alcohol abuse, uncomplicated; F14.10 Cocaine abuse, uncomplicated; I10 Essential (primary) hypertension; Z87.891 Personal history of nicotine dependence; Z98.891 History of uterine scar from previous surgery; Z79.899 Other long term (current) drug therapy; Z88.5 Allergy status to narcotic agent; Z71.51 Drug abuse counseling and surveillance of drug abuser; R10.13 Epigastric pain
CPT/HCPCS: 36415; 71045; 74176; 80053; 80305; 80320; 81003; 82962; 83880; 84484; 84703; 85025; 93005; 93306; 93970; 99285; J1650; J1885; J2405; J7030; G0480

== ENCOUNTER 2021-01-13 20:21 | Emergency (ER) | payer MEDICAID ==
[~2021-01-13] VITALS: Ht 160 cm; Wt 90.0 kg
[2021-01-14] MEDS ORDERED: SODIUM CHLORIDE 0.9% 1,000 ML IV ONE
[2021-01-14 01:15] LABS: CLARITY URINE CLEAR (CLEAR); COLOR URINE ORANGE (YELLOW); KETONES URINE NEGATIVE (NEGATIVE); LEUKOCYTE ESTERASE URINE NEGATIVE (NEGATIVE); NITRITE URINE NEGATIVE (NEGATIVE); OCCULT BLOOD URINE 3+ (NEGATIVE); PH URINE 6.5 (4.5-8.0); PROTEIN URINE TRACE (NEGATIVE); SPECIFIC GRAVITY URINE 1.023 (1.005-1.030)
[2021-01-14 01:44] LABS: *AMPHETAMINES SCREEN URINE NEGATIVE (NEGATIVE); *BARBITURATES SCREEN URINE NEGATIVE (NEGATIVE); *BENZODIAZEPINES SCREEN URINE NEGATIVE (NEGATIVE)
[2021-01-14 01:45] LABS: CANNABINOID URINE SCREEN NEGATIVE (NEGATIVE); METHADONE URINE SCREEN NEGATIVE (NEGATIVE); OPIATES URINE SCREEN NEGATIVE (NEGATIVE); PHENCYCLIDINE URINE SCREEN NEGATIVE (NEGATIVE)
[2021-01-14 01:54] LABS: *COCAINE SCREEN URINE PRESUMTIVE POSITIVE (NEGATIVE)
[2021-01-14 01:56] LABS: BASOPHILS % 0.5 % (0.0-2.0); EOSINOPHILS % 4.1 % (0.0-5.0); HEMATOCRIT. 33.6 % (36.0-48.0); HEMOGLOBIN. 10.9 g/dL (12.0-16.0); MEAN CORPUSCULAR HEMOGLOBIN 27.4 pg (28.0-32.0); MEAN CORPUSCULAR VOLUME 84.3 fL (81.0-99.0); MEAN PLATELET VOLUME 8.5 fl (7.4-10.4); MONOCYTES % 7.8 % (2.0-8.0); NEUTROPHILS % 29.6 % (40.0-76.0); PLATELET 199 x1000/uL (130-400); RED BLOOD CELL COUNT 3.99 mill/uL (4.2-5.4); RED CELL DISTRIBUTION WIDTH 15.1 % (11.6-14.6)
[2021-01-14 02:04] LABS: CHLORIDE 111 mEq/L (98-107)
[2021-01-14 02:13] LABS: ETHANOL BLOOD < 10 mg/dL
[2021-01-14 04:00] VITALS: BP 120/71
== END 2021-01-14 05:56 | disposition home or self-care (01) ==
LOC: ER 20:21
DX: F14.10 Cocaine abuse, uncomplicated (principal); R19.7 Diarrhea, unspecified; R10.9 Unspecified abdominal pain; E11.9 Type 2 diabetes mellitus without complications; I10 Essential (primary) hypertension; Z59.0 Homelessness; Z88.6 Allergy status to analgesic agent; Z20.822 Contact with and (suspected) exposure to COVID-19; Z98.890 Other specified postprocedural states
CPT/HCPCS: 36415; 71045; 80053; 80305; 80320; 81003; 83690; 83880; 84484; 85025; 87426; 96360; 99284; J7030; G0480

== ENCOUNTER 2021-01-21 17:50 | Emergency (ER) | payer MEDICAID ==
[~2021-01-21] VITALS: Ht 160 cm; Wt 90.0 kg
[2021-01-21 18:04] VITALS: BP 161/96
== END 2021-01-21 18:59 | disposition left against medical advice (07) ==
LOC: ER 17:50
DX: Z53.21 Procedure and treatment not carried out due to patient leaving prior to being seen by health care provider (principal); I10 Essential (primary) hypertension
CPT/HCPCS: 93005

== ENCOUNTER 2021-01-24 20:47 | Emergency (ER) | payer MEDICAID ==
[~2021-01-24] VITALS: Ht 160 cm; Wt 91.0 kg
[2021-01-24 20:59] VITALS: BP 123/93
== END 2021-01-24 23:30 | disposition left against medical advice (07) ==
LOC: ER 20:47
DX: R07.89 Other chest pain (principal); Z53.21 Procedure and treatment not carried out due to patient leaving prior to being seen by health care provider
CPT/HCPCS: 93005

== ENCOUNTER 2021-01-26 17:07 | Emergency (ER) | payer MEDICAID ==
[~2021-01-26] VITALS: Ht 160 cm; Wt 91.0 kg
[2021-01-26 22:27] VITALS: BP 133/86
[2021-01-26] MEDS ORDERED: ACETAMINOPHEN 325MG TABLET PO STA (22:28)
[2021-01-26 23:45] LABS: BASOPHILS % 0.7 % (0.0-2.0); EOSINOPHILS % 3.8 % (0.0-5.0); HEMATOCRIT. 33.6 % (36.0-48.0); HEMOGLOBIN. 10.9 g/dL (12.0-16.0); LYMPHOCYTES % 51.8 % (20.0-50.0); MEAN CORPUSCULAR HEMOGLOBIN 27.2 pg (28.0-32.0); MEAN CORPUSCULAR VOLUME 83.8 fL (81.0-99.0); MEAN PLATELET VOLUME 8.6 fl (7.4-10.4); MONOCYTES % 10.7 % (2.0-8.0); PLATELET 143 x1000/uL (130-400); RED BLOOD CELL COUNT 4.01 mill/uL (4.2-5.4); RED CELL DISTRIBUTION WIDTH 14.6 % (11.6-14.6)
[2021-01-26 23:52] LABS: CLARITY URINE CLEAR (CLEAR); COLOR URINE YELLOW (YELLOW); KETONES URINE NEGATIVE (NEGATIVE); LEUKOCYTE ESTERASE URINE NEGATIVE (NEGATIVE); NITRITE URINE NEGATIVE (NEGATIVE); OCCULT BLOOD URINE NEGATIVE (NEGATIVE); PH URINE 6.5 (4.5-8.0); PROTEIN URINE NEGATIVE (NEGATIVE); SPECIFIC GRAVITY URINE 1.022 (1.005-1.030)
[2021-01-26 23:58] LABS: CHLORIDE 109 mEq/L (98-107)
[2021-01-27 00:03] LABS: ETHANOL BLOOD < 10 mg/dL
== END 2021-01-27 00:37 | disposition home or self-care (01) ==
LOC: ER 17:07
DX: R19.7 Diarrhea, unspecified (principal); R10.9 Unspecified abdominal pain; R07.9 Chest pain, unspecified; R11.10 Vomiting, unspecified; I10 Essential (primary) hypertension; Z88.6 Allergy status to analgesic agent; Z98.890 Other specified postprocedural states
CPT/HCPCS: 36415; 71045; 80053; 80320; 81003; 84484; 85025; 93005; 99285; G0480

== ENCOUNTER 2021-02-10 21:00 | Inpatient (IN) | payer MEDICAID ==
[~2021-02-10] VITALS: Ht 160 cm; Wt 90.7 kg
[2021-02-10 23:27] LABS: CLARITY URINE CLEAR (CLEAR); COLOR URINE YELLOW (YELLOW); KETONES URINE NEGATIVE (NEGATIVE); LEUKOCYTE ESTERASE URINE NEGATIVE (NEGATIVE); NITRITE URINE NEGATIVE (NEGATIVE); OCCULT BLOOD URINE NEGATIVE (NEGATIVE); PH URINE 5.5 (4.5-8.0); PROTEIN URINE NEGATIVE (NEGATIVE); SPECIFIC GRAVITY URINE 1.028 (1.005-1.030)
[2021-02-10 23:40] LABS: METHADONE URINE SCREEN NEGATIVE (NEGATIVE); OPIATES URINE SCREEN NEGATIVE (NEGATIVE)
[2021-02-10 23:41] LABS: *AMPHETAMINES SCREEN URINE NEGATIVE (NEGATIVE); *BARBITURATES SCREEN URINE NEGATIVE (NEGATIVE); *BENZODIAZEPINES SCREEN URINE NEGATIVE (NEGATIVE); CANNABINOID URINE SCREEN NEGATIVE (NEGATIVE); PHENCYCLIDINE URINE SCREEN NEGATIVE (NEGATIVE)
[2021-02-10 23:52] LABS: *COCAINE SCREEN URINE PRESUMTIVE POSITIVE (NEGATIVE)
[2021-02-11] MEDS ORDERED: ACETAMINOPHEN 325MG TABLET PO ONE
[2021-02-11] MEDS ORDERED: LORAZEPAM 1MG TABLET PO ONE (00:45)
[2021-02-11] MEDS ORDERED: NITROGLYCERIN 0.4MG TABLET SL SL PRN (00:45)
[2021-02-11] MEDS ORDERED: ASPIRIN 81MG TABLET PO ONE (00:45)
[2021-02-11 01:51] LABS: BASOPHILS % 0.8 % (0.0-2.0); EOSINOPHILS % 4.8 % (0.0-5.0); HEMATOCRIT. 33.2 % (36.0-48.0); HEMOGLOBIN. 10.6 g/dL (12.0-16.0); LYMPHOCYTES % 48.7 % (20.0-50.0); MEAN CORPUSCULAR HEMOGLOBIN 26.8 pg (28.0-32.0); MEAN CORPUSCULAR VOLUME 84.4 fL (81.0-99.0); MEAN PLATELET VOLUME 8.6 fl (7.4-10.4); MONOCYTES % 9.9 % (2.0-8.0); NEUTROPHILS % 35.8 % (40.0-76.0); PLATELET 191 x1000/uL (130-400); RED BLOOD CELL COUNT 3.93 mill/uL (4.2-5.4); RED CELL DISTRIBUTION WIDTH 14.6 % (11.6-14.6)
[2021-02-11 01:53] LABS: CHLORIDE 111 mEq/L (98-107)
[2021-02-11] MEDS ORDERED: ONDANSETRON HCL 4MG/2ML INJ IV PRN (10:00)
[2021-02-11 10:19] VITALS: BP 134/94
[2021-02-11 12:18] VITALS: BP 130/89
[2021-02-11] MEDS: ACETAMINOPHEN 325MG TABLET PO PRN (13:16)
[2021-02-11 16:00] VITALS: BP 112/62
[2021-02-11 20:00] VITALS: BP 122/64
[2021-02-11 20:07] VITALS: BP 122/85
[2021-02-11 20:10] VITALS: BP 160/106
[2021-02-11] MEDS ORDERED: FAMOTIDINE 20MG TABLET PO SCH (21:00)
[2021-02-12 04:00] VITALS: BP 119/70
[2021-02-12] MEDS: ACETAMINOPHEN 325MG TABLET PO PRN (05:12)
[2021-02-12] MEDS ORDERED: ASPIRIN 81MG TABLET PO SCH (09:00)
== END 2021-02-12 16:05 | disposition home or self-care (01) | DRG 816 ==
LOC: ER 21:00 → MICUSO 02-11 01:09 → EDBEDREQ 02-11 01:17 → EDBEDREQTM 02-11 01:17 → 6WST 02-11 07:52
PROVIDERS: ADMIT Internal Medicine; ATTEND Internal Medicine
DX: T40.5X1A Poisoning by cocaine, accidental (unintentional), initial encounter (principal); E44.0 Moderate protein-calorie malnutrition; E87.8 Other disorders of electrolyte and fluid balance, not elsewhere classified; R07.89 Other chest pain; I25.10 Atherosclerotic heart disease of native coronary artery without angina pectoris; D72.819 Decreased white blood cell count, unspecified; D64.9 Anemia, unspecified; F10.10 Alcohol abuse, uncomplicated; E66.9 Obesity, unspecified; F17.210 Nicotine dependence, cigarettes, uncomplicated; F14.90 Cocaine use, unspecified, uncomplicated; Z20.822 Contact with and (suspected) exposure to COVID-19; I10 Essential (primary) hypertension; Z82.49 Family history of ischemic heart disease and other diseases of the circulatory system; Z98.891 History of uterine scar from previous surgery; Z88.5 Allergy status to narcotic agent; Z68.35 Body mass index [BMI] 35.0-35.9, adult; Y92.89 Other specified places as the place of occurrence of the external cause
CPT/HCPCS: 36415; 71045; 80053; 80305; 81003; 83880; 84443; 84484; 85025; 87426; 93005; 99285

== ENCOUNTER 2021-02-13 03:40 | Emergency (ER) | payer MEDICAID ==
[~2021-02-13] VITALS: Ht 160 cm; Wt 114.0 kg
[~2021-02-13 03:40] MED LIST changes: -AZIT500T8 MT; -DOXY100C42 MT; -NITR100C MT
[2021-02-13 04:25] VITALS: BP 146/91
== END 2021-02-13 06:23 | disposition left against medical advice (07) ==
LOC: ER 03:40
DX: Z53.21 Procedure and treatment not carried out due to patient leaving prior to being seen by health care provider (principal); I10 Essential (primary) hypertension; Z98.890 Other specified postprocedural states

== ENCOUNTER 2021-03-08 08:05 | Emergency (ER) | payer MEDICAID ==
[~2021-03-08] VITALS: Ht 157.5 cm; Wt 90.0 kg
[2021-03-08 08:30] VITALS: BP 118/71
== END 2021-03-08 10:28 | disposition left against medical advice (07) ==
LOC: ER 08:05
DX: R10.2 Pelvic and perineal pain (principal); R07.89 Other chest pain; I10 Essential (primary) hypertension; F14.10 Cocaine abuse, uncomplicated; Z98.890 Other specified postprocedural states; Z86.19 Personal history of other infectious and parasitic diseases; Z88.5 Allergy status to narcotic agent
CPT/HCPCS: 71045; 93005; 99283

== ENCOUNTER 2021-04-14 18:31 | Emergency (ER) | payer MEDICAID ==
[~2021-04-14] VITALS: Ht 165.1 cm; Wt 75.0 kg
[2021-04-14 18:38] VITALS: BP 157/77
[2021-04-14 22:00] LABS: BASOPHILS % 0.9 % (0.0-2.0); EOSINOPHILS % 3.7 % (0.0-5.0); HEMATOCRIT. 32.4 % (36.0-48.0); HEMOGLOBIN. 10.5 g/dL (12.0-16.0); LYMPHOCYTES % 59.2 % (20.0-50.0); MEAN CORPUSCULAR HEMOGLOBIN 26.9 pg (28.0-32.0); MEAN CORPUSCULAR VOLUME 82.8 fL (81.0-99.0); MEAN PLATELET VOLUME 7.9 fl (7.4-10.4); MONOCYTES % 10.3 % (2.0-8.0); NEUTROPHILS % 25.9 % (40.0-76.0); PLATELET 211 x1000/uL (130-400); RED BLOOD CELL COUNT 3.91 mill/uL (4.2-5.4); RED CELL DISTRIBUTION WIDTH 14.6 % (11.6-14.6)
[2021-04-14 22:06] LABS: CHLORIDE 110 mEq/L (98-107)
[2021-04-14 22:07] LABS: HCG SCREEN NEGATIVE
== END 2021-04-14 22:35 | disposition left against medical advice (07) ==
LOC: ER 18:31
DX: Z53.21 Procedure and treatment not carried out due to patient leaving prior to being seen by health care provider (principal); R19.7 Diarrhea, unspecified; R53.1 Weakness; R11.10 Vomiting, unspecified; Z88.6 Allergy status to analgesic agent; I10 Essential (primary) hypertension; Z98.890 Other specified postprocedural states
CPT/HCPCS: 36415; 80053; 84703; 85025; 99283

== ENCOUNTER 2021-04-20 17:13 | Emergency (ER) | payer MEDICAID ==
[~2021-04-20] VITALS: Ht 165.1 cm; Wt 105.0 kg
[2021-04-20 17:17] VITALS: BP 127/70
== END 2021-04-20 22:33 | disposition left against medical advice (07) ==
LOC: ER 17:13
DX: R19.7 Diarrhea, unspecified (principal); Z53.21 Procedure and treatment not carried out due to patient leaving prior to being seen by health care provider

== ENCOUNTER 2021-05-04 12:17 | Emergency (ER) | payer MEDICAID ==
[~2021-05-04] VITALS: Ht 165.1 cm; Wt 100.0 kg
[2021-05-04] MEDS ORDERED: LORAZEPAM 1MG TABLET PO ONE ×2 (18:45→23:30)
[2021-05-04] MEDS ORDERED: ASPIRIN 81MG TABLET PO ONE ×2 (18:45→23:30)
[2021-05-04] MEDS ORDERED: ACETAMINOPHEN 325MG TABLET PO ONE (23:30)
[2021-05-04] MEDS ORDERED: IBUPROFEN 400MG TABLET PO ONE (23:30)
[2021-05-04 23:47] LABS: CLARITY URINE CLEAR (CLEAR); COLOR URINE YELLOW (YELLOW); KETONES URINE TRACE (NEGATIVE); LEUKOCYTE ESTERASE URINE NEGATIVE (NEGATIVE); NITRITE URINE NEGATIVE (NEGATIVE); OCCULT BLOOD URINE NEGATIVE (NEGATIVE); PROTEIN URINE NEGATIVE (NEGATIVE); SPECIFIC GRAVITY URINE 1.029 (1.005-1.030)
[2021-05-05 00:14] VITALS: BP 128/72
[2021-05-05 00:18] LABS: *AMPHETAMINES SCREEN URINE NEGATIVE (NEGATIVE); *BARBITURATES SCREEN URINE NEGATIVE (NEGATIVE); *BENZODIAZEPINES SCREEN URINE NEGATIVE (NEGATIVE); CANNABINOID URINE SCREEN NEGATIVE (NEGATIVE); METHADONE URINE SCREEN NEGATIVE (NEGATIVE); OPIATES URINE SCREEN NEGATIVE (NEGATIVE); PHENCYCLIDINE URINE SCREEN NEGATIVE (NEGATIVE)
[2021-05-05 00:31] LABS: *COCAINE SCREEN URINE PRESUMTIVE POSITIVE (NEGATIVE)
== END 2021-05-05 00:15 | disposition home or self-care (01) ==
LOC: ER 12:17
DX: F14.10 Cocaine abuse, uncomplicated (principal); R07.9 Chest pain, unspecified; F17.210 Nicotine dependence, cigarettes, uncomplicated; I10 Essential (primary) hypertension; Z88.6 Allergy status to analgesic agent; Z86.19 Personal history of other infectious and parasitic diseases; Z98.890 Other specified postprocedural states
CPT/HCPCS: 71045; 80305; 81003; 81025; 93005; 99285; Z7610

== ENCOUNTER 2021-05-18 02:46 | Emergency (ER) | payer MEDICAID ==
[~2021-05-18] VITALS: Ht 172.7 cm; Wt 91.0 kg
[2021-05-18] MEDS ORDERED: IBUPROFEN 400MG TABLET PO ONE (08:15)
[2021-05-18] MEDS ORDERED: ACETAMINOPHEN 325MG TABLET PO ONE (08:15)
[2021-05-18 08:44] LABS: BASOPHILS % 0.9 % (0.0-2.0); EOSINOPHILS % 3.4 % (0.0-5.0); HEMATOCRIT. 33.2 % (36.0-48.0); HEMOGLOBIN. 10.6 g/dL (12.0-16.0); LYMPHOCYTES % 33.8 % (20.0-50.0); MEAN CORPUSCULAR HEMOGLOBIN 26.6 pg (28.0-32.0); MEAN PLATELET VOLUME 8.5 fl (7.4-10.4); MONOCYTES % 11.3 % (2.0-8.0); NEUTROPHILS % 50.6 % (40.0-76.0); PLATELET 215 x1000/uL (130-400); RED CELL DISTRIBUTION WIDTH 14.9 % (11.6-14.6)
[2021-05-18 08:49] LABS: CHLORIDE 110 mEq/L (98-107)
[2021-05-18 11:41] VITALS: BP 118/69
== END 2021-05-18 12:02 | disposition home or self-care (01) ==
LOC: ER 02:46
DX: R50.9 Fever, unspecified (principal); F14.10 Cocaine abuse, uncomplicated; I10 Essential (primary) hypertension; Z59.00 Homelessness unspecified; Z88.5 Allergy status to narcotic agent
CPT/HCPCS: 36415; 71045; 80053; 83880; 84484; 85025; 93005; 99285; Z7610

== ENCOUNTER 2021-05-19 21:10 | Emergency (ER) | payer MEDICAID ==
[~2021-05-19] VITALS: Ht 162.6 cm; Wt 91.0 kg
[2021-05-19 21:26] VITALS: BP 130/87
== END 2021-05-20 02:14 | disposition left against medical advice (07) ==
LOC: ER 21:10
DX: Z53.21 Procedure and treatment not carried out due to patient leaving prior to being seen by health care provider (principal); I49.9 Cardiac arrhythmia, unspecified
CPT/HCPCS: 93005

== ENCOUNTER 2021-05-24 02:42 | Emergency (ER) | payer MEDICAID ==
[~2021-05-24] VITALS: Ht 160 cm; Wt 91.0 kg
[2021-05-24] MEDS ORDERED: ACETAMINOPHEN 325MG TABLET PO ONE (04:00)
[2021-05-24 04:55] LABS: BASOPHILS % 0.8 % (0.0-2.0); EOSINOPHILS % 3.2 % (0.0-5.0); HEMOGLOBIN. 10.7 g/dL (12.0-16.0); LYMPHOCYTES % 51.4 % (20.0-50.0); MEAN CORPUSCULAR HEMOGLOBIN 26.5 pg (28.0-32.0); MEAN CORPUSCULAR VOLUME 81.9 fL (81.0-99.0); MEAN PLATELET VOLUME 8.1 fl (7.4-10.4); MONOCYTES % 12.6 % (2.0-8.0); PLATELET 181 x1000/uL (130-400); RED BLOOD CELL COUNT 4.03 mill/uL (4.2-5.4); RED CELL DISTRIBUTION WIDTH 14.7 % (11.6-14.6)
[2021-05-24 05:01] LABS: CHLORIDE 108 mEq/L (98-107)
[2021-05-24 07:48] VITALS: BP 100/60
== END 2021-05-24 07:50 | disposition home or self-care (01) ==
LOC: ER 02:42
DX: G89.29 Other chronic pain (principal); R10.13 Epigastric pain; R07.89 Other chest pain; F14.10 Cocaine abuse, uncomplicated; Z87.19 Personal history of other diseases of the digestive system; Z98.890 Other specified postprocedural states; Z88.8 Allergy status to other drugs, medicaments and biological substances
CPT/HCPCS: 36415; 71045; 80053; 83690; 85025; 93005; 99285; Z7610

== ENCOUNTER 2021-05-29 21:16 | Emergency (ER) | payer MEDICAID ==
[~2021-05-29] VITALS: Ht 160 cm; Wt 91.0 kg
[2021-05-29 22:07] VITALS: BP 117/81
== END 2021-05-30 09:11 | disposition left against medical advice (07) ==
LOC: ER 21:16
DX: R07.89 Other chest pain (principal); I10 Essential (primary) hypertension; Z98.890 Other specified postprocedural states
CPT/HCPCS: 71045; 93005; 99283

== ENCOUNTER 2021-05-31 01:06 | Emergency (ER) | payer MEDICAID ==
[~2021-05-31] VITALS: Ht 160 cm; Wt 91.0 kg
[2021-05-31 01:22] VITALS: BP 144/75
[2021-05-31 02:41] LABS: BASOPHILS % 0.8 % (0.0-2.0); EOSINOPHILS % 3.2 % (0.0-5.0); HEMATOCRIT. 34.2 % (36.0-48.0); HEMOGLOBIN. 11.1 g/dL (12.0-16.0); LYMPHOCYTES % 45.6 % (20.0-50.0); MEAN CORPUSCULAR HEMOGLOBIN 26.7 pg (28.0-32.0); MEAN CORPUSCULAR VOLUME 82.5 fL (81.0-99.0); MEAN PLATELET VOLUME 8.8 fl (7.4-10.4); MONOCYTES % 8.2 % (2.0-8.0); NEUTROPHILS % 42.2 % (40.0-76.0); PLATELET 161 x1000/uL (130-400); RED BLOOD CELL COUNT 4.15 mill/uL (4.2-5.4); RED CELL DISTRIBUTION WIDTH 14.6 % (11.6-14.6)
[2021-05-31 02:47] LABS: CHLORIDE 108 mEq/L (98-107)
[2021-05-31] MEDS ORDERED: ACETAMINOPHEN 325MG TABLET PO ONE (05:00)
== END 2021-05-31 06:32 | disposition home or self-care (01) ==
LOC: ER 01:06
DX: R07.89 Other chest pain (principal); I11.9 Hypertensive heart disease without heart failure; F17.210 Nicotine dependence, cigarettes, uncomplicated; Z98.890 Other specified postprocedural states
CPT/HCPCS: 36415; 80053; 83880; 84484; 85025; 99283

== ENCOUNTER 2021-06-10 21:18 | Emergency (ER) | payer MEDICAID ==
[~2021-06-10] VITALS: Ht 160 cm; Wt 90.0 kg
[2021-06-10 21:30] VITALS: BP 134/76
== END 2021-06-11 12:00 | disposition left against medical advice (07) ==
LOC: ER 21:18
DX: R07.89 Other chest pain (principal); I10 Essential (primary) hypertension; Z88.5 Allergy status to narcotic agent; Z98.890 Other specified postprocedural states
CPT/HCPCS: 71045; 93005; 99283

== ENCOUNTER 2021-06-15 19:56 | Emergency (ER) | payer MEDICAID ==
[~2021-06-15] VITALS: Ht 160 cm; Wt 91.0 kg
[2021-06-15 20:32] VITALS: BP 133/66
== END 2021-06-15 21:52 | disposition left against medical advice (07) ==
LOC: ER 19:56
DX: R07.89 Other chest pain (principal); I10 Essential (primary) hypertension; Z98.890 Other specified postprocedural states; Z88.5 Allergy status to narcotic agent
CPT/HCPCS: 93005; 99283

== ENCOUNTER 2021-06-25 00:02 | Emergency (ER) | payer MEDICAID ==
[~2021-06-25] VITALS: Ht 160 cm; Wt 91.0 kg
[2021-06-25 00:16] VITALS: BP 145/76
== END 2021-06-25 06:34 | disposition left against medical advice (07) ==
LOC: ER 00:02
DX: R06.00 Dyspnea, unspecified (principal); F14.10 Cocaine abuse, uncomplicated; I10 Essential (primary) hypertension; Z88.5 Allergy status to narcotic agent; Z98.890 Other specified postprocedural states
CPT/HCPCS: 71045; 93005; 99283

== ENCOUNTER 2021-07-15 03:13 | Emergency (ER) | payer MEDICAID ==
[~2021-07-15] VITALS: Ht 160 cm; Wt 73.2 kg
[2021-07-15] MEDS ORDERED: ASPIRIN 81MG TABLET PO ONE (04:15)
[2021-07-15 04:22] VITALS: BP 148/78
== END 2021-07-15 04:55 | disposition left against medical advice (07) ==
LOC: ER 03:13
DX: R07.9 Chest pain, unspecified (principal); I10 Essential (primary) hypertension; Z88.6 Allergy status to analgesic agent
CPT/HCPCS: 71045; 93005; 99283

== ENCOUNTER 2021-07-28 04:35 | Emergency (ER) | payer MEDICAID ==
[~2021-07-28] VITALS: Ht 160 cm; Wt 91.0 kg
[2021-07-28 04:39] VITALS: BP 129/85
[2021-07-28 05:55] LABS: BASOPHILS % 1.2 % (0.0-2.0); EOSINOPHILS % 4.1 % (0.0-5.0); HEMATOCRIT. 33.8 % (36.0-48.0); HEMOGLOBIN. 11.1 g/dL (12.0-16.0); LYMPHOCYTES % 44.7 % (20.0-50.0); MEAN CORPUSCULAR HEMOGLOBIN 26.4 pg (28.0-32.0); MEAN CORPUSCULAR VOLUME 80.3 fL (81.0-99.0); MEAN PLATELET VOLUME 8.7 fl (7.4-10.4); MONOCYTES % 8.9 % (2.0-8.0); NEUTROPHILS % 41.1 % (40.0-76.0); PLATELET 188 x1000/uL (130-400); RED BLOOD CELL COUNT 4.21 mill/uL (4.2-5.4); RED CELL DISTRIBUTION WIDTH 15.4 % (11.6-14.6)
== END 2021-07-28 07:14 | disposition left against medical advice (07) ==
LOC: ER 04:55
DX: R07.9 Chest pain, unspecified (principal); I25.10 Atherosclerotic heart disease of native coronary artery without angina pectoris; I10 Essential (primary) hypertension; Z88.6 Allergy status to analgesic agent; Z87.891 Personal history of nicotine dependence; Z98.890 Other specified postprocedural states
CPT/HCPCS: 36415; 71045; 74176; 85025; 93005; 99285

== ENCOUNTER 2021-08-17 15:22 | Emergency (ER) | payer MEDICAID ==
[~2021-08-17] VITALS: Ht 160 cm; Wt 91.0 kg
[2021-08-17 15:33] VITALS: BP 122/68
[2021-08-17] MEDS ORDERED: ASPIRIN 81MG TABLET PO ONE (16:30)
[2021-08-17 17:07] LABS: BASOPHILS % 0.5 % (0.0-2.0); HEMATOCRIT. 30.3 % (36.0-48.0); MEAN CORPUSCULAR VOLUME 81.5 fL (81.0-99.0); MEAN PLATELET VOLUME 8.5 fl (7.4-10.4); MONOCYTES % 9.6 % (2.0-8.0); NEUTROPHILS % 40.9 % (40.0-76.0); PLATELET 194 x1000/uL (130-400); RED BLOOD CELL COUNT 3.72 mill/uL (4.2-5.4); RED CELL DISTRIBUTION WIDTH 16.2 % (11.6-14.6)
[2021-08-17 17:16] LABS: CHLORIDE 109 mEq/L (98-107)
== END 2021-08-17 18:56 | disposition left against medical advice (07) ==
LOC: ER 15:22
DX: R07.89 Other chest pain (principal); F14.10 Cocaine abuse, uncomplicated; Z98.890 Other specified postprocedural states; Z88.5 Allergy status to narcotic agent
CPT/HCPCS: 36415; 71045; 80053; 83880; 84484; 85025; 93005; 99285; Z7610

== ENCOUNTER 2021-10-11 17:27 | Emergency (ER) | payer MEDICAID ==
[~2021-10-11] VITALS: Ht 160 cm; Wt 90.9 kg
[2021-10-11] MEDS ORDERED: HYDROCODONE/ACETAMINOPHEN 5/325MG TABLET PO STA (18:14)
[2021-10-11] MEDS ORDERED: MAGNESIUM/ALUMINUM HYDROXIDE/SIMETHICONE 30ML UDC PO ONE (18:15)
[2021-10-11] MEDS ORDERED: VISCOUS LIDOCAINE 2% 15 ML UDC PO ONE (18:15)
[2021-10-11 20:13] LABS: BASOPHILS % 0.3 % (0.0-2.0); EOSINOPHILS % 3.8 % (0.0-5.0); HEMATOCRIT. 34.3 % (36.0-48.0); HEMOGLOBIN. 11.1 g/dL (12.0-16.0); LYMPHOCYTES % 41.4 % (20.0-50.0); MEAN CORPUSCULAR HEMOGLOBIN 26.6 pg (28.0-32.0); MEAN PLATELET VOLUME 8.7 fl (7.4-10.4); MONOCYTES % 9.5 % (2.0-8.0); PLATELET 154 x1000/uL (130-400); RED BLOOD CELL COUNT 4.19 mill/uL (4.2-5.4)
[2021-10-11 20:21] LABS: CHLORIDE 111 mEq/L (98-107)
[2021-10-11 20:31] LABS: ETHANOL BLOOD < 10 mg/dL
[2021-10-11] MEDS: MAGNESIUM/ALUMINUM HYDROXIDE/SIMETHICONE 30ML UDC PO NR ×2 (22:26→22:28)
[2021-10-11] MEDS: VISCOUS LIDOCAINE 2% 15 ML UDC PO NR ×2 (22:26→22:27)
[2021-10-11] MEDS ORDERED: HYDROCODONE/ACETAMINOPHEN 5/325MG TABLET PO NR (22:30)
[2021-10-12 00:24] VITALS: BP 119/76
[2021-10-12 00:51] LABS: CLARITY URINE CLEAR (CLEAR); COLOR URINE YELLOW (YELLOW); KETONES URINE TRACE (NEGATIVE); LEUKOCYTE ESTERASE URINE NEGATIVE (NEGATIVE); NITRITE URINE NEGATIVE (NEGATIVE); OCCULT BLOOD URINE NEGATIVE (NEGATIVE); PH URINE 5.5 (4.5-8.0); PROTEIN URINE NEGATIVE (NEGATIVE); SPECIFIC GRAVITY URINE 1.034 (1.005-1.030)
[2021-10-12] MEDS ORDERED: FAMOTIDINE 20MG TABLET PO SCH (01:00)
[2021-10-12] MEDS ORDERED: ACETAMINOPHEN 325MG TABLET PO SCH (01:00)
[2021-10-12] MEDS ORDERED: ACET650T37 MT (01:49)
[2021-10-12] MEDS ORDERED: PROT20 MT (01:49)
== END 2021-10-12 02:20 | disposition home or self-care (01) ==
LOC: ER 17:27
DX: R10.13 Epigastric pain (principal); R07.89 Other chest pain; Z88.5 Allergy status to narcotic agent; Z98.890 Other specified postprocedural states
CPT/HCPCS: 36415; 71045; 76705; 80053; 80320; 81003; 83880; 84484; 85025; 93005; 99285; G0480

== ENCOUNTER 2021-11-13 09:52 | Emergency (ER) | payer MEDICAID ==
[~2021-11-13] VITALS: Ht 160 cm; Wt 91.0 kg
[~2021-11-13 09:52] MED LIST changes: +ACET-3163 MT; +PROT20 MT
[2021-11-13 09:54] VITALS: BP 146/66
== END 2021-11-13 17:07 | disposition left against medical advice (07) ==
LOC: ER 10:04
DX: R07.9 Chest pain, unspecified (principal); R06.02 Shortness of breath; R10.9 Unspecified abdominal pain; I25.10 Atherosclerotic heart disease of native coronary artery without angina pectoris; I10 Essential (primary) hypertension; Z88.6 Allergy status to analgesic agent; Z98.890 Other specified postprocedural states
CPT/HCPCS: 71045; 93005; 99283

== ENCOUNTER 2021-11-21 08:08 | Emergency (ER) | payer MEDICAID ==
[~2021-11-21] VITALS: Ht 160 cm; Wt 91.0 kg
[2021-11-21 08:18] VITALS: BP 114/62
[2021-11-21] MEDS ORDERED: ACETAMINOPHEN 325MG TABLET PO ONE (10:45)
[2021-11-21] MEDS ORDERED: FAMOTIDINE 20MG TABLET PO SCH (10:45)
[2021-11-21] MEDS ORDERED: ONDANSETRON 4MG ODT PO ONE (10:45)
[2021-11-21] MEDS: MAGNESIUM/ALUMINUM HYDROXIDE/SIMETHICONE 30ML UDC PO STA ×2 (10:57→11:09)
[2021-11-21] MEDS: VISCOUS LIDOCAINE 2% 15 ML UDC MM STA ×2 (10:57→11:08)
[2021-11-21 11:55] LABS: INR 0.9
[2021-11-21 11:56] LABS: BASOPHILS % 0.6 % (0.0-2.0); EOSINOPHILS % 3.7 % (0.0-5.0); HEMATOCRIT. 32.8 % (36.0-48.0); HEMOGLOBIN. 10.4 g/dL (12.0-16.0); LYMPHOCYTES % 45.6 % (20.0-50.0); MEAN CORPUSCULAR HEMOGLOBIN 26.1 pg (28.0-32.0); MEAN CORPUSCULAR VOLUME 82.3 fL (81.0-99.0); MEAN PLATELET VOLUME 8.7 fl (7.4-10.4); MONOCYTES % 11.8 % (2.0-8.0); NEUTROPHILS % 38.3 % (40.0-76.0); PLATELET 185 x1000/uL (130-400); RED BLOOD CELL COUNT 3.99 mill/uL (4.2-5.4); RED CELL DISTRIBUTION WIDTH 15.7 % (11.6-14.6)
[2021-11-21 11:57] LABS: HCG SCREEN NEGATIVE
[2021-11-21 12:08] LABS: CHLORIDE 109 mEq/L (98-107)
[2021-11-21 12:16] LABS: ETHANOL BLOOD < 10 mg/dL
== END 2021-11-21 13:30 | disposition left against medical advice (07) ==
LOC: ER 08:08
DX: R10.9 Unspecified abdominal pain (principal); R06.02 Shortness of breath; R07.89 Other chest pain; F10.229 Alcohol dependence with intoxication, unspecified; I25.10 Atherosclerotic heart disease of native coronary artery without angina pectoris; I10 Essential (primary) hypertension; F17.290 Nicotine dependence, other tobacco product, uncomplicated; Z79.899 Other long term (current) drug therapy
CPT/HCPCS: 36415; 80053; 80320; 83690; 83880; 84484; 84703; 85025; 85610; 93005; 99284; Q0162; G0480

== ENCOUNTER 2021-12-01 20:30 | Emergency (ER) | payer MEDICAID ==
[~2021-12-01] VITALS: Ht 160 cm; Wt 91.0 kg
[2021-12-01 21:54] VITALS: BP 139/86
[2021-12-02] MEDS ORDERED: MAGNESIUM/ALUMINUM HYDROXIDE/SIMETHICONE 30ML UDC PO STA (00:36)
[2021-12-02] MEDS ORDERED: VISCOUS LIDOCAINE 2% 15 ML UDC PO STA (00:36)
[2021-12-02] MEDS ORDERED: FAMOTIDINE 20MG TABLET PO ONE (01:00)
== END 2021-12-02 01:35 | disposition home or self-care (01) ==
LOC: ER 20:30
DX: R10.9 Unspecified abdominal pain (principal); I25.10 Atherosclerotic heart disease of native coronary artery without angina pectoris; I10 Essential (primary) hypertension; Z98.890 Other specified postprocedural states; Z88.6 Allergy status to analgesic agent
CPT/HCPCS: 93005; 99283

== ENCOUNTER 2021-12-10 21:44 | Emergency (ER) | payer MEDICAID ==
[~2021-12-10] VITALS: Ht 160 cm; Wt 91.0 kg
[2021-12-10 21:48] VITALS: BP 119/69
== END 2021-12-10 22:30 | disposition left against medical advice (07) ==
LOC: ER 21:44
DX: Z53.21 Procedure and treatment not carried out due to patient leaving prior to being seen by health care provider (principal)
CPT/HCPCS: 93005; 99283

== ENCOUNTER 2022-01-27 05:13 | Emergency (ER) | payer MEDICAID ==
[~2022-01-27] VITALS: Ht 160 cm; Wt 91.0 kg
[2022-01-27 08:59] LABS: BASOPHILS % 0.8 % (0.0-2.0); EOSINOPHILS % 3.7 % (0.0-5.0); HEMOGLOBIN. 10.6 g/dL (12.0-16.0); LYMPHOCYTES % 43.5 % (20.0-50.0); MEAN CORPUSCULAR HEMOGLOBIN 25.8 pg (28.0-32.0); MEAN PLATELET VOLUME 8.5 fl (7.4-10.4); MONOCYTES % 11.3 % (2.0-8.0); NEUTROPHILS % 40.7 % (40.0-76.0); PLATELET 167 x1000/uL (130-400); RED BLOOD CELL COUNT 4.13 mill/uL (4.2-5.4); RED CELL DISTRIBUTION WIDTH 14.9 % (11.6-14.6)
[2022-01-27 09:10] LABS: CHLORIDE 107 mEq/L (98-107); INR 0.9; PROTHROMBIN TIME 10.2 sec (9.6-11.0)
[2022-01-27 09:37] LABS: CLARITY URINE CLEAR (CLEAR); COLOR URINE YELLOW (YELLOW); KETONES URINE NEGATIVE (NEGATIVE); LEUKOCYTE ESTERASE URINE NEGATIVE (NEGATIVE); NITRITE URINE NEGATIVE (NEGATIVE); OCCULT BLOOD URINE NEGATIVE (NEGATIVE); PH URINE 6.5 (4.5-8.0); PROTEIN URINE NEGATIVE (NEGATIVE); UROBILINOGEN URINE 0.2 E.U./dL (0.2-1.0)
[2022-01-27 11:54] VITALS: BP 126/90
== END 2022-01-27 11:55 | disposition home or self-care (01) ==
LOC: ER 05:13
DX: R07.9 Chest pain, unspecified (principal); F14.90 Cocaine use, unspecified, uncomplicated; I10 Essential (primary) hypertension; I25.10 Atherosclerotic heart disease of native coronary artery without angina pectoris; Z88.6 Allergy status to analgesic agent; Z87.19 Personal history of other diseases of the digestive system; Z98.890 Other specified postprocedural states
CPT/HCPCS: 36415; 71045; 80053; 81003; 83690; 83880; 84484; 85025; 85610; 93005; 99285; Z7610

== ENCOUNTER 2022-09-13 10:02 | Emergency (ER) | payer MEDICAID ==
[~2022-09-13] VITALS: Ht 160 cm; Wt 91.0 kg
[2022-09-13 10:37] LABS: HEMOGLOBIN. 10.6 g/dL (12.0-16.0); MEAN CORPUSCULAR HEMOGLOBIN 24.1 pg (28.0-32.0); MEAN CORPUSCULAR VOLUME 74.7 fL (81.0-99.0); MEAN PLATELET VOLUME 8.1 fl (7.4-10.4); PLATELET 195 x1000/uL (130-400); RED BLOOD CELL COUNT 4.42 mill/uL (4.2-5.4); RED CELL DISTRIBUTION WIDTH 16.7 % (11.6-14.6)
[2022-09-13 10:43] LABS: CHLORIDE 108 mEq/L (98-107)
[2022-09-13 12:01] LABS: PLATELET ESTIMATE NORMAL
[2022-09-13 14:41] LABS: HCG SCREEN NEGATIVE
[2022-09-13] MEDS ORDERED: ONDA4TAB50 MT (16:58)
[2022-09-13] MEDS ORDERED: OMEP40CA20 MT (16:58)
[2022-09-13 17:58] VITALS: BP 128/70
== END 2022-09-13 17:59 | disposition home or self-care (01) ==
LOC: ER 10:02
DX: R10.9 Unspecified abdominal pain (principal); F14.10 Cocaine abuse, uncomplicated; F12.10 Cannabis abuse, uncomplicated
CPT/HCPCS: 36415; 71045; 74176; 80053; 80320; 83690; 83880; 84484; 84703; 85025; 85610; 93005; 99285; Z7610; G0480

== ENCOUNTER 2022-09-21 07:16 | Emergency (ER) | payer MEDICAID ==
[~2022-09-21] VITALS: Ht 162.6 cm; Wt 91.0 kg
[~2022-09-21 07:16] MED LIST changes: +OMEP40CA20 MT; +ONDA4TAB50 MT
[2022-09-21 08:25] LABS: BASOPHILS % 0.8 % (0.0-2.0); EOSINOPHILS % 3.3 % (0.0-5.0); HEMATOCRIT. 33.4 % (36.0-48.0); HEMOGLOBIN. 10.7 g/dL (12.0-16.0); LYMPHOCYTES % 51.7 % (20.0-50.0); MEAN CORPUSCULAR HEMOGLOBIN 24.1 pg (28.0-32.0); MEAN CORPUSCULAR VOLUME 75.5 fL (81.0-99.0); MEAN PLATELET VOLUME 7.9 fl (7.4-10.4); NEUTROPHILS % 35.2 % (40.0-76.0); PLATELET 181 x1000/uL (130-400); RED BLOOD CELL COUNT 4.42 mill/uL (4.2-5.4); RED CELL DISTRIBUTION WIDTH 17.1 % (11.6-14.6)
[2022-09-21 08:32] LABS: CLARITY URINE CLEAR (CLEAR); COLOR URINE YELLOW (YELLOW); KETONES URINE NEGATIVE (NEGATIVE); LEUKOCYTE ESTERASE URINE NEGATIVE (NEGATIVE); NITRITE URINE NEGATIVE (NEGATIVE); OCCULT BLOOD URINE NEGATIVE (NEGATIVE); PH URINE 6.5 (4.5-8.0); PROTEIN URINE TRACE (NEGATIVE); SPECIFIC GRAVITY URINE 1.025 (1.005-1.030)
[2022-09-21 08:33] LABS: CHLORIDE 110 mEq/L (98-107)
[2022-09-21 08:59] LABS: HCG SCREEN NEGATIVE
[2022-09-21] MEDS ORDERED: TOPUD PO (09:12)
[2022-09-21 09:20] VITALS: BP 107/71
== END 2022-09-21 09:42 | disposition home or self-care (01) ==
LOC: ER 07:16
DX: R10.9 Unspecified abdominal pain (principal); I10 Essential (primary) hypertension; F12.10 Cannabis abuse, uncomplicated; F14.10 Cocaine abuse, uncomplicated; Z88.5 Allergy status to narcotic agent; Z98.890 Other specified postprocedural states
CPT/HCPCS: 36415; 80053; 81003; 81025; 84703; 85025; 93005; 99284

== ENCOUNTER 2022-09-26 20:28 | Emergency (ER) | payer MEDICAID ==
[~2022-09-26] VITALS: Ht 157.5 cm; Wt 90.0 kg
[~2022-09-26 20:28] MED LIST changes: +TOPUD PO
[2022-09-26 20:48] VITALS: BP 134/78
[2022-09-26 22:12] LABS: BASOPHILS % 0.3 % (0.0-2.0); EOSINOPHILS % 3.3 % (0.0-5.0); HEMATOCRIT. 33.8 % (36.0-48.0); HEMOGLOBIN. 10.9 g/dL (12.0-16.0); LYMPHOCYTES % 47.5 % (20.0-50.0); MEAN CORPUSCULAR HEMOGLOBIN 24.6 pg (28.0-32.0); MEAN PLATELET VOLUME 8.8 fl (7.4-10.4); MONOCYTES % 8.4 % (2.0-8.0); NEUTROPHILS % 40.5 % (40.0-76.0); PLATELET 199 x1000/uL (130-400); RED BLOOD CELL COUNT 4.44 mill/uL (4.2-5.4); RED CELL DISTRIBUTION WIDTH 17.2 % (11.6-14.6)
[2022-09-26 22:20] LABS: PROTHROMBIN TIME 10.3 sec (9.6-11.0)
[2022-09-26 22:22] LABS: CHLORIDE 110 mEq/L (98-107)
== END 2022-09-27 09:01 | disposition left against medical advice (07) ==
LOC: ER 20:28
DX: R07.89 Other chest pain (principal)
CPT/HCPCS: 36415; 71045; 80053; 83880; 84484; 85025; 93005; 99285

== ENCOUNTER 2022-10-07 23:06 | Emergency (ER) | payer MEDICAID ==
[~2022-10-07] VITALS: Ht 160 cm; Wt 91.0 kg
[2022-10-07 23:32] VITALS: BP 139/82
== END 2022-10-08 13:44 | disposition left against medical advice (07) ==
LOC: ER 23:06
DX: Z53.21 Procedure and treatment not carried out due to patient leaving prior to being seen by health care provider (principal)
CPT/HCPCS: 71045; 93005; 99281; 99283

== ENCOUNTER 2022-10-21 17:03 | Emergency (ER) | payer MEDICAID ==
[~2022-10-21] VITALS: Ht 162.6 cm; Wt 90.0 kg
[2022-10-21 17:06] VITALS: BP 130/62
[2022-10-21 17:50] LABS: BASOPHILS % 0.6 % (0.0-2.0); EOSINOPHILS % 3.5 % (0.0-5.0); HEMATOCRIT. 33.2 % (36.0-48.0); HEMOGLOBIN. 10.7 g/dL (12.0-16.0); LYMPHOCYTES % 50.8 % (20.0-50.0); MEAN CORPUSCULAR HEMOGLOBIN 24.8 pg (28.0-32.0); MEAN CORPUSCULAR VOLUME 76.8 fL (81.0-99.0); MEAN PLATELET VOLUME 8.6 fl (7.4-10.4); MONOCYTES % 9.5 % (2.0-8.0); NEUTROPHILS % 35.6 % (40.0-76.0); PLATELET 194 x1000/uL (130-400); RED BLOOD CELL COUNT 4.32 mill/uL (4.2-5.4); RED CELL DISTRIBUTION WIDTH 18.6 % (11.6-14.6)
[2022-10-21 17:58] LABS: PROTHROMBIN TIME 10.3 sec (9.6-11.0)
[2022-10-21 18:00] LABS: CHLORIDE 111 mEq/L (98-107)
== END 2022-10-21 20:20 | disposition left against medical advice (07) ==
LOC: ER 17:03
DX: R07.89 Other chest pain (principal)
CPT/HCPCS: 36415; 71045; 80053; 84484; 85025; 93005; 99281

== ENCOUNTER 2022-10-27 13:51 | Emergency (ER) | payer MEDICAID ==
[~2022-10-27] VITALS: Ht 160 cm; Wt 91.0 kg
[2022-10-27] MEDS ORDERED: ACETAMINOPHEN 325MG TABLET PO ONE (15:45)
[2022-10-27 16:43] LABS: CLARITY URINE CLEAR (CLEAR); COLOR URINE YELLOW (YELLOW); KETONES URINE TRACE (NEGATIVE); LEUKOCYTE ESTERASE URINE NEGATIVE (NEGATIVE); NITRITE URINE NEGATIVE (NEGATIVE); OCCULT BLOOD URINE NEGATIVE (NEGATIVE); PH URINE 5.5 (4.5-8.0); PROTEIN URINE NEGATIVE (NEGATIVE); SPECIFIC GRAVITY URINE 1.036 (1.005-1.030)
[2022-10-27 16:53] LABS: *AMPHETAMINES SCREEN URINE NEGATIVE (NEGATIVE); *BARBITURATES SCREEN URINE NEGATIVE (NEGATIVE); *BENZODIAZEPINES SCREEN URINE NEGATIVE (NEGATIVE); CANNABINOID URINE SCREEN NEGATIVE (NEGATIVE); METHADONE URINE SCREEN NEGATIVE (NEGATIVE); OPIATES URINE SCREEN NEGATIVE (NEGATIVE); PHENCYCLIDINE URINE SCREEN NEGATIVE (NEGATIVE)
[2022-10-27 16:57] LABS: BASOPHILS % 0.4 % (0.0-2.0); EOSINOPHILS % 3.2 % (0.0-5.0); HEMATOCRIT. 31.6 % (36.0-48.0); HEMOGLOBIN. 10.3 g/dL (12.0-16.0); LYMPHOCYTES % 52.2 % (20.0-50.0); MEAN CORPUSCULAR HEMOGLOBIN 25.2 pg (28.0-32.0); MEAN CORPUSCULAR VOLUME 77.4 fL (81.0-99.0); MEAN PLATELET VOLUME 8.8 fl (7.4-10.4); MONOCYTES % 13.1 % (2.0-8.0); NEUTROPHILS % 31.1 % (40.0-76.0); PLATELET 158 x1000/uL (130-400); RED BLOOD CELL COUNT 4.08 mill/uL (4.2-5.4); RED CELL DISTRIBUTION WIDTH 18.7 % (11.6-14.6)
[2022-10-27 17:07] LABS: CHLORIDE 109 mEq/L (98-107)
[2022-10-27 17:11] LABS: *COCAINE SCREEN URINE PRESUMTIVE POSITIVE (NEGATIVE)
[2022-10-27 17:14] LABS: HCG SCREEN NEGATIVE
[2022-10-27 17:20] LABS: ETHANOL BLOOD < 10 mg/dL
[2022-10-27] MEDS ORDERED: ACETAMINOPHEN 325MG TABLET PO NR (17:45)
[2022-10-27 18:20] VITALS: BP 112/58
== END 2022-10-27 19:42 | disposition home or self-care (01) ==
LOC: ER 13:51
DX: R07.89 Other chest pain (principal); R10.13 Epigastric pain; T40.5X1A Poisoning by cocaine, accidental (unintentional), initial encounter; Y92.89 Other specified places as the place of occurrence of the external cause; I10 Essential (primary) hypertension; F12.10 Cannabis abuse, uncomplicated; Z79.899 Other long term (current) drug therapy
CPT/HCPCS: 36415; 71045; 80053; 80305; 80320; 81003; 84484; 84703; 85025; 93005; 99285; G0480

== ENCOUNTER 2022-11-04 13:26 | Emergency (ER) | payer MEDICAID ==
[~2022-11-04] VITALS: Ht 165.1 cm; Wt 100.0 kg
[2022-11-04 13:33] VITALS: BP 103/53
[2022-11-04 14:55] LABS: BASOPHILS % 0.6 % (0.0-2.0); EOSINOPHILS % 3.3 % (0.0-5.0); HEMATOCRIT. 34.3 % (36.0-48.0); HEMOGLOBIN. 10.9 g/dL (12.0-16.0); LYMPHOCYTES % 56.8 % (20.0-50.0); MEAN CORPUSCULAR HEMOGLOBIN 24.8 pg (28.0-32.0); MEAN CORPUSCULAR VOLUME 77.9 fL (81.0-99.0); MEAN PLATELET VOLUME 8.3 fl (7.4-10.4); MONOCYTES % 10.3 % (2.0-8.0); PLATELET 183 x1000/uL (130-400); RED CELL DISTRIBUTION WIDTH 19.2 % (11.6-14.6)
[2022-11-04 15:03] LABS: CHLORIDE 108 mEq/L (98-107)
[2022-11-04 15:14] LABS: ETHANOL BLOOD < 10 mg/dL (-10)
== END 2022-11-04 18:44 | disposition home or self-care (01) ==
LOC: ER 13:26
DX: R07.89 Other chest pain (principal); F12.10 Cannabis abuse, uncomplicated; F14.10 Cocaine abuse, uncomplicated; I10 Essential (primary) hypertension; Z88.5 Allergy status to narcotic agent; Z79.899 Other long term (current) drug therapy
CPT/HCPCS: 36415; 71045; 80053; 80320; 84484; 85025; 93005; 99285; G0480

== ENCOUNTER 2022-11-09 08:31 | Emergency (ER) | payer MEDICAID ==
[~2022-11-09] VITALS: Ht 160 cm; Wt 91.0 kg
[2022-11-09 09:12] LABS: EOSINOPHILS % 1.9 % (0.0-5.0); HEMATOCRIT. 34.9 % (36.0-48.0); HEMOGLOBIN. 11.2 g/dL (12.0-16.0); LYMPHOCYTES % 39.2 % (20.0-50.0); MEAN CORPUSCULAR HEMOGLOBIN 25.2 pg (28.0-32.0); MEAN PLATELET VOLUME 8.3 fl (7.4-10.4); MONOCYTES % 7.9 % (2.0-8.0); PLATELET 185 x1000/uL (130-400); RED BLOOD CELL COUNT 4.47 mill/uL (4.2-5.4); RED CELL DISTRIBUTION WIDTH 19.2 % (11.6-14.6)
[2022-11-09 09:24] LABS: CHLORIDE 110 mEq/L (98-107)
[2022-11-09 11:28] VITALS: BP 140/81
[2022-11-09 15:19] LABS: CLARITY URINE TURBID (CLEAR); COLOR URINE YELLOW (YELLOW); KETONES URINE TRACE (NEGATIVE); LEUKOCYTE ESTERASE URINE 2+ (NEGATIVE); NITRITE URINE NEGATIVE (NEGATIVE); OCCULT BLOOD URINE NEGATIVE (NEGATIVE); PH URINE 8.5 (4.5-8.0); PROTEIN URINE 1+ (NEGATIVE); SPECIFIC GRAVITY URINE 1.029 (1.005-1.030); UROBILINOGEN URINE 0.2 E.U./dL (0.2-1.0)
== END 2022-11-09 16:45 | disposition home or self-care (01) ==
LOC: ER 08:31
DX: R07.89 Other chest pain (principal); R10.9 Unspecified abdominal pain; F14.10 Cocaine abuse, uncomplicated; F12.10 Cannabis abuse, uncomplicated; I10 Essential (primary) hypertension; Z88.5 Allergy status to narcotic agent; Z79.899 Other long term (current) drug therapy
CPT/HCPCS: 36415; 71045; 80053; 81003; 81025; 84484; 85025; 93005; 99285

== ENCOUNTER 2022-11-22 15:01 | Emergency (ER) | payer MEDICAID ==
[~2022-11-22] VITALS: Ht 160 cm; Wt 91.0 kg
[2022-11-22 16:06] VITALS: BP 134/73
[2022-11-23 00:28] LABS: BASOPHILS % 0.6 % (0.0-2.0); EOSINOPHILS % 3.4 % (0.0-5.0); HEMATOCRIT. 31.7 % (36.0-48.0); HEMOGLOBIN. 10.2 g/dL (12.0-16.0); LYMPHOCYTES % 53.5 % (20.0-50.0); MEAN CORPUSCULAR HEMOGLOBIN 25.3 pg (28.0-32.0); MEAN CORPUSCULAR VOLUME 78.4 fL (81.0-99.0); MEAN PLATELET VOLUME 8.4 fl (7.4-10.4); MONOCYTES % 8.7 % (2.0-8.0); NEUTROPHILS % 33.8 % (40.0-76.0); PLATELET 196 x1000/uL (130-400); RED BLOOD CELL COUNT 4.04 mill/uL (4.2-5.4)
[2022-11-23 00:41] LABS: CHLORIDE 111 mEq/L (98-107)
[2022-11-23 00:52] LABS: ETHANOL BLOOD < 10 mg/dL (-10)
[2022-11-23] MEDS ORDERED: MAG355OR21 MT (01:20)
[2022-11-23] MEDS ORDERED: ONDA4TAB50 MT (01:20)
[2022-11-23] MEDS ORDERED: PANTOPRAZOLE 40MG DR TABLET PO NR (01:30)
[2022-11-23] MEDS ORDERED: MAGNESIUM/ALUMINUM HYDROXIDE/SIMETHICONE 30ML UDC PO NR (01:30)
[2022-11-23 01:46] VITALS: PULSE 93; RESP 14; TEMP 98.9
[2022-11-23] MEDS ORDERED: TOPUD PO (07:50)
== END 2022-11-23 01:47 | disposition home or self-care (01) ==
LOC: ER 15:01
DX: K29.70 Gastritis, unspecified, without bleeding (principal); F10.10 Alcohol abuse, uncomplicated; F12.10 Cannabis abuse, uncomplicated; F14.10 Cocaine abuse, uncomplicated; F17.200 Nicotine dependence, unspecified, uncomplicated; I10 Essential (primary) hypertension; Z88.5 Allergy status to narcotic agent; Z98.890 Other specified postprocedural states; Z59.00 Homelessness unspecified; Y90.0 Blood alcohol level of less than 20 mg/100 ml
CPT/HCPCS: 36415; 71045; 74176; 80053; 80320; 83880; 84484; 85025; 93005; 99285; G0480

== ENCOUNTER 2022-11-23 06:38 | Emergency (ER) | payer MEDICAID ==
[~2022-11-23] VITALS: Ht 160 cm; Wt 91.0 kg
[~2022-11-23 06:38] MED LIST changes: +MAG355OR21 MT
[2022-11-23 06:45] VITALS: BP 128/77; PULSE 66; RESP 14; O2SAT 98
[2022-11-23 07:27] LABS: BASOPHILS % 0.6 % (0.0-2.0); EOSINOPHILS % 3.1 % (0.0-5.0); HEMATOCRIT. 31.9 % (36.0-48.0); HEMOGLOBIN. 10.4 g/dL (12.0-16.0); LYMPHOCYTES % 55.7 % (20.0-50.0); MEAN CORPUSCULAR HEMOGLOBIN 25.4 pg (28.0-32.0); MEAN CORPUSCULAR VOLUME 78.3 fL (81.0-99.0); MEAN PLATELET VOLUME 8.5 fl (7.4-10.4); NEUTROPHILS % 30.6 % (40.0-76.0); PLATELET 197 x1000/uL (130-400); RED BLOOD CELL COUNT 4.08 mill/uL (4.2-5.4); RED CELL DISTRIBUTION WIDTH 19.6 % (11.6-14.6)
[2022-11-23 07:30] LABS: CHLORIDE 111 mEq/L (98-107)
[2022-11-23] MEDS ORDERED: TOPUD PO (07:50)
[2022-11-23] MEDS ORDERED: ACETAMINOPHEN 325MG TABLET PO ONE (08:00)
[2022-11-23 08:01] VITALS: TEMP 98.4
== END 2022-11-23 08:01 | disposition home or self-care (01) ==
LOC: ER 06:38
DX: R07.89 Other chest pain (principal); F14.10 Cocaine abuse, uncomplicated; F12.10 Cannabis abuse, uncomplicated; I10 Essential (primary) hypertension; Z88.5 Allergy status to narcotic agent; Z79.899 Other long term (current) drug therapy; Z98.890 Other specified postprocedural states
CPT/HCPCS: 36415; 80053; 84484; 85025; 93005; 99284; Z7610

== ENCOUNTER 2022-12-04 08:13 | Emergency (ER) | payer MEDICAID ==
[~2022-12-04] VITALS: Ht 160 cm; Wt 91.0 kg
[2022-12-04 08:31] VITALS: BP 134/74; PULSE 71; RESP 18; TEMP 98.1; O2SAT 100
[2022-12-04 08:54] LABS: BASOPHILS % 0.9 % (0.0-2.0); HEMATOCRIT. 32.8 % (36.0-48.0); HEMOGLOBIN. 10.8 g/dL (12.0-16.0); LYMPHOCYTES % 42.9 % (20.0-50.0); MEAN CORPUSCULAR HEMOGLOBIN 25.8 pg (28.0-32.0); MEAN CORPUSCULAR VOLUME 78.3 fL (81.0-99.0); MEAN PLATELET VOLUME 8.6 fl (7.4-10.4); MONOCYTES % 8.2 % (2.0-8.0); PLATELET 167 x1000/uL (130-400); RED BLOOD CELL COUNT 4.18 mill/uL (4.2-5.4); RED CELL DISTRIBUTION WIDTH 18.2 % (11.6-14.6)
[2022-12-04 09:02] LABS: CHLORIDE 112 mEq/L (98-107)
== END 2022-12-04 10:19 | disposition home or self-care (01) ==
LOC: ER 08:13
DX: R07.89 Other chest pain (principal); I10 Essential (primary) hypertension; Z98.890 Other specified postprocedural states; F14.10 Cocaine abuse, uncomplicated; F12.10 Cannabis abuse, uncomplicated
CPT/HCPCS: 36415; 71045; 80053; 84484; 85025; 99284

== ENCOUNTER 2023-02-25 19:09 | Emergency (ER) | payer MEDICAID ==
[~2023-02-25] VITALS: Ht 160 cm; Wt 96.0 kg
[2023-02-25 19:54] LABS: BASOPHILS % 0.7 % (0.0-2.0); DIFFERENTIAL COMMENT 0; EOSINOPHILS % 2.6 % (0.0-5.0); HEMATOCRIT. 29.7 % (36.0-48.0); HEMOGLOBIN. 9.3 g/dL (12.0-16.0); LYMPHOCYTES % 58.1 % (20.0-50.0); MEAN CORPUSCULAR HEMOGLOBIN 24.7 pg (28.0-32.0); MEAN CORPUSCULAR HGB CONC 31.5 g/dL (31.0-37.0); MEAN CORPUSCULAR VOLUME 78.4 fL (81.0-99.0); MEAN PLATELET VOLUME 8.5 fl (7.4-10.4); MONOCYTES % 11.3 % (2.0-8.0); NEUTROPHILS % 27.3 % (40.0-76.0); PLATELET 168 x1000/uL (130-400); RED BLOOD CELL COUNT 3.79 mill/uL (4.2-5.4); RED CELL DISTRIBUTION WIDTH 16.1 % (11.6-14.6)
[2023-02-25 19:59] LABS: CHLORIDE 110 mEq/L (98-107); INDEX HEMOLYSI 1 (1-3); INDEX ICTERIC 1 (1-4); INDEX LIPEMIC 1 (1-3); POTASSIUM 3.5 mEq/L (3.5-5.1); SODIUM 139 mEq/L (136-145)
[2023-02-25 20:03] VITALS: O2SAT 100
[2023-02-25 20:12] LABS: ALANINE AMINOTRANSFERASE 34 IU/L (13-61); ALBUMIN 2.9 g/dL (3.4-5.0); ASPARTATE AMINOTRANSFERASE 21 IU/L (15-37); BILIRUBIN TOTAL 0.2 mg/dL (0.1-1.0); CALCIUM 8.1 mg/dL (8.5-10.1); CARBON DIOXIDE 24 mEq/L (21-32); CREATININE 0.5 mg/dL (0.6-1.3); ETHANOL BLOOD < 10 mg/dL (<10); GLUCOSE 103 mg/dL (70-105); PROTEIN TOTAL 6.8 g/dL (6.0-8.3); TROPONIN I HIGH SENSITIVITY 4 ng/L (<54); UREA NITROGEN BLOOD 10 mg/dL (7-21)
[2023-02-25] MEDS ORDERED: TOPUD PO (20:29)
[2023-02-25 20:49] VITALS: BP 149/77; PULSE 64; RESP 18; TEMP 98.9
[2023-02-25 21:11] LABS: NT PRO B-TYPE NATRIURETIC PEP 98 pg/mL (5-125)
== END 2023-02-25 20:52 | disposition home or self-care (01) ==
LOC: ER 19:09
DX: R07.89 Other chest pain (principal); R06.02 Shortness of breath; R05.9 Cough, unspecified; I10 Essential (primary) hypertension; F14.10 Cocaine abuse, uncomplicated; F12.10 Cannabis abuse, uncomplicated
CPT/HCPCS: 36415; 71045; 80053; 80320; 83880; 84484; 85025; 93005; 99285; G0480

== ENCOUNTER 2023-04-06 06:14 | Emergency (ER) | payer MEDICAID ==
[~2023-04-06] VITALS: Ht 160 cm; Wt 74.5 kg
[2023-04-06 06:23] VITALS: BP 130/86; PULSE 80; RESP 16; TEMP 98.7; O2SAT 99
[2023-04-06 07:19] LABS: BASOPHILS % 0.4 % (0.0-2.0); EOSINOPHILS % 3.1 % (0.0-5.0); HEMATOCRIT. 34.4 % (36.0-48.0); HEMOGLOBIN. 10.8 g/dL (12.0-16.0); LYMPHOCYTES % 50.8 % (20.0-50.0); MEAN CORPUSCULAR HEMOGLOBIN 25.1 pg (28.0-32.0); MEAN CORPUSCULAR HGB CONC 31.4 g/dL (31.0-37.0); MEAN PLATELET VOLUME 8.3 fl (7.4-10.4); MONOCYTES % 10.5 % (2.0-8.0); NEUTROPHILS % 35.2 % (40.0-76.0); PLATELET 185 x1000/uL (130-400); RED CELL DISTRIBUTION WIDTH 17.9 % (11.6-14.6); WHITE BLOOD COUNT 4.2 x1000/uL (4.5-11.0)
[2023-04-06 07:31] LABS: PARTIAL THROMBOPLASTIN TIME 25.4 sec (23.4-31.0); PROTHROMBIN TIME 10.7 sec (9.6-11.0)
[2023-04-06 07:45] LABS: CHLORIDE 111 mEq/L (98-107); INDEX HEMOLYSI 1 (1-3); INDEX ICTERIC 1 (1-4); INDEX LIPEMIC 1 (1-3); POTASSIUM 4.3 mEq/L (3.5-5.1); SODIUM 141 mEq/L (136-145)
[2023-04-06 07:46] LABS: HCG SCREEN NEGATIVE
[2023-04-06 08:05] LABS: ALANINE AMINOTRANSFERASE 47 IU/L (13-61); ALBUMIN 3.3 g/dL (3.4-5.0); ASPARTATE AMINOTRANSFERASE 31 IU/L (15-37); BILIRUBIN TOTAL 0.5 mg/dL (0.1-1.0); CALCIUM 8.6 mg/dL (8.5-10.1); CREATININE 0.7 mg/dL (0.6-1.3); GLUCOSE 77 mg/dL (70-105); NT PRO B-TYPE NATRIURETIC PEP 31 pg/mL (5-125); PROTEIN TOTAL 7.9 g/dL (6.0-8.3); TROPONIN I HIGH SENSITIVITY 5 ng/L (<54); UREA NITROGEN BLOOD 11 mg/dL (7-21)
[2023-04-06 11:56] LABS: CARBON DIOXIDE 22 mEq/L (21-32)
== END 2023-04-06 09:05 | disposition home or self-care (01) ==
LOC: ER 06:14
DX: R07.89 Other chest pain (principal); F12.10 Cannabis abuse, uncomplicated; F14.10 Cocaine abuse, uncomplicated; I10 Essential (primary) hypertension; Z88.5 Allergy status to narcotic agent; Z79.899 Other long term (current) drug therapy; Z98.890 Other specified postprocedural states
CPT/HCPCS: 36415; 71045; 80053; 83880; 84484; 84703; 85025; 93005; 99285

== ENCOUNTER 2023-04-24 21:18 | Emergency (ER) | payer MEDICAID ==
[~2023-04-24] VITALS: Ht 160 cm; Wt 75.1 kg
[2023-04-24 21:29] VITALS: BP 137/88; PULSE 80; RESP 16; TEMP 98.7; O2SAT 100
[2023-04-24 22:42] LABS: BASOPHILS % 0.7 % (0.0-2.0); EOSINOPHILS % 1.6 % (0.0-5.0); HEMATOCRIT. 30.7 % (36.0-48.0); HEMOGLOBIN. 9.6 g/dL (12.0-16.0); LYMPHOCYTES % 44.7 % (20.0-50.0); MEAN CORPUSCULAR HEMOGLOBIN 25.4 pg (28.0-32.0); MEAN CORPUSCULAR HGB CONC 31.4 g/dL (31.0-37.0); MEAN PLATELET VOLUME 8.8 fl (7.4-10.4); MONOCYTES % 10.8 % (2.0-8.0); NEUTROPHILS % 42.2 % (40.0-76.0); PLATELET 143 x1000/uL (130-400); RED BLOOD CELL COUNT 3.79 mill/uL (4.2-5.4); RED CELL DISTRIBUTION WIDTH 17.8 % (11.6-14.6)
[2023-04-24 22:53] LABS: HCG SCREEN NEGATIVE
[2023-04-24 22:54] LABS: PARTIAL THROMBOPLASTIN TIME 24.8 sec (23.4-31.0); PROTHROMBIN TIME 10.5 sec (9.6-11.0)
[2023-04-24 22:57] LABS: SODIUM 140 mEq/L (136-145)
[2023-04-24 22:58] LABS: ALANINE AMINOTRANSFERASE 75 IU/L (10-49); ALBUMIN 3.7 g/dL (3.2-4.8); ASPARTATE AMINOTRANSFERASE 45 IU/L (<34); BILIRUBIN TOTAL 0.2 mg/dL (0.1-1.0); CALCIUM 9.2 mg/dL (8.7-10.4); CARBON DIOXIDE 28 mEq/L (21-32); CHLORIDE 109 mEq/L (98-107); CREATININE 0.7 mg/dL (0.6-1.0); GLUCOSE 104 mg/dL (70-105); POTASSIUM 4.2 mEq/L (3.5-5.1); PROTEIN TOTAL 6.7 g/dL (6.0-8.3); TROPONIN I HIGH SENSITIVITY < 4 ng/L (3.0-34); UREA NITROGEN BLOOD 13 mg/dL (9-23)
[2023-04-24 23:48] LABS: CLARITY URINE CLEAR (CLEAR); COLOR URINE YELLOW (YELLOW); GLUCOSE URINE NEGATIVE (NEGATIVE); KETONES URINE NEGATIVE (NEGATIVE); LEUKOCYTE ESTERASE URINE TRACE (NEGATIVE); NITRITE URINE NEGATIVE (NEGATIVE); OCCULT BLOOD URINE NEGATIVE (NEGATIVE); PH URINE 6.5 (4.5-8.0); PROTEIN URINE NEGATIVE (NEGATIVE); SPECIFIC GRAVITY URINE 1.026 (1.005-1.030); UROBILINOGEN URINE 0.2 E.U./dL (0.2-1.0)
[2023-04-25 01:07] LABS: SQUAMOUS EPITHELIAL CELL URINE FEW /lpf (RARE/1+)
[2023-04-25 01:08] LABS: BACTERIA URINE NONE SEEN; RBC URINE 0-2 /hpf (0-2); WBC URINE 0-2 /hpf (0-2)
== END 2023-04-25 02:40 | disposition home or self-care (01) ==
LOC: ER 21:29
DX: R07.89 Other chest pain (principal); D64.9 Anemia, unspecified; F14.10 Cocaine abuse, uncomplicated; F12.10 Cannabis abuse, uncomplicated
CPT/HCPCS: 99285; 71045; 80053; 81003; 84703; 83880; 83690; 85025; 85610; 85730; 84484; 36415; 93005; A6261

== ENCOUNTER 2023-06-26 11:05 | Emergency (ER) | payer MEDICAID ==
[~2023-06-26] VITALS: Ht 165.1 cm; Wt 91.0 kg
[2023-06-26 11:13] VITALS: O2SAT 97
[2023-06-26] MEDS ORDERED: ACETAMINOPHEN 325MG TABLET PO ONE (11:30)
[2023-06-26 12:03] LABS: BASOPHILS % 0.4 % (0.0-2.0); EOSINOPHILS % 3.2 % (0.0-5.0); HEMATOCRIT. 35.5 % (36.0-48.0); HEMOGLOBIN. 11.1 g/dL (12.0-16.0); MEAN CORPUSCULAR HEMOGLOBIN 25.1 pg (28.0-32.0); MEAN CORPUSCULAR HGB CONC 31.3 g/dL (31.0-37.0); MEAN CORPUSCULAR VOLUME 80.2 fL (81.0-99.0); MEAN PLATELET VOLUME 8.7 fl (7.4-10.4); MONOCYTES % 8.6 % (2.0-8.0); NEUTROPHILS % 33.8 % (40.0-76.0); PLATELET 162 x1000/uL (130-400); RED BLOOD CELL COUNT 4.43 mill/uL (4.2-5.4); RED CELL DISTRIBUTION WIDTH 16.8 % (11.6-14.6); WHITE BLOOD COUNT 4.5 x1000/uL (4.5-11.0)
[2023-06-26 12:24] LABS: ALANINE AMINOTRANSFERASE 74 IU/L (10-49); ALBUMIN 3.6 g/dL (3.2-4.8); ASPARTATE AMINOTRANSFERASE 43 IU/L (<34); BILIRUBIN TOTAL 0.3 mg/dL (0.1-1.0); CALCIUM 9.1 mg/dL (8.7-10.4); CARBON DIOXIDE 25 mEq/L (21-32); CHLORIDE 107 mEq/L (98-107); CREATININE 0.7 mg/dL (0.6-1.0); GLUCOSE 101 mg/dL (70-105); POTASSIUM 4.2 mEq/L (3.5-5.1); PROTEIN TOTAL 7.4 g/dL (6.0-8.3); SODIUM 140 mEq/L (136-145); UREA NITROGEN BLOOD 19 mg/dL (9-23)
[2023-06-26 12:25] LABS: TROPONIN I HIGH SENSITIVITY < 4 ng/L (3.0-34)
[2023-06-26 12:37] LABS: HCG SCREEN NEGATIVE
[2023-06-26 14:20] VITALS: BP 138/83; PULSE 81; RESP 16; TEMP 98.1
== END 2023-06-26 16:23 | disposition left against medical advice (07) ==
LOC: ER 11:05
DX: R07.9 Chest pain, unspecified (principal); R10.9 Unspecified abdominal pain; F12.90 Cannabis use, unspecified, uncomplicated; F15.90 Other stimulant use, unspecified, uncomplicated; F10.10 Alcohol abuse, uncomplicated; Z88.5 Allergy status to narcotic agent; Z98.890 Other specified postprocedural states; Y90.9 Presence of alcohol in blood, level not specified
CPT/HCPCS: 80053; 84703; 83690; 85025; 84484; 36415; 71045; 93005; 99285; Z7610

== ENCOUNTER 2023-07-12 23:08 | Emergency (ER) | payer MEDICAID ==
[~2023-07-12] VITALS: Ht 160 cm; Wt 91.6 kg
[2023-07-12 23:22] VITALS: O2SAT 100
[2023-07-13 00:11] LABS: BASOPHILS % 0.6 % (0.0-2.0); EOSINOPHILS % 2.5 % (0.0-5.0); HEMATOCRIT. 34.9 % (36.0-48.0); HEMOGLOBIN. 11.1 g/dL (12.0-16.0); LYMPHOCYTES % 40.4 % (20.0-50.0); MEAN CORPUSCULAR HEMOGLOBIN 25.8 pg (28.0-32.0); MEAN CORPUSCULAR HGB CONC 31.7 g/dL (31.0-37.0); MEAN CORPUSCULAR VOLUME 81.3 fL (81.0-99.0); MEAN PLATELET VOLUME 8.6 fl (7.4-10.4); MONOCYTES % 6.6 % (2.0-8.0); NEUTROPHILS % 49.9 % (40.0-76.0); PLATELET 195 x1000/uL (130-400); RED BLOOD CELL COUNT 4.29 mill/uL (4.2-5.4); RED CELL DISTRIBUTION WIDTH 16.3 % (11.6-14.6); WHITE BLOOD COUNT 4.6 x1000/uL (4.5-11.0)
[2023-07-13 00:22] LABS: ALANINE AMINOTRANSFERASE 66 IU/L (10-49); ALBUMIN 4.2 g/dL (3.2-4.8); ASPARTATE AMINOTRANSFERASE 54 IU/L (<34); BILIRUBIN TOTAL 0.3 mg/dL (0.1-1.0); CALCIUM 9.2 mg/dL (8.7-10.4); CARBON DIOXIDE 25 mEq/L (21-32); CHLORIDE 106 mEq/L (98-107); CREATININE 0.6 mg/dL (0.6-1.0); GLUCOSE 131 mg/dL (70-105); POTASSIUM 3.6 mEq/L (3.5-5.1); PROTEIN TOTAL 7.6 g/dL (6.0-8.3); SODIUM 140 mEq/L (136-145); UREA NITROGEN BLOOD 19 mg/dL (9-23)
[2023-07-13 00:25] LABS: TROPONIN I HIGH SENSITIVITY < 4 ng/L (3.0-34)
[2023-07-13] MEDS ORDERED: FAMO-135 MT (04:31)
[2023-07-13 04:52] VITALS: BP 168/86; PULSE 98; RESP 16; TEMP 98.1
[2023-07-13 05:05] LABS: CLARITY URINE CLEAR (CLEAR); COLOR URINE YELLOW (YELLOW); GLUCOSE URINE NEGATIVE (NEGATIVE); KETONES URINE NEGATIVE (NEGATIVE); LEUKOCYTE ESTERASE URINE 2+ (NEGATIVE); NITRITE URINE NEGATIVE (NEGATIVE); OCCULT BLOOD URINE NEGATIVE (NEGATIVE); PH URINE 5.5 (4.5-8.0); PROTEIN URINE NEGATIVE (NEGATIVE); SPECIFIC GRAVITY URINE 1.021 (1.005-1.030); UROBILINOGEN URINE 0.2 E.U./dL (0.2-1.0)
[2023-07-13 05:21] LABS: BACTERIA URINE 1+; RBC URINE 0-2 /hpf (0-2); SQUAMOUS EPITHELIAL CELL URINE 1+ /lpf (RARE/1+)
== END 2023-07-13 04:54 | disposition home or self-care (01) ==
LOC: ER 23:08
DX: R07.9 Chest pain, unspecified (principal); I10 Essential (primary) hypertension; Z98.890 Other specified postprocedural states; Z88.5 Allergy status to narcotic agent
CPT/HCPCS: 36415; 71045; 80053; 81003; 84484; 85025; 87077; 87186; 93005; 99285

== ENCOUNTER 2023-07-23 03:18 | Emergency (ER) | payer MEDICAID ==
[~2023-07-23] VITALS: Ht 160 cm; Wt 91.0 kg
[~2023-07-23 03:18] MED LIST changes: +FAMO-135 MT
[2023-07-23 03:48] VITALS: O2SAT 98
[2023-07-23 07:16] LABS: ALANINE AMINOTRANSFERASE 42 IU/L (10-49); ALBUMIN 4.2 g/dL (3.2-4.8); ASPARTATE AMINOTRANSFERASE 28 IU/L (<34); BILIRUBIN TOTAL 0.4 mg/dL (0.1-1.0); CARBON DIOXIDE 26 mEq/L (21-32); CHLORIDE 106 mEq/L (98-107); CREATININE 0.6 mg/dL (0.6-1.0); GLUCOSE 74 mg/dL (70-105); POTASSIUM 4.1 mEq/L (3.5-5.1); SODIUM 138 mEq/L (136-145); UREA NITROGEN BLOOD 13 mg/dL (9-23)
[2023-07-23 07:18] LABS: TROPONIN I HIGH SENSITIVITY < 4 ng/L (3.0-34)
[2023-07-23 07:26] LABS: BASOPHILS % 1.4 % (0.0-2.0); EOSINOPHILS % 1.7 % (0.0-5.0); HEMATOCRIT. 36.7 % (36.0-48.0); HEMOGLOBIN. 11.8 g/dL (12.0-16.0); MEAN CORPUSCULAR VOLUME 81.1 fL (81.0-99.0); MEAN PLATELET VOLUME 8.8 fl (7.4-10.4); MONOCYTES % 9.3 % (2.0-8.0); NEUTROPHILS % 41.6 % (40.0-76.0); PLATELET 205 x1000/uL (130-400); RED BLOOD CELL COUNT 4.53 mill/uL (4.2-5.4); RED CELL DISTRIBUTION WIDTH 16.4 % (11.6-14.6); WHITE BLOOD COUNT 4.6 x1000/uL (4.5-11.0)
[2023-07-23] MEDS ORDERED: KETOROLAC 60MG/2ML VIAL IM ONE (08:15)
[2023-07-23 08:33] LABS: HCG SCREEN NEGATIVE
[2023-07-23] MEDS: KETOROLAC 60MG/2ML VIAL IM NR (10:00)
[2023-07-23 10:08] VITALS: BP 133/88; PULSE 78; RESP 19; TEMP 98.4
== END 2023-07-23 10:20 | disposition home or self-care (01) ==
LOC: ER 03:26
DX: R07.89 Other chest pain (principal); R10.9 Unspecified abdominal pain; I10 Essential (primary) hypertension; F14.10 Cocaine abuse, uncomplicated; F12.10 Cannabis abuse, uncomplicated; Z79.899 Other long term (current) drug therapy; Z98.890 Other specified postprocedural states
CPT/HCPCS: 80053; 81025; 84703; 83880; 83690; 85025; 84484; 36415; 71045; 93005; 96372; 99285; J1885; Z7610

== ENCOUNTER 2023-08-12 21:56 | Emergency (ER) | payer MEDICAID ==
[2023-08-13 01:23] LABS: BASOPHILS % 0.9 % (0.0-2.0); EOSINOPHILS % 2.3 % (0.0-5.0); HEMOGLOBIN. 11.8 g/dL (12.0-16.0); LYMPHOCYTES % 44.4 % (20.0-50.0); MEAN CORPUSCULAR HGB CONC 31.9 g/dL (31.0-37.0); MEAN CORPUSCULAR VOLUME 81.5 fL (81.0-99.0); MEAN PLATELET VOLUME 8.7 fl (7.4-10.4); MONOCYTES % 8.5 % (2.0-8.0); NEUTROPHILS % 43.9 % (40.0-76.0); PLATELET 176 x1000/uL (130-400); RED BLOOD CELL COUNT 4.54 mill/uL (4.2-5.4); RED CELL DISTRIBUTION WIDTH 16.5 % (11.6-14.6); WHITE BLOOD COUNT 4.7 x1000/uL (4.5-11.0)
[2023-08-13 01:37] LABS: ALANINE AMINOTRANSFERASE 47 IU/L (10-49); ALBUMIN 4.6 g/dL (3.2-4.8); ASPARTATE AMINOTRANSFERASE 31 IU/L (<34); BILIRUBIN TOTAL 0.3 mg/dL (0.1-1.0); CALCIUM 9.5 mg/dL (8.7-10.4); CARBON DIOXIDE 26 mEq/L (21-32); CHLORIDE 105 mEq/L (98-107); CREATININE 0.9 mg/dL (0.6-1.0); GLUCOSE 101 mg/dL (70-105); PROTEIN TOTAL 8.6 g/dL (6.0-8.3); SODIUM 138 mEq/L (136-145); UREA NITROGEN BLOOD 22 mg/dL (9-23)
[2023-08-13 01:40] LABS: TROPONIN I HIGH SENSITIVITY < 4 ng/L (3.0-34)
[2023-08-13 01:42] LABS: HCG SCREEN NEGATIVE
[2023-08-13 05:21] VITALS: BP 148/101; PULSE 76; RESP 16; TEMP 98.1
== END 2023-08-13 05:43 | disposition home or self-care (01) ==
LOC: ER 21:56
DX: R07.89 Other chest pain (principal); R10.9 Unspecified abdominal pain; I10 Essential (primary) hypertension; F14.10 Cocaine abuse, uncomplicated; F12.10 Cannabis abuse, uncomplicated; Z79.899 Other long term (current) drug therapy; Z98.890 Other specified postprocedural states
CPT/HCPCS: 36415; 71045; 80053; 84484; 84703; 85025; 93005; 99284

== ENCOUNTER 2023-08-26 21:01 | Emergency (ER) | payer MEDICAID ==
[~2023-08-26] VITALS: Ht 160 cm; Wt 91.0 kg
[2023-08-26 21:58] VITALS: BP 126/84; PULSE 77; RESP 15; TEMP 98.1; O2SAT 98
[2023-08-26 23:22] LABS: BASOPHILS % 0.4 % (0.0-2.0); EOSINOPHILS % 3.5 % (0.0-5.0); HEMATOCRIT. 32.3 % (36.0-48.0); HEMOGLOBIN. 10.4 g/dL (12.0-16.0); LYMPHOCYTES % 54.1 % (20.0-50.0); MEAN CORPUSCULAR HEMOGLOBIN 26.5 pg (28.0-32.0); MEAN CORPUSCULAR VOLUME 82.7 fL (81.0-99.0); MEAN PLATELET VOLUME 8.5 fl (7.4-10.4); MONOCYTES % 10.2 % (2.0-8.0); NEUTROPHILS % 31.8 % (40.0-76.0); PLATELET 173 x1000/uL (130-400); RED BLOOD CELL COUNT 3.91 mill/uL (4.2-5.4); WHITE BLOOD COUNT 4.5 x1000/uL (4.5-11.0)
[2023-08-26 23:29] LABS: ALANINE AMINOTRANSFERASE 27 IU/L (10-49); ALBUMIN 3.7 g/dL (3.2-4.8); ASPARTATE AMINOTRANSFERASE 26 IU/L (<34); BILIRUBIN TOTAL 0.3 mg/dL (0.1-1.0); CALCIUM 8.7 mg/dL (8.7-10.4); CARBON DIOXIDE 29 mEq/L (21-32); CHLORIDE 110 mEq/L (98-107); CREATININE 0.7 mg/dL (0.6-1.0); GLUCOSE 125 mg/dL (70-105); POTASSIUM 3.9 mEq/L (3.5-5.1); PROTEIN TOTAL 7.1 g/dL (6.0-8.3); SODIUM 141 mEq/L (136-145); UREA NITROGEN BLOOD 15 mg/dL (9-23)
[2023-08-27 00:04] LABS: TROPONIN I HIGH SENSITIVITY < 4 ng/L (3.0-34)
[2023-08-27 00:37] LABS: HCG SCREEN NEGATIVE
[2023-08-27] MEDS: KETOROLAC 60MG/2ML VIAL IM NR (03:20)
== END 2023-08-27 03:23 | disposition home or self-care (01) ==
LOC: ER 21:01
DX: R07.89 Other chest pain (principal); R10.9 Unspecified abdominal pain; F10.10 Alcohol abuse, uncomplicated; F14.10 Cocaine abuse, uncomplicated; F12.10 Cannabis abuse, uncomplicated; Z98.890 Other specified postprocedural states; Z79.899 Other long term (current) drug therapy
CPT/HCPCS: 36415; 71045; 80053; 84484; 84703; 85025; 93005; 99285; J1885

== ENCOUNTER 2023-09-02 20:07 | Emergency (ER) | payer MEDICAID ==
[~2023-09-02] VITALS: Ht 162.6 cm; Wt 91.0 kg
[2023-09-02 20:18] VITALS: BP 122/84; PULSE 87; RESP 16; TEMP 97.5; O2SAT 98
[2023-09-02 21:24] LABS: BASOPHILS % 0.8 % (0.0-2.0); EOSINOPHILS % 1.8 % (0.0-5.0); HEMOGLOBIN. 11.6 g/dL (12.0-16.0); MEAN CORPUSCULAR HEMOGLOBIN 27.2 pg (28.0-32.0); MEAN CORPUSCULAR HGB CONC 33.2 g/dL (31.0-37.0); MEAN CORPUSCULAR VOLUME 82.1 fL (81.0-99.0); MEAN PLATELET VOLUME 8.8 fl (7.4-10.4); MONOCYTES % 7.3 % (2.0-8.0); NEUTROPHILS % 35.1 % (40.0-76.0); PLATELET 166 x1000/uL (130-400); RED BLOOD CELL COUNT 4.26 mill/uL (4.2-5.4); RED CELL DISTRIBUTION WIDTH 16.1 % (11.6-14.6); WHITE BLOOD COUNT 4.4 x1000/uL (4.5-11.0)
[2023-09-02 21:31] LABS: HCG SCREEN NEGATIVE
[2023-09-02 21:37] LABS: ALANINE AMINOTRANSFERASE 33 IU/L (10-49); ALBUMIN 4.3 g/dL (3.2-4.8); ASPARTATE AMINOTRANSFERASE 30 IU/L (<34); BILIRUBIN TOTAL 0.4 mg/dL (0.1-1.0); CALCIUM 9.1 mg/dL (8.7-10.4); CARBON DIOXIDE 23 mEq/L (21-32); CHLORIDE 106 mEq/L (98-107); CREATININE 0.7 mg/dL (0.6-1.0); GLUCOSE 84 mg/dL (70-105); POTASSIUM 3.9 mEq/L (3.5-5.1); PROTEIN TOTAL 7.9 g/dL (6.0-8.3); SODIUM 136 mEq/L (136-145); TROPONIN I HIGH SENSITIVITY < 4 ng/L (3.0-34); UREA NITROGEN BLOOD 15 mg/dL (9-23)
[2023-09-03 00:01] LABS: TROPONIN I HIGH SENSITIVITY < 4 ng/L (3.0-34)
== END 2023-09-03 01:34 | disposition home or self-care (01) ==
LOC: ER 20:07
DX: R07.89 Other chest pain (principal); I10 Essential (primary) hypertension; F14.10 Cocaine abuse, uncomplicated; F12.10 Cannabis abuse, uncomplicated; Z98.890 Other specified postprocedural states; Z79.899 Other long term (current) drug therapy
CPT/HCPCS: 36415; 71045; 80053; 84484; 84703; 85025; 93005; 99284

== ENCOUNTER 2023-10-17 10:49 | Emergency (ER) | payer MEDICAID ==
[~2023-10-17] VITALS: Ht 160 cm; Wt 90.0 kg
[2023-10-17 10:54] VITALS: BP 108/66; PULSE 77; RESP 16; TEMP 98.9; O2SAT 100
[2023-10-17 11:48] LABS: BASOPHILS % 0.6 % (0.0-2.0); EOSINOPHILS % 2.4 % (0.0-5.0); HEMATOCRIT. 35.6 % (36.0-48.0); HEMOGLOBIN. 11.2 g/dL (12.0-16.0); LYMPHOCYTES % 52.5 % (20.0-50.0); MEAN CORPUSCULAR HEMOGLOBIN 26.1 pg (28.0-32.0); MEAN CORPUSCULAR HGB CONC 31.3 g/dL (31.0-37.0); MEAN CORPUSCULAR VOLUME 83.4 fL (81.0-99.0); MEAN PLATELET VOLUME 8.8 fl (7.4-10.4); MONOCYTES % 8.8 % (2.0-8.0); NEUTROPHILS % 35.7 % (40.0-76.0); PLATELET 179 x1000/uL (130-400); RED BLOOD CELL COUNT 4.27 mill/uL (4.2-5.4); RED CELL DISTRIBUTION WIDTH 16.4 % (11.6-14.6); WHITE BLOOD COUNT 4.3 x1000/uL (4.5-11.0)
[2023-10-17 11:56] LABS: HCG SCREEN NEGATIVE
[2023-10-17 12:20] LABS: CHLORIDE 109 mEq/L (98-107); POTASSIUM 4.1 mEq/L (3.5-5.1); SODIUM 139 mEq/L (136-145)
[2023-10-17 12:21] LABS: CARBON DIOXIDE 24 mEq/L (21-32)
[2023-10-17 12:22] LABS: CALCIUM 9.6 mg/dL (8.7-10.4)
[2023-10-17 12:26] LABS: CREATININE 0.6 mg/dL (0.6-1.0); GLUCOSE 108 mg/dL (70-105)
[2023-10-17 12:27] LABS: UREA NITROGEN BLOOD 8 mg/dL (9-23)
[2023-10-17 12:28] LABS: ALANINE AMINOTRANSFERASE 29 IU/L (10-49); ALBUMIN 3.6 g/dL (3.2-4.8); ASPARTATE AMINOTRANSFERASE 25 IU/L (<34)
[2023-10-17 12:29] LABS: BILIRUBIN TOTAL 0.3 mg/dL (0.1-1.0); PROTEIN TOTAL 6.8 g/dL (6.0-8.3)
[2023-10-17 12:30] LABS: BILIRUBIN DIRECT < 0.1 mg/dL (<=3.0)
[2023-10-17 12:31] LABS: TROPONIN I HIGH SENSITIVITY < 4 ng/L (3.0-34)
== END 2023-10-17 15:22 | disposition left against medical advice (07) ==
LOC: ER 10:49
DX: R07.9 Chest pain, unspecified (principal); Z53.21 Procedure and treatment not carried out due to patient leaving prior to being seen by health care provider
CPT/HCPCS: 36415; 80048; 80076; 84484; 84703; 85025

== ENCOUNTER 2023-10-31 12:05 | Emergency (ER) | payer MEDICAID ==
[~2023-10-31] VITALS: Ht 160 cm; Wt 91.0 kg
[2023-10-31 12:19] VITALS: BP 127/68; RESP 18; TEMP 99; O2SAT 99
[2023-10-31 12:20] VITALS: PULSE 89
[2023-10-31 14:43] LABS: BASOPHILS % 0.5 % (0.0-2.0); DIFFERENTIAL COMMENT 0; EOSINOPHILS % 2.3 % (0.0-5.0); HEMOGLOBIN. 11.7 g/dL (12.0-16.0); LYMPHOCYTES % 54.2 % (20.0-50.0); MEAN CORPUSCULAR HEMOGLOBIN 26.8 pg (28.0-32.0); MEAN CORPUSCULAR HGB CONC 33.5 g/dL (31.0-37.0); MEAN CORPUSCULAR VOLUME 79.9 fL (81.0-99.0); MEAN PLATELET VOLUME 8.6 fl (7.4-10.4); MONOCYTES % 9.9 % (2.0-8.0); NEUTROPHILS % 33.1 % (40.0-76.0); PLATELET 205 x1000/uL (130-400); RED BLOOD CELL COUNT 4.38 mill/uL (4.2-5.4); RED CELL DISTRIBUTION WIDTH 14.9 % (11.6-14.6); WHITE BLOOD COUNT 5.7 x1000/uL (4.5-11.0)
[2023-10-31 14:48] LABS: CHLORIDE 107 mEq/L (98-107); POTASSIUM 3.6 mEq/L (3.5-5.1); SODIUM 137 mEq/L (136-145)
[2023-10-31 14:49] LABS: CARBON DIOXIDE 25 mEq/L (21-32)
[2023-10-31 14:50] LABS: CALCIUM 9.2 mg/dL (8.7-10.4)
[2023-10-31 14:54] LABS: CREATININE 0.7 mg/dL (0.6-1.0); GLUCOSE 92 mg/dL (70-105); UREA NITROGEN BLOOD 13 mg/dL (9-23)
[2023-10-31 14:58] LABS: TROPONIN I HIGH SENSITIVITY < 4 ng/L (3.0-34)
== END 2023-10-31 17:14 | disposition left against medical advice (07) ==
LOC: ER 12:05
DX: R06.02 Shortness of breath (principal); Z53.21 Procedure and treatment not carried out due to patient leaving prior to being seen by health care provider
CPT/HCPCS: 36415; 71045; 80048; 84484; 85025; 93005

== ENCOUNTER 2023-11-04 13:27 | Emergency (ER) | payer MEDICAID ==
[~2023-11-04] VITALS: Ht 172.7 cm; Wt 104.0 kg
[2023-11-04 13:34] VITALS: BP 123/69; RESP 20; TEMP 98.6; O2SAT 100
[2023-11-04 13:39] VITALS: PULSE 98
== END 2023-11-04 22:25 | disposition left against medical advice (07) ==
LOC: ER 13:27
DX: R10.13 Epigastric pain (principal); R07.89 Other chest pain; R11.2 Nausea with vomiting, unspecified; I10 Essential (primary) hypertension; F14.10 Cocaine abuse, uncomplicated; F12.10 Cannabis abuse, uncomplicated; Z98.890 Other specified postprocedural states; Z79.899 Other long term (current) drug therapy
CPT/HCPCS: 93005; 99283

== ENCOUNTER 2023-11-06 20:05 | Emergency (ER) | payer MEDICAID ==
[~2023-11-06] VITALS: Ht 160 cm; Wt 90.0 kg
[2023-11-06 20:27] VITALS: BP 117/74; PULSE 88; RESP 18; TEMP 98; O2SAT 98
== END 2023-11-06 21:00 | disposition left against medical advice (07) ==
LOC: ER 20:05
DX: R07.89 Other chest pain (principal); Z53.21 Procedure and treatment not carried out due to patient leaving prior to being seen by health care provider
CPT/HCPCS: 71045; 93005

== ENCOUNTER 2023-11-30 19:18 | Emergency (ER) | payer MEDICAID ==
[~2023-11-30] VITALS: Ht 160 cm; Wt 91.0 kg
[2023-11-30 19:34] VITALS: BP 119/74; PULSE 77; RESP 18; TEMP 97.8; O2SAT 99
[2023-11-30 20:19] LABS: BASOPHILS % 0.8 % (0.0-2.0); EOSINOPHILS % 3.3 % (0.0-5.0); HEMOGLOBIN. 10.9 g/dL (12.0-16.0); LYMPHOCYTES % 54.4 % (20.0-50.0); MEAN CORPUSCULAR HEMOGLOBIN 25.7 pg (28.0-32.0); MEAN CORPUSCULAR VOLUME 80.2 fL (81.0-99.0); MEAN PLATELET VOLUME 8.6 fl (7.4-10.4); MONOCYTES % 9.8 % (2.0-8.0); NEUTROPHILS % 31.7 % (40.0-76.0); PLATELET 194 x1000/uL (130-400); RED BLOOD CELL COUNT 4.25 mill/uL (4.2-5.4); RED CELL DISTRIBUTION WIDTH 14.7 % (11.6-14.6); WHITE BLOOD COUNT 4.8 x1000/uL (4.5-11.0)
[2023-11-30 20:31] LABS: TROPONIN I HIGH SENSITIVITY < 4 ng/L (3.0-34)
== END 2023-12-01 01:59 | disposition left against medical advice (07) ==
LOC: ER 19:18
DX: R07.89 Other chest pain (principal); Z53.21 Procedure and treatment not carried out due to patient leaving prior to being seen by health care provider
CPT/HCPCS: 36415; 71045; 84484; 85025; 93005

== ENCOUNTER 2023-12-17 21:53 | Emergency (ER) | payer MEDICAID ==
[~2023-12-17] VITALS: Ht 160 cm; Wt 91.0 kg
[2023-12-17 22:00] VITALS: BP 135/83; PULSE 91; RESP 16; TEMP 98.3; O2SAT 98
[2023-12-17 22:56] LABS: BASOPHILS % 0.6 % (0.0-2.0); EOSINOPHILS % 3.2 % (0.0-5.0); HEMATOCRIT. 31.8 % (36.0-48.0); HEMOGLOBIN. 10.1 g/dL (12.0-16.0); MEAN CORPUSCULAR HEMOGLOBIN 25.5 pg (28.0-32.0); MEAN CORPUSCULAR HGB CONC 31.7 g/dL (31.0-37.0); MEAN CORPUSCULAR VOLUME 80.3 fL (81.0-99.0); MONOCYTES % 9.4 % (2.0-8.0); NEUTROPHILS % 36.8 % (40.0-76.0); PLATELET 171 x1000/uL (130-400); RED BLOOD CELL COUNT 3.96 mill/uL (4.2-5.4); RED CELL DISTRIBUTION WIDTH 15.1 % (11.6-14.6)
[2023-12-17 22:59] LABS: CHLORIDE 106 mEq/L (98-107); POTASSIUM 3.6 mEq/L (3.5-5.1); SODIUM 139 mEq/L (136-145)
[2023-12-17 23:00] LABS: CALCIUM 9.6 mg/dL (8.7-10.4); CARBON DIOXIDE 28 mEq/L (21-32)
[2023-12-17 23:05] LABS: CREATININE 0.7 mg/dL (0.6-1.0); GLUCOSE 94 mg/dL (70-105); UREA NITROGEN BLOOD 18 mg/dL (9-23)
[2023-12-17 23:17] LABS: TROPONIN I HIGH SENSITIVITY < 4 ng/L (3.0-34)
[2023-12-18] MEDS ORDERED: IBUPROFEN 600MG TABLET PO ONE (01:00)
== END 2023-12-18 01:17 | disposition home or self-care (01) ==
LOC: ER 21:53
DX: R07.89 Other chest pain (principal); R06.02 Shortness of breath; F14.10 Cocaine abuse, uncomplicated; F12.10 Cannabis abuse, uncomplicated; Z79.899 Other long term (current) drug therapy; Z98.890 Other specified postprocedural states
CPT/HCPCS: 36415; 71045; 80048; 84484; 85025; 93005; 99285

== ENCOUNTER 2024-01-08 21:23 | Emergency (ER) | payer MEDICAID ==
[~2024-01-08] VITALS: Ht 160 cm; Wt 91.0 kg
[2024-01-08 21:44] VITALS: BP 142/82; PULSE 76; RESP 20; TEMP 98.3; O2SAT 100
== END 2024-01-09 02:31 | disposition left against medical advice (07) ==
LOC: ER 21:23
DX: R07.89 Other chest pain (principal); Z53.21 Procedure and treatment not carried out due to patient leaving prior to being seen by health care provider
CPT/HCPCS: 71045

== ENCOUNTER 2024-01-17 12:45 | Emergency (ER) | payer MEDICAID ==
[~2024-01-17] VITALS: Ht 160 cm; Wt 90.7 kg
[2024-01-17 13:08] VITALS: BP 147/75; RESP 18; O2SAT 99
[2024-01-17 13:13] VITALS: PULSE 81
== END 2024-01-17 14:25 | disposition left against medical advice (07) ==
LOC: ER 12:45
DX: R07.9 Chest pain, unspecified (principal); F14.10 Cocaine abuse, uncomplicated; F12.10 Cannabis abuse, uncomplicated; I10 Essential (primary) hypertension; Z88.5 Allergy status to narcotic agent; Z79.899 Other long term (current) drug therapy
CPT/HCPCS: 36415; 71045; 86850; 86900; 93005; 99283

== ENCOUNTER 2024-02-04 20:19 | Emergency (ER) | payer MEDICAID ==
[~2024-02-04] VITALS: Ht 167.6 cm; Wt 91.0 kg
[2024-02-04 20:29] VITALS: O2SAT 98
[2024-02-04 20:30] VITALS: BP 158/60; PULSE 80; RESP 15; TEMP 37.00296; O2SAT 98
[2024-02-04 21:39] LABS: BASOPHILS % 0.6 % (0.0-2.0); DIFFERENTIAL COMMENT 0; EOSINOPHILS % 3.7 % (0.0-5.0); HEMATOCRIT. 31.6 % (36.0-48.0); HEMOGLOBIN. 9.8 g/dL (12.0-16.0); LYMPHOCYTES % 50.9 % (20.0-50.0); MEAN CORPUSCULAR HEMOGLOBIN 24.2 pg (28.0-32.0); MEAN CORPUSCULAR HGB CONC 30.9 g/dL (31.0-37.0); MEAN CORPUSCULAR VOLUME 78.1 fL (81.0-99.0); MEAN PLATELET VOLUME 8.6 fl (7.4-10.4); MONOCYTES % 10.2 % (2.0-8.0); NEUTROPHILS % 34.6 % (40.0-76.0); PLATELET 180 x1000/uL (130-400); RED BLOOD CELL COUNT 4.04 mill/uL (4.2-5.4); RED CELL DISTRIBUTION WIDTH 16.1 % (11.6-14.6); WHITE BLOOD COUNT 3.7 x1000/uL (4.5-11.0)
[2024-02-04 21:45] LABS: CHLORIDE 109 mEq/L (98-107); POTASSIUM 3.5 mEq/L (3.5-5.1); SODIUM 140 mEq/L (136-145)
[2024-02-04 21:46] LABS: CALCIUM 8.8 mg/dL (8.7-10.4); CARBON DIOXIDE 27 mEq/L (21-32)
[2024-02-04 21:51] LABS: CREATININE 0.6 mg/dL (0.6-1.0); GLUCOSE 102 mg/dL (70-105); UREA NITROGEN BLOOD 11 mg/dL (9-23)
[2024-02-04 21:52] LABS: TROPONIN I HIGH SENSITIVITY < 4 ng/L (3.0-34)
== END 2024-02-04 23:07 | disposition home or self-care (01) ==
LOC: ER 20:19
DX: R07.89 Other chest pain (principal); I10 Essential (primary) hypertension; F14.10 Cocaine abuse, uncomplicated; F12.10 Cannabis abuse, uncomplicated; Z79.899 Other long term (current) drug therapy
CPT/HCPCS: 36415; 80048; 84484; 85025; 93005; 99284

== ENCOUNTER 2024-05-22 21:18 | Emergency (ER) | payer MEDICAID ==
[~2024-05-22] VITALS: Ht 160 cm; Wt 91.0 kg
[2024-05-22 21:22] VITALS: O2SAT 100
[2024-05-22 21:32] VITALS: TEMP 98.5; O2SAT 99
[2024-05-23 00:06] LABS: BASOPHILS % 0.9 % (0.0-2.0); DIFFERENTIAL COMMENT 0; EOSINOPHILS % 2.8 % (0.0-5.0); HEMATOCRIT. 32.8 % (36.0-48.0); HEMOGLOBIN. 10.2 g/dL (12.0-16.0); LYMPHOCYTES % 58.2 % (20.0-50.0); MEAN CORPUSCULAR HGB CONC 31.1 g/dL (31.0-37.0); MEAN CORPUSCULAR VOLUME 77.4 fL (81.0-99.0); MEAN PLATELET VOLUME 8.3 fl (7.4-10.4); MONOCYTES % 8.9 % (2.0-8.0); NEUTROPHILS % 29.2 % (40.0-76.0); PLATELET 169 x1000/uL (130-400); RED BLOOD CELL COUNT 4.24 mill/uL (4.2-5.4); RED CELL DISTRIBUTION WIDTH 17.8 % (11.6-14.6)
[2024-05-23 00:11] LABS: CHLORIDE 110 mEq/L (98-107); POTASSIUM 3.9 mEq/L (3.5-5.1); SODIUM 144 mEq/L (136-145)
[2024-05-23 00:12] LABS: CALCIUM 8.8 mg/dL (8.7-10.4); CARBON DIOXIDE 26 mEq/L (21-32)
[2024-05-23 00:18] LABS: UREA NITROGEN BLOOD 11 mg/dL (9-23)
[2024-05-23 00:19] LABS: ALANINE AMINOTRANSFERASE 26 IU/L (10-49); ALBUMIN 3.9 g/dL (3.2-4.8); ASPARTATE AMINOTRANSFERASE 24 IU/L (<34); BILIRUBIN TOTAL 0.3 mg/dL (0.1-1.0); PROTEIN TOTAL 7.1 g/dL (6.0-8.3)
[2024-05-23 00:35] LABS: CREATININE 0.8 mg/dL (0.6-1.0); GLUCOSE 109 mg/dL (70-105)
[2024-05-23 00:43] LABS: BILIRUBIN DIRECT < 0.1 mg/dL (<=3.0); TROPONIN I HIGH SENSITIVITY < 4 ng/L (3.0-34)
[2024-05-23 05:22] VITALS: BP 114/55; PULSE 87; RESP 18
[2024-05-23] MEDS: IBUPROFEN 400MG TABLET PO ONE (05:22)
[2024-05-23] MEDS: MAGNESIUM/ALUMINUM HYDROXIDE/SIMETHICONE 30ML UDC PO ONE (05:23)
== END 2024-05-23 08:09 | disposition home or self-care (01) ==
LOC: ER 21:18
DX: R07.9 Chest pain, unspecified (principal); I10 Essential (primary) hypertension; F14.90 Cocaine use, unspecified, uncomplicated; F12.90 Cannabis use, unspecified, uncomplicated; F10.90 Alcohol use, unspecified, uncomplicated; Z79.899 Other long term (current) drug therapy; Z87.19 Personal history of other diseases of the digestive system; Z88.5 Allergy status to narcotic agent; Y90.9 Presence of alcohol in blood, level not specified; Z98.890 Other specified postprocedural states
CPT/HCPCS: 80076; 80048; 85025; 84484; 36415; 71045; 93005; 99285; Z7610

== ENCOUNTER 2024-05-29 23:54 | Emergency (ER) | payer MEDICAID ==
[~2024-05-29] VITALS: Ht 160 cm; Wt 91.0 kg
[2024-05-30 00:16] VITALS: O2SAT 99
[2024-05-30 01:56] LABS: HEMATOCRIT. 34.2 % (36.0-48.0); HEMOGLOBIN. 10.6 g/dL (12.0-16.0); MEAN CORPUSCULAR HGB CONC 31.1 g/dL (31.0-37.0); MEAN CORPUSCULAR VOLUME 77.2 fL (81.0-99.0); MEAN PLATELET VOLUME 8.2 fl (7.4-10.4); PLATELET 193 x1000/uL (130-400); RED BLOOD CELL COUNT 4.43 mill/uL (4.2-5.4); RED CELL DISTRIBUTION WIDTH 17.6 % (11.6-14.6); WHITE BLOOD COUNT 3.8 x1000/uL (4.5-11.0)
[2024-05-30 01:58] LABS: CHLORIDE 106 mEq/L (98-107); POTASSIUM 3.9 mEq/L (3.5-5.1); SODIUM 140 mEq/L (136-145)
[2024-05-30 01:59] LABS: CALCIUM 9.2 mg/dL (8.7-10.4); CARBON DIOXIDE 26 mEq/L (21-32)
[2024-05-30 02:04] LABS: CREATININE 0.6 mg/dL (0.6-1.0); GLUCOSE 90 mg/dL (70-105); UREA NITROGEN BLOOD 11 mg/dL (9-23)
[2024-05-30 02:09] LABS: DIFFERENTIAL COMMENT 1
[2024-05-30 02:18] LABS: TROPONIN I HIGH SENSITIVITY < 4 ng/L (3.0-34)
[2024-05-30 04:03] LABS: ATYPICAL LYMPHOCYTES 12
[2024-05-30 04:04] LABS: ANISOCYTOSIS 1+; HYPOCHROMASIA 1+; MICROCYTOSIS 1+; PLATELET ESTIMATE NORMAL
[2024-05-30] MEDS ORDERED: MAGNESIUM/ALUMINUM HYDROXIDE/SIMETHICONE 30ML UDC PO ONE (05:30)
[2024-05-30 05:49] VITALS: BP 145/82; PULSE 86; RESP 16; TEMP 36.66960; O2SAT 99
== END 2024-05-30 05:51 | disposition home or self-care (01) ==
LOC: ER 23:54
DX: R07.89 Other chest pain (principal); I10 Essential (primary) hypertension; F10.90 Alcohol use, unspecified, uncomplicated; F12.90 Cannabis use, unspecified, uncomplicated; F14.90 Cocaine use, unspecified, uncomplicated; Z87.19 Personal history of other diseases of the digestive system; Z79.899 Other long term (current) drug therapy; Z88.5 Allergy status to narcotic agent; K85.90 Acute pancreatitis without necrosis or infection, unspecified; Z59.00 Homelessness unspecified; Z98.890 Other specified postprocedural states; Y90.9 Presence of alcohol in blood, level not specified
CPT/HCPCS: 36415; 71045; 80048; 83880; 84484; 85025; 93005; 99285

== ENCOUNTER 2024-07-07 12:04 | Emergency (ER) | payer MEDICAID ==
[~2024-07-07] VITALS: Ht 162.6 cm; Wt 78.0 kg
[2024-07-07 12:06] VITALS: O2SAT 100
[2024-07-07 12:10] VITALS: BP 137/66; PULSE 86; RESP 16; TEMP 36.8; O2SAT 98
== END 2024-07-07 17:53 | disposition left against medical advice (07) ==
LOC: ER 12:04
DX: R06.02 Shortness of breath (principal); Z53.21 Procedure and treatment not carried out due to patient leaving prior to being seen by health care provider
CPT/HCPCS: 71045; 93005

== ENCOUNTER 2024-07-17 10:43 | Emergency (ER) | payer MEDICAID ==
[~2024-07-17] VITALS: Ht 160 cm; Wt 90.0 kg
[2024-07-17 10:57] VITALS: O2SAT 100
[2024-07-17 11:49] LABS: CHLORIDE 110 mEq/L (98-107); POTASSIUM 3.9 mEq/L (3.5-5.1); SODIUM 141 mEq/L (136-145)
[2024-07-17 11:51] LABS: CALCIUM 8.9 mg/dL (8.7-10.4); CARBON DIOXIDE 28 mEq/L (21-32)
[2024-07-17 11:56] LABS: CREATININE 0.7 mg/dL (0.6-1.0); GLUCOSE 149 mg/dL (70-105); UREA NITROGEN BLOOD 10 mg/dL (9-23)
[2024-07-17 11:58] LABS: ALANINE AMINOTRANSFERASE 17 IU/L (10-49); ALBUMIN 3.7 g/dL (3.2-4.8); ASPARTATE AMINOTRANSFERASE 20 IU/L (<34); BILIRUBIN TOTAL 0.3 mg/dL (0.1-1.0); PROTEIN TOTAL 7.1 g/dL (6.0-8.3)
[2024-07-17] MEDS: KETOROLAC 30MG/ML VIAL IM ONE (12:00)
[2024-07-17 12:08] LABS: BASOPHILS % 0.7 % (0.0-2.0); DIFFERENTIAL COMMENT 0; HEMATOCRIT. 34.1 % (36.0-48.0); HEMOGLOBIN. 10.6 g/dL (12.0-16.0); LYMPHOCYTES % 48.5 % (20.0-50.0); MEAN CORPUSCULAR VOLUME 77.3 fL (81.0-99.0); MEAN PLATELET VOLUME 8.8 fl (7.4-10.4); MONOCYTES % 9.4 % (2.0-8.0); NEUTROPHILS % 38.4 % (40.0-76.0); PLATELET 168 x1000/uL (130-400); RED BLOOD CELL COUNT 4.41 mill/uL (4.2-5.4); RED CELL DISTRIBUTION WIDTH 17.1 % (11.6-14.6); WHITE BLOOD COUNT 3.3 x1000/uL (4.5-11.0)
[2024-07-17 12:10] LABS: BILIRUBIN DIRECT < 0.1 mg/dL (<=3.0)
[2024-07-17 12:11] LABS: TROPONIN I HIGH SENSITIVITY < 4 ng/L (3.0-34)
[2024-07-17 12:50] LABS: HCG SCREEN NEGATIVE
[2024-07-17 13:16] VITALS: BP 117/90; PULSE 107; RESP 16; TEMP 36.8; O2SAT 100
== END 2024-07-17 13:17 | disposition home or self-care (01) ==
LOC: ER 10:43
DX: R07.89 Other chest pain (principal); R10.30 Lower abdominal pain, unspecified; I10 Essential (primary) hypertension; F12.90 Cannabis use, unspecified, uncomplicated; F14.90 Cocaine use, unspecified, uncomplicated; Z79.899 Other long term (current) drug therapy; Z88.5 Allergy status to narcotic agent; Z98.890 Other specified postprocedural states
CPT/HCPCS: 99285; 71045; 80076; 80048; 84703; 83690; 85025; 84484; 36415; 93005; 96372; J1885

== ENCOUNTER 2024-11-07 10:21 | Emergency (ER) | payer MEDICAID ==
[~2024-11-07] VITALS: Ht 167.6 cm; Wt 68.0 kg
[2024-11-07 10:29] VITALS: O2SAT 99
[2024-11-07 10:40] VITALS: BP 139/78; PULSE 89; RESP 18; TEMP 36.8; O2SAT 100
[2024-11-07 11:04] LABS: BASOPHILS % 0.4 % (0.0-2.0); EOSINOPHILS % 1.5 % (0.0-5.0); HEMATOCRIT. 33.9 % (36.0-48.0); MEAN CORPUSCULAR HEMOGLOBIN 25.9 pg (28.0-32.0); MEAN CORPUSCULAR HGB CONC 32.3 g/dL (31.0-37.0); MEAN PLATELET VOLUME 8.3 fl (7.4-10.4); MONOCYTES % 7.6 % (2.0-8.0); NEUTROPHILS % 45.5 % (40.0-76.0); PLATELET 183 x1000/uL (130-400); RED BLOOD CELL COUNT 4.24 mill/uL (4.2-5.4); RED CELL DISTRIBUTION WIDTH 16.3 % (11.6-14.6); WHITE BLOOD COUNT 4.7 x1000/uL (4.5-11.0)
[2024-11-07 11:14] LABS: CHLORIDE 105 mEq/L (98-107); POTASSIUM 3.6 mEq/L (3.5-5.1); SODIUM 140 mEq/L (136-145)
[2024-11-07 11:15] LABS: CALCIUM 8.5 mg/dL (8.7-10.4); CARBON DIOXIDE 29 mEq/L (21-32)
[2024-11-07 11:20] LABS: CREATININE 0.6 mg/dL (0.6-1.0); GLUCOSE 114 mg/dL (70-105); UREA NITROGEN BLOOD 11 mg/dL (9-23)
[2024-11-07 12:19] LABS: TROPONIN I HIGH SENSITIVITY < 4 ng/L (3.0-34)
== END 2024-11-07 11:22 | disposition left against medical advice (07) ==
LOC: ER 10:21
DX: R07.89 Other chest pain (principal); R06.02 Shortness of breath; R10.9 Unspecified abdominal pain; Z53.21 Procedure and treatment not carried out due to patient leaving prior to being seen by health care provider
CPT/HCPCS: 36415; 71045; 80048; 83880; 84484; 85025; 93005

== ENCOUNTER 2024-11-19 18:53 | Emergency (ER) | payer MEDICAID ==
[~2024-11-19] VITALS: Ht 167.6 cm; Wt 82.0 kg
[2024-11-19 18:55] VITALS: O2SAT 97
[2024-11-19 19:09] VITALS: BP 128/68; PULSE 90; RESP 16; TEMP 36.8; O2SAT 97
[2024-11-19 19:29] LABS: BASOPHILS % 0.6 % (0.0-2.0); HEMATOCRIT. 32.8 % (36.0-48.0); HEMOGLOBIN. 10.3 g/dL (12.0-16.0); LYMPHOCYTES % 45.7 % (20.0-50.0); MEAN CORPUSCULAR HEMOGLOBIN 25.6 pg (28.0-32.0); MEAN CORPUSCULAR HGB CONC 31.4 g/dL (31.0-37.0); MEAN CORPUSCULAR VOLUME 81.4 fL (81.0-99.0); MEAN PLATELET VOLUME 8.4 fl (7.4-10.4); MONOCYTES % 9.1 % (2.0-8.0); NEUTROPHILS % 42.6 % (40.0-76.0); PLATELET 187 x1000/uL (130-400); RED BLOOD CELL COUNT 4.03 mill/uL (4.2-5.4); RED CELL DISTRIBUTION WIDTH 16.4 % (11.6-14.6); WHITE BLOOD COUNT 5.4 x1000/uL (4.5-11.0)
[2024-11-19 19:37] LABS: CHLORIDE 107 mEq/L (98-107); POTASSIUM 3.9 mEq/L (3.5-5.1); SODIUM 138 mEq/L (136-145)
[2024-11-19 19:38] LABS: CALCIUM 8.7 mg/dL (8.7-10.4); CARBON DIOXIDE 24 mEq/L (21-32)
[2024-11-19 19:43] LABS: CREATININE 0.9 mg/dL (0.6-1.0); GLUCOSE 145 mg/dL (70-105); UREA NITROGEN BLOOD 20 mg/dL (9-23)
[2024-11-19 19:46] LABS: TROPONIN I HIGH SENSITIVITY < 4 ng/L (3.0-34)
== END 2024-11-19 20:39 | disposition left against medical advice (07) ==
LOC: ER 18:53
DX: R07.89 Other chest pain (principal); R10.9 Unspecified abdominal pain; R06.02 Shortness of breath; Z98.890 Other specified postprocedural states; I10 Essential (primary) hypertension; Z53.21 Procedure and treatment not carried out due to patient leaving prior to being seen by health care provider
CPT/HCPCS: 80048; 85025; 84484; 36415; 71045; 93005; Z7610 ×2

== ENCOUNTER 2024-11-26 09:41 | Emergency (ER) | payer MEDICAID ==
[~2024-11-26] VITALS: Ht 160 cm; Wt 91.0 kg
[2024-11-26 09:48] VITALS: O2SAT 100
[2024-11-26] MEDS: ASPIRIN 325MG TABLET PO ONE (10:48)
[2024-11-26 11:36] LABS: BASOPHILS % 0.7 % (0.0-2.0); EOSINOPHILS % 3.3 % (0.0-5.0); HEMATOCRIT. 34.1 % (36.0-48.0); HEMOGLOBIN. 10.8 g/dL (12.0-16.0); LYMPHOCYTES % 56.6 % (20.0-50.0); MEAN CORPUSCULAR HEMOGLOBIN 25.4 pg (28.0-32.0); MEAN CORPUSCULAR HGB CONC 31.7 g/dL (31.0-37.0); MEAN CORPUSCULAR VOLUME 80.2 fL (81.0-99.0); MEAN PLATELET VOLUME 7.9 fl (7.4-10.4); MONOCYTES % 9.2 % (2.0-8.0); NEUTROPHILS % 30.2 % (40.0-76.0); PLATELET 213 x1000/uL (130-400); RED BLOOD CELL COUNT 4.25 mill/uL (4.2-5.4); RED CELL DISTRIBUTION WIDTH 16.4 % (11.6-14.6); WHITE BLOOD COUNT 3.2 x1000/uL (4.5-11.0)
[2024-11-26 11:47] LABS: CARBON DIOXIDE 27 mEq/L (21-32); CHLORIDE 105 mEq/L (98-107); POTASSIUM 4.1 mEq/L (3.5-5.1); SODIUM 138 mEq/L (136-145)
[2024-11-26 11:48] LABS: CALCIUM 9.1 mg/dL (8.7-10.4)
[2024-11-26 11:52] LABS: CREATININE 0.6 mg/dL (0.6-1.0)
[2024-11-26 11:53] LABS: GLUCOSE 80 mg/dL (70-105); UREA NITROGEN BLOOD 13 mg/dL (9-23)
[2024-11-26 11:54] LABS: ALANINE AMINOTRANSFERASE 28 IU/L (10-49); ALBUMIN 4.1 g/dL (3.2-4.8); ASPARTATE AMINOTRANSFERASE 25 IU/L (<34)
[2024-11-26 11:55] LABS: BILIRUBIN DIRECT 0.1 mg/dL (<=3.0); BILIRUBIN TOTAL 0.4 mg/dL (0.1-1.0); PROTEIN TOTAL 7.2 g/dL (6.0-8.3); PROTHROMBIN TIME 10.3 sec (9.6-11.0)
[2024-11-26 12:00] VITALS: BP 148/77; PULSE 54; RESP 13; TEMP 36.8; O2SAT 100
[2024-11-26 12:03] LABS: TROPONIN I HIGH SENSITIVITY < 4 ng/L (3.0-34)
== END 2024-11-26 15:45 | disposition left against medical advice (07) ==
LOC: ER 09:41 → EDBEDREQTM 12:30 → EDBEDREQ 12:30 → ENRESERV 14:02 → CANRESERV 14:02 → ER 15:45
DX: R07.89 Other chest pain (principal); R10.9 Unspecified abdominal pain; I10 Essential (primary) hypertension; F17.200 Nicotine dependence, unspecified, uncomplicated; F10.90 Alcohol use, unspecified, uncomplicated; Z79.899 Other long term (current) drug therapy; Z88.5 Allergy status to narcotic agent; Y90.9 Presence of alcohol in blood, level not specified
CPT/HCPCS: 36415; 71045; 80048; 80076; 83880; 84484; 85025; 99284

== ENCOUNTER 2024-12-04 10:29 | Emergency (ER) | payer MEDICAID ==
[~2024-12-04] VITALS: Ht 160 cm; Wt 91.0 kg
[2024-12-04 10:32] VITALS: PULSE 94; RESP 18; O2SAT 100
[2024-12-04 10:35] VITALS: BP 155/78; TEMP 36.9; O2SAT 99
[2024-12-04 11:03] LABS: BASOPHILS % 1.0 % (0.0-2.0); EOSINOPHILS % 3.4 % (0.0-5.0); HEMATOCRIT. 33.9 % (36.0-48.0); HEMOGLOBIN. 10.7 g/dL (12.0-16.0); LYMPHOCYTES % 51.1 % (20.0-50.0); MEAN PLATELET VOLUME 8.2 fl (7.4-10.4); MONOCYTES % 10.2 % (2.0-8.0); NEUTROPHILS % 34.3 % (40.0-76.0); PLATELET 211 x1000/uL (130-400); RED BLOOD CELL COUNT 4.20 mill/uL (4.2-5.4); RED CELL DISTRIBUTION WIDTH 16.0 % (11.6-14.6)
[2024-12-04 11:18] LABS: CREATININE 0.7 mg/dL (0.6-1.0)
[2024-12-04 11:19] LABS: TROPONIN I HIGH SENSITIVITY < 4 ng/L (3.0-34); UREA NITROGEN BLOOD 13 mg/dL (9-23)
[2024-12-04 11:20] LABS: ASPARTATE AMINOTRANSFERASE 28 IU/L (<34)
[2024-12-04 11:21] LABS: BILIRUBIN DIRECT < 0.1 mg/dL (<=3.0); BILIRUBIN TOTAL 0.3 mg/dL (0.1-1.0); PROTEIN TOTAL 6.6 g/dL (6.0-8.3)
[2024-12-04 11:36] LABS: HCG SCREEN NEGATIVE
== END 2024-12-04 11:05 | disposition left against medical advice (07) ==
LOC: ER 10:29
DX: R07.9 Chest pain, unspecified (principal); Z53.21 Procedure and treatment not carried out due to patient leaving prior to being seen by health care provider
CPT/HCPCS: 36415; 80048; 80076; 83880; 84484; 84703; 85025

== ENCOUNTER 2024-12-07 13:33 | Emergency (ER) | payer MEDICAID ==
[~2024-12-07] VITALS: Ht 160 cm; Wt 90.0 kg
[2024-12-07 13:40] VITALS: PULSE 92; RESP 16; O2SAT 100
[2024-12-07 14:00] VITALS: BP 139/71; TEMP 36.8; O2SAT 99
== END 2024-12-07 14:54 | disposition left against medical advice (07) ==
LOC: ER 14:02
DX: R07.89 Other chest pain (principal); K85.90 Acute pancreatitis without necrosis or infection, unspecified; I10 Essential (primary) hypertension; Z79.899 Other long term (current) drug therapy; Z88.5 Allergy status to narcotic agent
CPT/HCPCS: 71045; 93005; 99283; Z7610; 99285

== ENCOUNTER 2024-12-13 10:31 | Emergency (ER) | payer MEDICAID ==
[2024-12-13 10:34] VITALS: PULSE 94; RESP 16; O2SAT 99
== END 2024-12-13 11:21 | disposition left against medical advice (07) ==
LOC: ER 10:31
DX: R07.89 Other chest pain (principal); R10.9 Unspecified abdominal pain; Z53.21 Procedure and treatment not carried out due to patient leaving prior to being seen by health care provider
CPT/HCPCS: 71045

== ENCOUNTER 2024-12-19 23:12 | Emergency (ER) | payer MEDICAID ==
[~2024-12-19] VITALS: Ht 160 cm; Wt 91.0 kg
[2024-12-19 23:46] VITALS: O2SAT 99
[2024-12-20 02:42] LABS: BASOPHILS % 0.6 % (0.0-2.0); EOSINOPHILS % 4.0 % (0.0-5.0); HEMATOCRIT. 33.0 % (36.0-48.0); HEMOGLOBIN. 10.7 g/dL (12.0-16.0); LYMPHOCYTES % 44.4 % (20.0-50.0); MEAN PLATELET VOLUME 8.6 fl (7.4-10.4); MONOCYTES % 11.0 % (2.0-8.0); NEUTROPHILS % 40.0 % (40.0-76.0); PLATELET 170 x1000/uL (130-400); RED BLOOD CELL COUNT 4.08 mill/uL (4.2-5.4); RED CELL DISTRIBUTION WIDTH 15.7 % (11.6-14.6)
[2024-12-20 02:54] LABS: CREATININE 0.6 mg/dL (0.6-1.0)
[2024-12-20 02:55] LABS: TROPONIN I HIGH SENSITIVITY < 4 ng/L (3.0-34); UREA NITROGEN BLOOD 20 mg/dL (9-23)
[2024-12-20 03:01] LABS: HCG SCREEN NEGATIVE
[2024-12-20 03:43] VITALS: BP 126/99; PULSE 71; RESP 14; TEMP 36.7; O2SAT 99
== END 2024-12-20 03:48 | disposition home or self-care (01) ==
LOC: ER 23:32
DX: R07.89 Other chest pain (principal); F19.90 Other psychoactive substance use, unspecified, uncomplicated; I10 Essential (primary) hypertension; Z98.890 Other specified postprocedural states; Z79.899 Other long term (current) drug therapy; Z88.5 Allergy status to narcotic agent
CPT/HCPCS: 93005; 99285; 80048; 84703; 85025; 85379; 84484; 36415; 71045; Z7610 ×2

== ENCOUNTER 2024-12-25 15:21 | Emergency (ER) | payer MEDICAID ==
[~2024-12-25] VITALS: Ht 167.6 cm; Wt 83.0 kg
[2024-12-25 15:24] VITALS: PULSE 78; RESP 14; O2SAT 100
[2024-12-25 15:36] VITALS: BP 153/87; TEMP 37.1; O2SAT 98
[2024-12-25 16:12] LABS: HCG SCREEN NEGATIVE
[2024-12-25 16:23] LABS: CREATININE 0.7 mg/dL (0.6-1.0); UREA NITROGEN BLOOD 9 mg/dL (9-23)
[2024-12-25 16:30] LABS: BASOPHILS % 0.8 % (0.0-2.0); EOSINOPHILS % 4.0 % (0.0-5.0); HEMATOCRIT. 31.9 % (36.0-48.0); HEMOGLOBIN. 10.3 g/dL (12.0-16.0); LYMPHOCYTES % 44.0 % (20.0-50.0); MONOCYTES % 9.9 % (2.0-8.0); NEUTROPHILS % 41.3 % (40.0-76.0); RED BLOOD CELL COUNT 3.93 mill/uL (4.2-5.4); RED CELL DISTRIBUTION WIDTH 15.8 % (11.6-14.6)
[2024-12-25 16:34] LABS: TROPONIN I HIGH SENSITIVITY < 4 ng/L (3.0-34)
[2024-12-25 16:51] LABS: PLATELET 166 x1000/uL (130-400)
[2024-12-25 16:52] LABS: MEAN PLATELET VOLUME 8.9 fl (7.4-10.4)
== END 2024-12-25 17:50 | disposition left against medical advice (07) ==
LOC: ER 15:21
DX: R07.89 Other chest pain (principal); Z53.21 Procedure and treatment not carried out due to patient leaving prior to being seen by health care provider
CPT/HCPCS: 36415; 71045; 80048; 84484; 84703; 85025

== ENCOUNTER 2024-12-30 10:31 | Emergency (ER) | payer MEDICAID ==
[~2024-12-30] VITALS: Ht 167.6 cm; Wt 80.0 kg
[2024-12-30 10:32] VITALS: O2SAT 98
[2024-12-30 10:41] VITALS: BP 122/74; PULSE 91; RESP 14; TEMP 36.9; O2SAT 97
[2024-12-30 11:36] LABS: BASOPHILS % 0.7 % (0.0-2.0); EOSINOPHILS % 5.1 % (0.0-5.0); HEMATOCRIT. 34.5 % (36.0-48.0); HEMOGLOBIN. 11.0 g/dL (12.0-16.0); LYMPHOCYTES % 45.8 % (20.0-50.0); MEAN PLATELET VOLUME 8.5 fl (7.4-10.4); MONOCYTES % 11.0 % (2.0-8.0); NEUTROPHILS % 37.4 % (40.0-76.0); PLATELET 201 x1000/uL (130-400); RED BLOOD CELL COUNT 4.25 mill/uL (4.2-5.4); RED CELL DISTRIBUTION WIDTH 15.7 % (11.6-14.6)
[2024-12-30 11:56] LABS: HCG SCREEN NEGATIVE
[2024-12-30 11:58] LABS: CREATININE 0.8 mg/dL (0.6-1.0); UREA NITROGEN BLOOD 13 mg/dL (9-23)
[2024-12-30 11:59] LABS: TROPONIN I HIGH SENSITIVITY < 4 ng/L (3.0-34)
[2024-12-30 12:00] LABS: ASPARTATE AMINOTRANSFERASE 26 IU/L (<34); BILIRUBIN DIRECT < 0.1 mg/dL (<=3.0); BILIRUBIN TOTAL 0.3 mg/dL (0.1-1.0); PROTEIN TOTAL 6.9 g/dL (6.0-8.3)
== END 2024-12-30 16:07 | disposition left against medical advice (07) ==
LOC: ER 10:31
DX: R07.89 Other chest pain (principal); I10 Essential (primary) hypertension; Z79.899 Other long term (current) drug therapy; Z59.00 Homelessness unspecified; Z55.6 Problems related to health literacy; Z98.890 Other specified postprocedural states; Z88.5 Allergy status to narcotic agent
CPT/HCPCS: 36415; 80048; 80076; 84484; 84703; 85025; 99283

== ENCOUNTER 2025-01-04 13:15 | Emergency (ER) | payer MEDICAID ==
[~2025-01-04] VITALS: Ht 160 cm; Wt 90.0 kg
[2025-01-04 13:22] VITALS: O2SAT 98
[2025-01-04 13:26] VITALS: BP 123/71; PULSE 76; RESP 18; TEMP 37.1; O2SAT 98
[2025-01-04 14:22] LABS: BASOPHILS % 0.9 % (0.0-2.0); EOSINOPHILS % 2.2 % (0.0-5.0); HEMATOCRIT. 36.3 % (36.0-48.0); HEMOGLOBIN. 11.4 g/dL (12.0-16.0); LYMPHOCYTES % 56.4 % (20.0-50.0); MEAN PLATELET VOLUME 8.5 fl (7.4-10.4); MONOCYTES % 9.2 % (2.0-8.0); NEUTROPHILS % 31.3 % (40.0-76.0); PLATELET 198 x1000/uL (130-400); RED BLOOD CELL COUNT 4.45 mill/uL (4.2-5.4); RED CELL DISTRIBUTION WIDTH 15.8 % (11.6-14.6)
[2025-01-04 14:41] LABS: CREATININE 0.7 mg/dL (0.6-1.0); TROPONIN I HIGH SENSITIVITY < 4 ng/L (3.0-34); UREA NITROGEN BLOOD 12 mg/dL (9-23)
[2025-01-04 14:43] LABS: ASPARTATE AMINOTRANSFERASE 25 IU/L (<34); BILIRUBIN DIRECT 0.1 mg/dL (<=3.0); BILIRUBIN TOTAL 0.5 mg/dL (0.1-1.0); PROTEIN TOTAL 7.3 g/dL (6.0-8.3)
[2025-01-04 14:50] LABS: HCG SCREEN NEGATIVE
== END 2025-01-04 16:05 | disposition left against medical advice (07) ==
LOC: ER 13:15
DX: R07.89 Other chest pain (principal); I10 Essential (primary) hypertension; Z59.00 Homelessness unspecified; Z88.5 Allergy status to narcotic agent; Z79.899 Other long term (current) drug therapy; Z98.890 Other specified postprocedural states; Z87.891 Personal history of nicotine dependence
CPT/HCPCS: 80076; 80048; 84703; 83690; 85025; 84484; 36415; 71045; 93005; 99285; Z7610; A6449

== ENCOUNTER 2025-01-09 20:37 | Emergency (ER) | payer MEDICAID ==
[~2025-01-09] VITALS: Ht 160 cm; Wt 90.0 kg
[2025-01-09 20:39] VITALS: TEMP 36.8; O2SAT 96
[2025-01-09 21:15] LABS: BASOPHILS % 0.9 % (0.0-2.0); EOSINOPHILS % 2.6 % (0.0-5.0); HEMATOCRIT. 32.3 % (36.0-48.0); HEMOGLOBIN. 10.3 g/dL (12.0-16.0); LYMPHOCYTES % 41.5 % (20.0-50.0); MEAN PLATELET VOLUME 8.8 fl (7.4-10.4); MONOCYTES % 8.7 % (2.0-8.0); NEUTROPHILS % 46.3 % (40.0-76.0); PLATELET 151 x1000/uL (130-400); RED BLOOD CELL COUNT 3.99 mill/uL (4.2-5.4); RED CELL DISTRIBUTION WIDTH 15.6 % (11.6-14.6)
[2025-01-09 21:29] LABS: CREATININE 1.0 mg/dL (0.6-1.0); UREA NITROGEN BLOOD 14 mg/dL (9-23)
[2025-01-09 21:30] LABS: TROPONIN I HIGH SENSITIVITY < 4 ng/L (3.0-34)
[2025-01-09] MEDS ORDERED: ACET-2708 MT (21:44)
[2025-01-09 22:17] VITALS: BP 146/89; PULSE 76; RESP 16; O2SAT 98
== END 2025-01-09 22:21 | disposition home or self-care (01) ==
LOC: ER 20:37
DX: R07.89 Other chest pain (principal); I10 Essential (primary) hypertension; Z88.5 Allergy status to narcotic agent; Z79.899 Other long term (current) drug therapy; Z98.890 Other specified postprocedural states
CPT/HCPCS: 80048; 85025; 84484; 36415; 71045; 93005; 99285; Z7610

== ENCOUNTER 2025-01-13 13:11 | Emergency (ER) | payer MEDICAID ==
[~2025-01-13] VITALS: Ht 160 cm; Wt 90.0 kg
[~2025-01-13 13:11] MED LIST changes: +ACET-2708 MT
[2025-01-13 13:26] VITALS: BP 113/81; PULSE 81; RESP 18; TEMP 36.7; O2SAT 98
[2025-01-13] MEDS ORDERED: ONDANSETRON 4MG ODT PO ONE (14:15)
[2025-01-13] MEDS ORDERED: ACETAMINOPHEN 325MG TABLET PO ONE (14:15)
[2025-01-13 14:47] LABS: BASOPHILS % 0.5 % (0.0-2.0); EOSINOPHILS % 3.2 % (0.0-5.0); HEMATOCRIT. 33.6 % (36.0-48.0); HEMOGLOBIN. 10.7 g/dL (12.0-16.0); LYMPHOCYTES % 51.7 % (20.0-50.0); MEAN PLATELET VOLUME 8.7 fl (7.4-10.4); MONOCYTES % 10.3 % (2.0-8.0); NEUTROPHILS % 34.3 % (40.0-76.0); PLATELET 162 x1000/uL (130-400); RED BLOOD CELL COUNT 4.12 mill/uL (4.2-5.4); RED CELL DISTRIBUTION WIDTH 15.7 % (11.6-14.6)
[2025-01-13 15:02] LABS: CREATININE 0.8 mg/dL (0.6-1.0); HCG SCREEN NEGATIVE; UREA NITROGEN BLOOD 18 mg/dL (9-23)
[2025-01-13 15:03] LABS: ETHANOL BLOOD < 10 mg/dL (<10); TROPONIN I HIGH SENSITIVITY < 4 ng/L (3.0-34)
[2025-01-13 15:04] LABS: ASPARTATE AMINOTRANSFERASE 20 IU/L (<34); BILIRUBIN DIRECT < 0.1 mg/dL (<=3.0); BILIRUBIN TOTAL 0.3 mg/dL (0.1-1.0); PROTEIN TOTAL 7.1 g/dL (6.0-8.3)
== END 2025-01-13 14:32 | disposition home or self-care (01) ==
LOC: ER 13:11
DX: R07.89 Other chest pain (principal); F10.90 Alcohol use, unspecified, uncomplicated; I10 Essential (primary) hypertension; R06.02 Shortness of breath; Z79.899 Other long term (current) drug therapy; Z87.19 Personal history of other diseases of the digestive system; Z88.5 Allergy status to narcotic agent; Y90.9 Presence of alcohol in blood, level not specified
CPT/HCPCS: 36415; 80048; 80076; 80320; 83880; 84484; 84703; 85025; 93005; 99283; 99284; G0480

== ENCOUNTER 2025-01-18 15:25 | Emergency (ER) | payer MEDICAID ==
[~2025-01-18] VITALS: Ht 160 cm; Wt 91.0 kg
[2025-01-18 15:27] VITALS: O2SAT 99
[2025-01-18 15:43] VITALS: BP 159/89; PULSE 75; RESP 18; TEMP 36.9; O2SAT 98
[2025-01-18] MEDS: ACETAMINOPHEN 325MG TABLET PO ONE (16:01)
[2025-01-18 16:56] LABS: BASOPHILS % 0.5 % (0.0-2.0); EOSINOPHILS % 3.0 % (0.0-5.0); HEMATOCRIT. 33.8 % (36.0-48.0); HEMOGLOBIN. 10.6 g/dL (12.0-16.0); LYMPHOCYTES % 52.7 % (20.0-50.0); MEAN PLATELET VOLUME 8.6 fl (7.4-10.4); MONOCYTES % 11.4 % (2.0-8.0); NEUTROPHILS % 32.4 % (40.0-76.0); PLATELET 178 x1000/uL (130-400); RED BLOOD CELL COUNT 4.13 mill/uL (4.2-5.4); RED CELL DISTRIBUTION WIDTH 15.3 % (11.6-14.6)
[2025-01-18 17:09] LABS: CREATININE 0.8 mg/dL (0.6-1.0)
[2025-01-18 17:10] LABS: TROPONIN I HIGH SENSITIVITY < 4 ng/L (3.0-34); UREA NITROGEN BLOOD 17 mg/dL (9-23)
[2025-01-18 17:11] LABS: ASPARTATE AMINOTRANSFERASE 20 IU/L (<34)
[2025-01-18 17:12] LABS: BILIRUBIN DIRECT < 0.1 mg/dL (<=3.0); BILIRUBIN TOTAL 0.2 mg/dL (0.1-1.0); HCG SCREEN NEGATIVE; PROTEIN TOTAL 7.1 g/dL (6.0-8.3)
== END 2025-01-18 17:24 | disposition left against medical advice (07) ==
LOC: ER 15:26
DX: R07.89 Other chest pain (principal); Z79.899 Other long term (current) drug therapy; Z59.00 Homelessness unspecified; Z88.5 Allergy status to narcotic agent
CPT/HCPCS: 36415; 71045; 80048; 80076; 83880; 84484; 84703; 85025; 93005; 99285

== ENCOUNTER 2025-01-24 13:15 | Emergency (ER) | payer MEDICAID ==
[~2025-01-24] VITALS: Ht 160 cm; Wt 87.0 kg
[2025-01-24 13:20] VITALS: O2SAT 99
[2025-01-24 13:29] VITALS: BP 117/83; PULSE 80; RESP 16; TEMP 36.6; O2SAT 99
== END 2025-01-24 14:33 | disposition left against medical advice (07) ==
LOC: ER 13:15
DX: R07.89 Other chest pain (principal); R10.9 Unspecified abdominal pain; Z53.21 Procedure and treatment not carried out due to patient leaving prior to being seen by health care provider

== ENCOUNTER 2025-02-16 08:22 | Emergency (ER) | payer MEDICAID ==
[~2025-02-16] VITALS: Ht 160 cm; Wt 91.0 kg
[~2025-02-16 08:22] MED LIST changes: -ACET-2708 MT; -ACET-3163 MT; -CLOT15CR27 TP; -FAMO-135 MT; -IBUP-2028 MT; -MAG355OR21 MT; -ONDA4TAB5 MT; -ONDA4TAB50 MT; -TOPUD PO
[2025-02-16 08:26] VITALS: O2SAT 98
[2025-02-16 08:27] VITALS: BP 139/96; PULSE 72; RESP 18; TEMP 36.9; O2SAT 99
[2025-02-16 08:58] LABS: BASOPHILS % 0.8 % (0.0-2.0); EOSINOPHILS % 3.1 % (0.0-5.0); HEMATOCRIT. 34.8 % (36.0-48.0); HEMOGLOBIN. 11.0 g/dL (12.0-16.0); LYMPHOCYTES % 50.5 % (20.0-50.0); MEAN PLATELET VOLUME 8.5 fl (7.4-10.4); MONOCYTES % 9.2 % (2.0-8.0); NEUTROPHILS % 36.4 % (40.0-76.0); PLATELET 176 x1000/uL (130-400); RED BLOOD CELL COUNT 4.30 mill/uL (4.2-5.4); RED CELL DISTRIBUTION WIDTH 16.7 % (11.6-14.6)
[2025-02-16 09:08] LABS: CREATININE 0.6 mg/dL (0.6-1.0)
[2025-02-16 09:09] LABS: TROPONIN I HIGH SENSITIVITY < 4 ng/L (3.0-34); UREA NITROGEN BLOOD 13 mg/dL (9-23)
[2025-02-16 09:10] LABS: ASPARTATE AMINOTRANSFERASE 23 IU/L (<34)
[2025-02-16 09:11] LABS: BILIRUBIN DIRECT 0.2 mg/dL (<=3.0); BILIRUBIN TOTAL 0.6 mg/dL (0.1-1.0); PROTEIN TOTAL 7.1 g/dL (6.0-8.3)
== END 2025-02-16 10:23 | disposition left against medical advice (07) ==
LOC: ER 08:22 → EDBEDREQ 10:13 → ER 10:23 → ENRESERV 10:25 → CMPBEDREQ 11:09
DX: R07.2 Precordial pain (principal); I10 Essential (primary) hypertension; Z79.899 Other long term (current) drug therapy; Z87.19 Personal history of other diseases of the digestive system; Z98.890 Other specified postprocedural states; Z88.5 Allergy status to narcotic agent
CPT/HCPCS: 36415; 80048; 80076; 84484; 85025; 93005; 99284

== ENCOUNTER 2025-02-23 07:26 | Emergency (ER) | payer MEDICAID ==
[~2025-02-23] VITALS: Ht 160 cm; Wt 91.0 kg
[2025-02-23 07:27] VITALS: O2SAT 98
[2025-02-23 07:38] VITALS: BP 169/103; PULSE 62; RESP 14; TEMP 36.6; O2SAT 100
[2025-02-23 08:01] LABS: BASOPHILS % 1.0 % (0.0-2.0); EOSINOPHILS % 3.0 % (0.0-5.0); HEMATOCRIT. 35.9 % (36.0-48.0); HEMOGLOBIN. 11.5 g/dL (12.0-16.0); LYMPHOCYTES % 48.5 % (20.0-50.0); MEAN PLATELET VOLUME 8.2 fl (7.4-10.4); MONOCYTES % 10.2 % (2.0-8.0); NEUTROPHILS % 37.3 % (40.0-76.0); PLATELET 189 x1000/uL (130-400); RED BLOOD CELL COUNT 4.44 mill/uL (4.2-5.4); RED CELL DISTRIBUTION WIDTH 16.8 % (11.6-14.6)
[2025-02-23 08:16] LABS: CREATININE 0.7 mg/dL (0.6-1.0); UREA NITROGEN BLOOD 10 mg/dL (9-23)
[2025-02-23 08:17] LABS: TROPONIN I HIGH SENSITIVITY < 4 ng/L (3.0-34)
== END 2025-02-23 08:12 | disposition left against medical advice (07) ==
LOC: ER 07:26
DX: R07.89 Other chest pain (principal); R06.02 Shortness of breath; R10.9 Unspecified abdominal pain; Z53.21 Procedure and treatment not carried out due to patient leaving prior to being seen by health care provider
CPT/HCPCS: 36415; 71045; 80048; 84484; 85025; 93005

== ENCOUNTER 2025-03-22 11:40 | Emergency (ER) | payer MEDICAID ==
[~2025-03-22] VITALS: Ht 160 cm; Wt 91.0 kg
[2025-03-22 11:49] VITALS: TEMP 36.6; O2SAT 99
[2025-03-22 12:41] LABS: BASOPHILS % 0.5 % (0.0-2.0); EOSINOPHILS % 2.8 % (0.0-5.0); HEMATOCRIT. 34.9 % (36.0-48.0); HEMOGLOBIN. 10.9 g/dL (12.0-16.0); LYMPHOCYTES % 45.1 % (20.0-50.0); MEAN PLATELET VOLUME 8.8 fl (7.4-10.4); MONOCYTES % 10.4 % (2.0-8.0); NEUTROPHILS % 41.2 % (40.0-76.0); PLATELET 165 x1000/uL (130-400); RED BLOOD CELL COUNT 4.22 mill/uL (4.2-5.4); RED CELL DISTRIBUTION WIDTH 17.1 % (11.6-14.6)
[2025-03-22 12:56] LABS: HCG SCREEN NEGATIVE
[2025-03-22] MEDS: SODIUM CHLORIDE 0.9% 1,000 ML IV ONE (12:58)
[2025-03-22] MEDS: ONDANSETRON HCL 4MG/2ML INJ IV ONE (12:58)
[2025-03-22] MEDS: KETOROLAC 15MG/ML VIAL IV ONE (12:58)
[2025-03-22] MEDS: ACETAMINOPHEN 500MG TABLET PO ONE (12:58)
[2025-03-22 12:59] LABS: CREATININE 0.6 mg/dL (0.6-1.0); UREA NITROGEN BLOOD 10 mg/dL (9-23)
[2025-03-22 13:00] LABS: TROPONIN I HIGH SENSITIVITY < 4 ng/L (3.0-34)
[2025-03-22 13:01] LABS: ASPARTATE AMINOTRANSFERASE 24 IU/L (<34); BILIRUBIN DIRECT < 0.1 mg/dL (<=3.0); BILIRUBIN TOTAL 0.4 mg/dL (0.1-1.0); PROTEIN TOTAL 6.6 g/dL (6.0-8.3)
[2025-03-22 13:04] LABS: CLARITY URINE CLEAR (CLEAR); COLOR URINE YELLOW (YELLOW); GLUCOSE URINE NEGATIVE (NEGATIVE); KETONES URINE NEGATIVE (NEGATIVE); LEUKOCYTE ESTERASE URINE NEGATIVE (NEGATIVE); NITRITE URINE NEGATIVE (NEGATIVE); OCCULT BLOOD URINE NEGATIVE (NEGATIVE); PH URINE 8.5 (4.5-8.0); PROTEIN URINE NEGATIVE (NEGATIVE); SPECIFIC GRAVITY URINE 1.019 (1.005-1.030); UROBILINOGEN URINE 0.2 E.U./dL (0.2-1.0)
[2025-03-22 14:39] VITALS: BP 140/86; PULSE 70; RESP 18; O2SAT 100
[2025-03-27] MEDS ORDERED: AMLO5TAB88 PO (19:09)
== END 2025-03-22 14:41 | disposition home or self-care (01) ==
LOC: ER 11:40 → CMPBEDREQ 15:29
DX: R07.9 Chest pain, unspecified (principal); I10 Essential (primary) hypertension; K29.70 Gastritis, unspecified, without bleeding
CPT/HCPCS: 80076; 80048; 81003; 84703; 83690; 85025; 84484; 36415; 71045; 93005; 96361; 96374; 96375; 99285; J1885; J2405; J7030; Z7610 ×3

== ENCOUNTER 2025-04-04 20:22 | Emergency (ER) | payer MEDICAID ==
[~2025-04-04] VITALS: Ht 160 cm; Wt 91.0 kg
[~2025-04-04 20:22] MED LIST changes: +AMLO5TAB88 PO; -OMEP40CA20 MT; -PROT20 MT
[2025-04-04 20:57] VITALS: O2SAT 98
[2025-04-04 21:16] VITALS: BP 138/91; PULSE 82; RESP 16; TEMP 36.9; O2SAT 99
[2025-04-04] MEDS ORDERED: KETOROLAC 15MG/ML VIAL IM ONE (22:15)
[2025-04-04] MEDS ORDERED: MAGNESIUM/ALUMINUM HYDROXIDE/SIMETHICONE 30ML UDC PO ONE (22:15)
[2025-04-04] MEDS ORDERED: FAMOTIDINE 20MG TABLET PO ONE (22:15)
[2025-04-04] MEDS ORDERED: ONDANSETRON HCL 4MG/2ML INJ IV ONE (22:15)
[2025-04-04 23:55] LABS: BASOPHILS % 0.7 % (0.0-2.0); EOSINOPHILS % 2.9 % (0.0-5.0); HEMATOCRIT. 35.2 % (36.0-48.0); HEMOGLOBIN. 11.1 g/dL (12.0-16.0); LYMPHOCYTES % 54.0 % (20.0-50.0); MEAN PLATELET VOLUME 8.7 fl (7.4-10.4); MONOCYTES % 9.0 % (2.0-8.0); NEUTROPHILS % 33.4 % (40.0-76.0); PLATELET 176 x1000/uL (130-400); RED BLOOD CELL COUNT 4.24 mill/uL (4.2-5.4); RED CELL DISTRIBUTION WIDTH 16.9 % (11.6-14.6)
[2025-04-05 00:08] LABS: CREATININE 0.8 mg/dL (0.6-1.0); TROPONIN I HIGH SENSITIVITY < 4 ng/L (3.0-34)
[2025-04-05 00:09] LABS: UREA NITROGEN BLOOD 19 mg/dL (9-23)
[2025-04-05 00:10] LABS: ASPARTATE AMINOTRANSFERASE 24 IU/L (<34); BILIRUBIN DIRECT < 0.1 mg/dL (<=3.0)
[2025-04-05 00:11] LABS: BILIRUBIN TOTAL 0.3 mg/dL (0.1-1.0); PROTEIN TOTAL 7.2 g/dL (6.0-8.3)
[2025-04-05 00:33] LABS: HCG SCREEN NEGATIVE
[2025-04-05] MEDS: ONDANSETRON 4MG ODT PO ONE (01:05)
[2025-04-05] MEDS: KETOROLAC 15MG/ML VIAL IM NR (01:06)
[2025-04-05] MEDS: FAMOTIDINE 20MG TABLET PO NR (01:10)
[2025-04-05] MEDS: MAGNESIUM/ALUMINUM HYDROXIDE/SIMETHICONE 30ML UDC PO NR (01:10)
== END 2025-04-05 01:23 | disposition home or self-care (01) ==
LOC: ER 20:22
DX: R07.9 Chest pain, unspecified (principal); I10 Essential (primary) hypertension; Z88.5 Allergy status to narcotic agent; Z98.890 Other specified postprocedural states
CPT/HCPCS: 80076; 80048; 80320; 84703; 83690; 85025; 84484; 36415; 71045; 99284; 96372; Q0162; J1885; G0480

== ENCOUNTER 2025-04-07 18:45 | Emergency (ER) | payer MEDICAID ==
[~2025-04-07] VITALS: Ht 167.6 cm; Wt 100.0 kg
[2025-04-07 19:06] VITALS: O2SAT 100
[2025-04-07 20:23] LABS: CLARITY URINE CLEAR (CLEAR); COLOR URINE YELLOW (YELLOW); GLUCOSE URINE NEGATIVE (NEGATIVE); KETONES URINE NEGATIVE (NEGATIVE); LEUKOCYTE ESTERASE URINE NEGATIVE (NEGATIVE); NITRITE URINE NEGATIVE (NEGATIVE); OCCULT BLOOD URINE NEGATIVE (NEGATIVE); PH URINE 6.5 (4.5-8.0); PROTEIN URINE NEGATIVE (NEGATIVE); SPECIFIC GRAVITY URINE 1.021 (1.005-1.030); UROBILINOGEN URINE 0.2 E.U./dL (0.2-1.0)
[2025-04-07] MEDS: KETOROLAC 30MG/ML VIAL IM ONE (20:50)
[2025-04-07 21:24] VITALS: BP 146/90; PULSE 74; RESP 18; TEMP 36.7; O2SAT 98
[2025-04-07 21:39] LABS: BASOPHILS % 0.5 % (0.0-2.0); EOSINOPHILS % 3.6 % (0.0-5.0); HEMATOCRIT. 35.5 % (36.0-48.0); HEMOGLOBIN. 11.2 g/dL (12.0-16.0); LYMPHOCYTES % 53.1 % (20.0-50.0); MEAN PLATELET VOLUME 9.0 fl (7.4-10.4); MONOCYTES % 8.5 % (2.0-8.0); NEUTROPHILS % 34.3 % (40.0-76.0); PLATELET 165 x1000/uL (130-400); RED BLOOD CELL COUNT 4.26 mill/uL (4.2-5.4); RED CELL DISTRIBUTION WIDTH 15.8 % (11.6-14.6)
[2025-04-07 21:52] LABS: CREATININE 0.8 mg/dL (0.6-1.0); UREA NITROGEN BLOOD 16 mg/dL (9-23)
[2025-04-07 21:53] LABS: TROPONIN I HIGH SENSITIVITY < 4 ng/L (3.0-34)
[2025-04-07 21:54] LABS: ASPARTATE AMINOTRANSFERASE 22 IU/L (<34); BILIRUBIN DIRECT < 0.1 mg/dL (<=3.0)
[2025-04-07 21:55] LABS: BILIRUBIN TOTAL 0.3 mg/dL (0.1-1.0); PROTEIN TOTAL 7.2 g/dL (6.0-8.3)
== END 2025-04-07 22:53 | disposition home or self-care (01) ==
LOC: ER 18:45
DX: R07.89 Other chest pain (principal); R10.30 Lower abdominal pain, unspecified; R06.02 Shortness of breath; F10.90 Alcohol use, unspecified, uncomplicated; F14.90 Cocaine use, unspecified, uncomplicated; I10 Essential (primary) hypertension; Z59.00 Homelessness unspecified; Z87.19 Personal history of other diseases of the digestive system; Z88.5 Allergy status to narcotic agent; Y90.9 Presence of alcohol in blood, level not specified
CPT/HCPCS: 99284; 80053; 81003; 83690; 85025; 84484; 36415; 93005; 96372; J1885; 80076

== ENCOUNTER 2025-04-11 14:23 | Emergency (ER) | payer MEDICAID ==
[~2025-04-11] VITALS: Ht 170.2 cm; Wt 88.0 kg
[2025-04-11 14:25] VITALS: O2SAT 98
[2025-04-11 14:30] VITALS: BP 134/74; PULSE 76; RESP 16; TEMP 36.9; O2SAT 98
[2025-04-11 16:47] LABS: BASOPHILS % 0.5 % (0.0-2.0); EOSINOPHILS % 3.6 % (0.0-5.0); HEMATOCRIT. 34.7 % (36.0-48.0); HEMOGLOBIN. 10.9 g/dL (12.0-16.0); LYMPHOCYTES % 53.6 % (20.0-50.0); MEAN PLATELET VOLUME 8.8 fl (7.4-10.4); MONOCYTES % 10.6 % (2.0-8.0); NEUTROPHILS % 31.7 % (40.0-76.0); PLATELET 160 x1000/uL (130-400); RED BLOOD CELL COUNT 4.13 mill/uL (4.2-5.4); RED CELL DISTRIBUTION WIDTH 16.0 % (11.6-14.6)
[2025-04-11 17:07] LABS: CREATININE 0.6 mg/dL (0.6-1.0); TROPONIN I HIGH SENSITIVITY < 4 ng/L (3.0-34); UREA NITROGEN BLOOD 14 mg/dL (9-23)
[2025-04-11 17:08] LABS: HCG SCREEN NEGATIVE
[2025-04-11 17:09] LABS: ASPARTATE AMINOTRANSFERASE 18 IU/L (<34); BILIRUBIN DIRECT < 0.1 mg/dL (<=3.0); BILIRUBIN TOTAL 0.3 mg/dL (0.1-1.0); PROTEIN TOTAL 6.6 g/dL (6.0-8.3)
[2025-04-11] MEDS ORDERED: IBUPROFEN 800MG TABLET PO ONE (17:30)
== END 2025-04-11 17:52 | disposition home or self-care (01) ==
LOC: ER 14:23
DX: R07.89 Other chest pain (principal); I10 Essential (primary) hypertension; F10.90 Alcohol use, unspecified, uncomplicated; F14.90 Cocaine use, unspecified, uncomplicated; Z87.19 Personal history of other diseases of the digestive system; Z88.5 Allergy status to narcotic agent; Y90.9 Presence of alcohol in blood, level not specified
CPT/HCPCS: 80076; 80048; 84703; 85025; 85379; 84484; 36415; 71045; 93005; 99285; Z7610

== ENCOUNTER 2025-04-13 15:04 | Emergency (ER) | payer MEDICAID ==
[~2025-04-13] VITALS: Ht 167.6 cm; Wt 91.0 kg
[2025-04-13 15:08] VITALS: O2SAT 99
[2025-04-13 15:12] VITALS: BP 127/87; PULSE 82; RESP 18; TEMP 36.8; O2SAT 99
[2025-04-13 18:38] LABS: BASOPHILS % 0.8 % (0.0-2.0); EOSINOPHILS % 2.4 % (0.0-5.0); HEMATOCRIT. 38.1 % (36.0-48.0); HEMOGLOBIN. 11.8 g/dL (12.0-16.0); LYMPHOCYTES % 51.8 % (20.0-50.0); MEAN PLATELET VOLUME 8.8 fl (7.4-10.4); MONOCYTES % 9.0 % (2.0-8.0); NEUTROPHILS % 36.0 % (40.0-76.0); PLATELET 174 x1000/uL (130-400); RED BLOOD CELL COUNT 4.52 mill/uL (4.2-5.4); RED CELL DISTRIBUTION WIDTH 16.0 % (11.6-14.6)
[2025-04-13 18:47] LABS: CREATININE 0.8 mg/dL (0.6-1.0); UREA NITROGEN BLOOD 13 mg/dL (9-23)
[2025-04-13 18:48] LABS: TROPONIN I HIGH SENSITIVITY < 4 ng/L (3.0-34)
[2025-04-13 18:49] LABS: ASPARTATE AMINOTRANSFERASE 25 IU/L (<34)
[2025-04-13 18:50] LABS: BILIRUBIN TOTAL 0.4 mg/dL (0.1-1.0); PROTEIN TOTAL 7.4 g/dL (6.0-8.3)
[2025-04-13 19:06] LABS: HCG SCREEN NEGATIVE
[2025-04-13] MEDS ORDERED: ACETAMINOPHEN 500MG TABLET PO ONE (19:15)
[2025-04-13 21:09] LABS: CLARITY URINE CLEAR (CLEAR); COLOR URINE YELLOW (YELLOW); PH URINE 5.5 (4.5-8.0); PROTEIN URINE NEGATIVE (NEGATIVE); SPECIFIC GRAVITY URINE 1.027 (1.005-1.030)
[2025-04-13 21:10] LABS: GLUCOSE URINE NEGATIVE (NEGATIVE); KETONES URINE NEGATIVE (NEGATIVE); LEUKOCYTE ESTERASE URINE 1+ (NEGATIVE); NITRITE URINE NEGATIVE (NEGATIVE); OCCULT BLOOD URINE NEGATIVE (NEGATIVE); UROBILINOGEN URINE 1.0 E.U./dL (0.2-1.0)
[2025-04-13 21:22] LABS: BACTERIA URINE 2+; RBC URINE 0-2 /hpf (0-2); SQUAMOUS EPITHELIAL CELL URINE FEW /lpf (RARE/1+)
[2025-04-13] MEDS ORDERED: SULF1TAB48 MT (21:29)
== END 2025-04-13 22:20 | disposition home or self-care (01) ==
LOC: ER 15:23
DX: R82.71 Bacteriuria (principal); R07.89 Other chest pain; I10 Essential (primary) hypertension; Z59.00 Homelessness unspecified; Z88.5 Allergy status to narcotic agent; Z87.19 Personal history of other diseases of the digestive system
CPT/HCPCS: 36415; 71045; 80053; 81003; 84484; 84703; 85025; 85379; 93005; 99285

== ENCOUNTER 2025-04-15 15:02 | Emergency (ER) | payer MEDICAID ==
[~2025-04-15] VITALS: Ht 167.6 cm; Wt 91.0 kg
[~2025-04-15 15:02] MED LIST changes: +SULF1TAB48 MT
[2025-04-15 15:12] VITALS: O2SAT 99
[2025-04-15 15:26] VITALS: BP 139/65; PULSE 97; RESP 18; TEMP 36.7; O2SAT 100
[2025-04-15 16:49] VITALS: TEMP 98.1
[2025-04-15] MEDS: ACETAMINOPHEN 325MG TABLET PO ONE (16:49)
[2025-04-15] MEDS: FAMOTIDINE 20MG TABLET PO ONE (16:49)
[2025-04-15 18:44] LABS: BASOPHILS % 0.5 % (0.0-2.0); EOSINOPHILS % 2.9 % (0.0-5.0); HEMATOCRIT. 35.7 % (36.0-48.0); HEMOGLOBIN. 11.4 g/dL (12.0-16.0); LYMPHOCYTES % 30.0 % (20.0-50.0); MEAN PLATELET VOLUME 9.0 fl (7.4-10.4); MONOCYTES % 9.6 % (2.0-8.0); NEUTROPHILS % 57.0 % (40.0-76.0); PLATELET 167 x1000/uL (130-400); RED BLOOD CELL COUNT 4.30 mill/uL (4.2-5.4); RED CELL DISTRIBUTION WIDTH 15.7 % (11.6-14.6)
[2025-04-15 18:48] LABS: HCG SCREEN NEGATIVE
[2025-04-15 18:50] LABS: CREATININE 0.8 mg/dL (0.6-1.0); TROPONIN I HIGH SENSITIVITY < 4 ng/L (3.0-34); UREA NITROGEN BLOOD 17 mg/dL (9-23)
[2025-04-15 18:51] LABS: ASPARTATE AMINOTRANSFERASE 28 IU/L (<34)
[2025-04-15 18:51] LABS: COLOR URINE YELLOW (YELLOW); GLUCOSE URINE NEGATIVE (NEGATIVE); KETONES URINE NEGATIVE (NEGATIVE); OCCULT BLOOD URINE NEGATIVE (NEGATIVE); PH URINE 7.0 (4.5-8.0); PROTEIN URINE NEGATIVE (NEGATIVE); SPECIFIC GRAVITY URINE 1.025 (1.005-1.030)
[2025-04-15 18:52] LABS: BILIRUBIN DIRECT < 0.1 mg/dL (<=3.0); BILIRUBIN TOTAL 0.3 mg/dL (0.1-1.0); PROTEIN TOTAL 7.4 g/dL (6.0-8.3)
[2025-04-15 18:52] LABS: LEUKOCYTE ESTERASE URINE TRACE (NEGATIVE); NITRITE URINE NEGATIVE (NEGATIVE); UROBILINOGEN URINE 1.0 E.U./dL (0.2-1.0)
[2025-04-15 19:19] LABS: CLARITY URINE HAZY (CLEAR)
[2025-04-15 19:20] LABS: BACTERIA URINE TRACE; RBC URINE NONE SEEN /hpf (0-2); SQUAMOUS EPITHELIAL CELL URINE 1+ /lpf (RARE/1+); WBC URINE 0-2 /hpf (0-2)
[2025-04-15] MEDS ORDERED: IBUP-2028 MT (20:09)
[2025-04-15] MEDS ORDERED: GUAI-450 MT (20:09)
== END 2025-04-15 20:24 | disposition home or self-care (01) ==
LOC: ER 15:02
DX: J06.9 Acute upper respiratory infection, unspecified (principal); R07.89 Other chest pain; B97.89 Other viral agents as the cause of diseases classified elsewhere; R06.02 Shortness of breath; R19.7 Diarrhea, unspecified; K21.9 Gastro-esophageal reflux disease without esophagitis; I10 Essential (primary) hypertension; Z88.5 Allergy status to narcotic agent
CPT/HCPCS: 36415; 71045; 80048; 80076; 81003; 83880; 84484; 84703; 85025; 93005; 99285

== ENCOUNTER 2025-04-26 08:37 | Emergency (ER) | payer MEDICAID ==
[~2025-04-26] VITALS: Ht 167.6 cm; Wt 80.0 kg
[~2025-04-26 08:37] MED LIST changes: +GUAI-450 MT; +IBUP-2028 MT
[2025-04-26 08:44] VITALS: TEMP 36.7; O2SAT 100
[2025-04-26] MEDS: FAMOTIDINE 20MG TABLET PO ONE (09:17)
[2025-04-26] MEDS: MAGNESIUM HYDROXIDE 400MG/5ML 30ML UDC PO ONE (09:17)
[2025-04-26 09:18] VITALS: TEMP 98
[2025-04-26] MEDS: ACETAMINOPHEN 500MG TABLET PO ONE (09:18)
[2025-04-26 09:37] LABS: BASOPHILS % 0.7 % (0.0-2.0); EOSINOPHILS % 2.3 % (0.0-5.0); HEMATOCRIT. 37.1 % (36.0-48.0); HEMOGLOBIN. 11.7 g/dL (12.0-16.0); LYMPHOCYTES % 46.2 % (20.0-50.0); MEAN PLATELET VOLUME 8.8 fl (7.4-10.4); MONOCYTES % 8.7 % (2.0-8.0); NEUTROPHILS % 42.1 % (40.0-76.0); PLATELET 193 x1000/uL (130-400); RED BLOOD CELL COUNT 4.42 mill/uL (4.2-5.4); RED CELL DISTRIBUTION WIDTH 15.2 % (11.6-14.6)
[2025-04-26 09:40] LABS: CREATININE 0.6 mg/dL (0.6-1.0); UREA NITROGEN BLOOD 11 mg/dL (9-23)
[2025-04-26 09:42] LABS: ASPARTATE AMINOTRANSFERASE 22 IU/L (<34); BILIRUBIN DIRECT < 0.1 mg/dL (<=3.0); TROPONIN I HIGH SENSITIVITY < 4 ng/L (3.0-34)
[2025-04-26 09:43] LABS: BILIRUBIN TOTAL 0.4 mg/dL (0.1-1.0); HCG SCREEN NEGATIVE; PROTEIN TOTAL 7.0 g/dL (6.0-8.3)
[2025-04-26 10:14] VITALS: BP 141/81; PULSE 69; RESP 14; O2SAT 100
== END 2025-04-26 10:18 | disposition home or self-care (01) ==
LOC: ER 08:37
DX: R10.31 Right lower quadrant pain (principal); R07.89 Other chest pain; R11.2 Nausea with vomiting, unspecified; I10 Essential (primary) hypertension; F10.90 Alcohol use, unspecified, uncomplicated; F14.90 Cocaine use, unspecified, uncomplicated; Z87.19 Personal history of other diseases of the digestive system; Z88.5 Allergy status to narcotic agent; Y90.9 Presence of alcohol in blood, level not specified
CPT/HCPCS: 36415; 71045; 80048; 80076; 84484; 84703; 85025; 93005; 99285

== ENCOUNTER 2025-05-01 18:02 | Emergency (ER) | payer MEDICAID ==
[~2025-05-01] VITALS: Ht 170.2 cm; Wt 91.0 kg
[2025-05-01 18:13] VITALS: O2SAT 99
[2025-05-01 19:07] LABS: CLARITY URINE TURBID (CLEAR); COLOR URINE YELLOW (YELLOW); GLUCOSE URINE NEGATIVE (NEGATIVE); KETONES URINE NEGATIVE (NEGATIVE); LEUKOCYTE ESTERASE URINE TRACE (NEGATIVE); NITRITE URINE NEGATIVE (NEGATIVE); OCCULT BLOOD URINE NEGATIVE (NEGATIVE); PH URINE 7.0 (4.5-8.0); PROTEIN URINE NEGATIVE (NEGATIVE); SPECIFIC GRAVITY URINE 1.025 (1.005-1.030); UROBILINOGEN URINE 0.2 E.U./dL (0.2-1.0)
[2025-05-01 19:18] LABS: BASOPHILS % 1.0 % (0.0-2.0); EOSINOPHILS % 2.8 % (0.0-5.0); HEMATOCRIT. 34.6 % (36.0-48.0); HEMOGLOBIN. 10.8 g/dL (12.0-16.0); LYMPHOCYTES % 37.9 % (20.0-50.0); MEAN PLATELET VOLUME 8.5 fl (7.4-10.4); MONOCYTES % 7.8 % (2.0-8.0); NEUTROPHILS % 50.5 % (40.0-76.0); PLATELET 189 x1000/uL (130-400); RED BLOOD CELL COUNT 4.12 mill/uL (4.2-5.4); RED CELL DISTRIBUTION WIDTH 15.4 % (11.6-14.6)
[2025-05-01 19:32] LABS: HCG SCREEN NEGATIVE
[2025-05-01 19:49] LABS: SQUAMOUS EPITHELIAL CELL URINE 2+ /lpf (RARE/1+)
[2025-05-01 19:51] LABS: BACTERIA URINE 3+
[2025-05-01 19:56] LABS: UREA NITROGEN BLOOD 12 mg/dL (9-23)
[2025-05-01 19:58] LABS: ASPARTATE AMINOTRANSFERASE 27 IU/L (<34); BILIRUBIN DIRECT 0.1 mg/dL (<=3.0); BILIRUBIN TOTAL 0.4 mg/dL (0.1-1.0); PROTEIN TOTAL 6.9 g/dL (6.0-8.3)
[2025-05-01 20:02] LABS: CREATININE 1.0 mg/dL (0.6-1.0)
[2025-05-01 20:11] LABS: TROPONIN I HIGH SENSITIVITY < 4 ng/L (3.0-34)
[2025-05-01] MEDS ORDERED: CEPH500C2 MT (20:23)
[2025-05-01 20:55] VITALS: TEMP 37.1; O2SAT 98
[2025-05-01 20:58] VITALS: BP 133/69; PULSE 83; RESP 16
[2025-05-01] MEDS: SIMETHICONE 80MG TABLET CHEW PO PRN (20:58)
[2025-05-01] MEDS: KETOROLAC 30MG/ML VIAL IM ONE (20:58)
[2025-05-01] MEDS: PANTOPRAZOLE 40MG DR TABLET PO ONE (20:58)
== END 2025-05-01 21:00 | disposition home or self-care (01) ==
LOC: ER 18:02
DX: R07.89 Other chest pain (principal); R10.9 Unspecified abdominal pain; I10 Essential (primary) hypertension; Z88.5 Allergy status to narcotic agent
CPT/HCPCS: 99285; 71045; 80076; 80048; 81003; 84703; 83690; 85025; 84484; 36415; 93005; 96372; J1885

== ENCOUNTER 2025-05-08 18:58 | Emergency (ER) | payer MEDICAID ==
[~2025-05-08 18:58] MED LIST changes: +CEPH500C2 MT
[2025-05-08 20:34] LABS: BASOPHILS % 0.7 % (0.0-2.0); EOSINOPHILS % 3.1 % (0.0-5.0); HEMATOCRIT. 35.3 % (36.0-48.0); HEMOGLOBIN. 11.0 g/dL (12.0-16.0); LYMPHOCYTES % 51.2 % (20.0-50.0); MEAN PLATELET VOLUME 8.7 fl (7.4-10.4); MONOCYTES % 12.0 % (2.0-8.0); NEUTROPHILS % 33.0 % (40.0-76.0); PLATELET 170 x1000/uL (130-400); RED BLOOD CELL COUNT 4.20 mill/uL (4.2-5.4); RED CELL DISTRIBUTION WIDTH 15.5 % (11.6-14.6)
[2025-05-08 20:51] LABS: CREATININE 1.0 mg/dL (0.6-1.0); UREA NITROGEN BLOOD 15 mg/dL (9-23)
[2025-05-08 20:52] LABS: PROTEIN TOTAL 7.1 g/dL (6.0-8.3); TROPONIN I HIGH SENSITIVITY < 4 ng/L (3.0-34)
[2025-05-08 20:53] LABS: ASPARTATE AMINOTRANSFERASE 25 IU/L (<34); BILIRUBIN DIRECT < 0.1 mg/dL (<=3.0); BILIRUBIN TOTAL 0.2 mg/dL (0.1-1.0)
[2025-05-08 22:36] LABS: HCG SCREEN NEGATIVE
[2025-05-08] MEDS: ACETAMINOPHEN 500MG TABLET PO ONE (22:38)
[2025-05-08 23:28] VITALS: BP 132/92; PULSE 77; RESP 18; O2SAT 96
== END 2025-05-08 23:31 | disposition home or self-care (01) ==
LOC: ER 18:58
DX: R10.13 Epigastric pain (principal); I10 Essential (primary) hypertension; Z88.5 Allergy status to narcotic agent; Z79.899 Other long term (current) drug therapy; Z98.890 Other specified postprocedural states
CPT/HCPCS: 36415; 80048; 80076; 84484; 84703; 85025; 99283

== ENCOUNTER 2025-05-24 20:36 | Emergency (ER) | payer MEDICAID ==
[~2025-05-24] VITALS: Ht 160 cm; Wt 90.9 kg
[2025-05-24 20:45] VITALS: BP 139/95; TEMP 36.7; O2SAT 98
[2025-05-24 20:46] VITALS: PULSE 80; RESP 18; O2SAT 99
[2025-05-24 21:54] LABS: PLATELET 175 x1000/uL (130-400); RED BLOOD CELL COUNT 4.17 mill/uL (4.2-5.4); RED CELL DISTRIBUTION WIDTH 14.6 % (11.6-14.6)
[2025-05-24 22:09] LABS: HCG SCREEN NEGATIVE; PROTEIN TOTAL 6.9 g/dL (6.0-8.3); TROPONIN I HIGH SENSITIVITY < 4 ng/L (3.0-34)
[2025-05-24 22:10] LABS: CREATININE 1.0 mg/dL (0.6-1.0); UREA NITROGEN BLOOD 24 mg/dL (9-23)
[2025-05-24 22:11] LABS: ASPARTATE AMINOTRANSFERASE 27 IU/L (<34); BILIRUBIN DIRECT < 0.1 mg/dL (<=3.0); BILIRUBIN TOTAL 0.2 mg/dL (0.1-1.0)
[2025-05-24] MEDS: KETOROLAC 15MG/ML VIAL IM ONE (22:17)
[2025-05-24] MEDS ORDERED: NAPR-1176 MT (22:33)
== END 2025-05-24 22:53 | disposition home or self-care (01) ==
LOC: ER 20:36
DX: R07.89 Other chest pain (principal); R10.84 Generalized abdominal pain; F14.90 Cocaine use, unspecified, uncomplicated; I10 Essential (primary) hypertension; Z98.890 Other specified postprocedural states; Z79.1 Long term (current) use of non-steroidal anti-inflammatories (NSAID); Z88.5 Allergy status to narcotic agent
CPT/HCPCS: 80076; 80048; 84703; 83690; 85027; 84484; 36415; 71045; 93005; 96372; 99285; J1885; Z7610

== ENCOUNTER 2025-05-27 08:48 | Emergency (ER) | payer MEDICAID ==
[~2025-05-27] VITALS: Ht 162.6 cm; Wt 91.0 kg
[~2025-05-27 08:48] MED LIST changes: +NAPR-1176 MT
[2025-05-27 09:15] VITALS: BP 126/81; TEMP 37.1; O2SAT 99
[2025-05-27 09:18] VITALS: PULSE 89; RESP 18; O2SAT 100
[2025-05-27 09:54] LABS: BASOPHILS % 0.5 % (0.0-2.0); EOSINOPHILS % 2.6 % (0.0-5.0); HEMATOCRIT. 36.7 % (36.0-48.0); HEMOGLOBIN. 11.4 g/dL (12.0-16.0); LYMPHOCYTES % 47.5 % (20.0-50.0); MEAN PLATELET VOLUME 8.8 fl (7.4-10.4); MONOCYTES % 9.8 % (2.0-8.0); NEUTROPHILS % 39.6 % (40.0-76.0); PLATELET 175 x1000/uL (130-400); RED BLOOD CELL COUNT 4.34 mill/uL (4.2-5.4); RED CELL DISTRIBUTION WIDTH 14.8 % (11.6-14.6)
[2025-05-27 11:06] LABS: CREATININE 0.7 mg/dL (0.6-1.0)
[2025-05-27 11:07] LABS: UREA NITROGEN BLOOD 11 mg/dL (9-23)
[2025-05-27 11:08] LABS: ASPARTATE AMINOTRANSFERASE 26 IU/L (<34); PROTEIN TOTAL 6.9 g/dL (6.0-8.3)
[2025-05-27 11:09] LABS: BILIRUBIN DIRECT 0.1 mg/dL (<=3.0); BILIRUBIN TOTAL 0.4 mg/dL (0.1-1.0)
[2025-05-28] MEDS ORDERED: KETO15CR2 TP (21:07)
[2025-05-28] MEDS ORDERED: CEPH500T MT (22:02)
[2025-06-04] MEDS ORDERED: HYDR25TA78 PO (13:23)
[2025-06-04] MEDS ORDERED: AMLO5TAB88 PO (13:23)
[2025-06-04] MEDS ORDERED: THIA100T72 PO (13:23)
== END 2025-05-27 11:46 | disposition home or self-care (01) ==
LOC: ER 08:48
DX: R10.9 Unspecified abdominal pain (principal); I10 Essential (primary) hypertension; F14.90 Cocaine use, unspecified, uncomplicated; Z98.890 Other specified postprocedural states; Z88.5 Allergy status to narcotic agent
CPT/HCPCS: 80076; 80048; 83690; 85025; 36415; 93005; 99284; Z7610; 99283

== ENCOUNTER 2025-05-28 19:04 | Emergency (ER) | payer MEDICAID ==
[~2025-05-28] VITALS: Ht 172.7 cm; Wt 92.0 kg
[2025-05-28 19:19] VITALS: O2SAT 99
[2025-05-28 20:20] LABS: BASOPHILS % 0.3 % (0.0-2.0); EOSINOPHILS % 1.5 % (0.0-5.0); HEMATOCRIT. 32.8 % (36.0-48.0); HEMOGLOBIN. 10.5 g/dL (12.0-16.0); LYMPHOCYTES % 43.7 % (20.0-50.0); MEAN PLATELET VOLUME 8.9 fl (7.4-10.4); MONOCYTES % 10.1 % (2.0-8.0); NEUTROPHILS % 44.4 % (40.0-76.0); PLATELET 167 x1000/uL (130-400); RED BLOOD CELL COUNT 3.90 mill/uL (4.2-5.4); RED CELL DISTRIBUTION WIDTH 14.6 % (11.6-14.6)
[2025-05-28] MEDS: ACETAMINOPHEN 325MG TABLET PO ONE (20:21)
[2025-05-28 20:32] LABS: CREATININE 0.7 mg/dL (0.6-1.0)
[2025-05-28 20:33] LABS: UREA NITROGEN BLOOD 16 mg/dL (9-23)
[2025-05-28 20:34] LABS: TROPONIN I HIGH SENSITIVITY < 4 ng/L (3.0-34)
[2025-05-28] MEDS ORDERED: KETO15CR2 TP (21:07)
[2025-05-28 21:22] LABS: CLARITY URINE CLOUDY (CLEAR); COLOR URINE YELLOW (YELLOW); GLUCOSE URINE NEGATIVE (NEGATIVE); KETONES URINE NEGATIVE (NEGATIVE); LEUKOCYTE ESTERASE URINE 1+ (NEGATIVE); NITRITE URINE NEGATIVE (NEGATIVE); OCCULT BLOOD URINE NEGATIVE (NEGATIVE); PH URINE 5.5 (4.5-8.0); PROTEIN URINE NEGATIVE (NEGATIVE); SPECIFIC GRAVITY URINE 1.030 (1.005-1.030); UROBILINOGEN URINE 0.2 E.U./dL (0.2-1.0)
[2025-05-28 21:51] LABS: BACTERIA URINE TRACE; SQUAMOUS EPITHELIAL CELL URINE FEW /lpf (RARE/1+)
[2025-05-28] MEDS ORDERED: CEPH500T MT (22:02)
[2025-05-28 22:20] VITALS: BP 124/67; PULSE 90; RESP 16; TEMP 36.9; O2SAT 97
== END 2025-05-28 22:27 | disposition home or self-care (01) ==
LOC: ER 19:04
DX: R07.89 Other chest pain (principal); N39.0 Urinary tract infection, site not specified; B37.2 Candidiasis of skin and nail; I10 Essential (primary) hypertension; Z79.1 Long term (current) use of non-steroidal anti-inflammatories (NSAID); Z87.19 Personal history of other diseases of the digestive system; Z88.5 Allergy status to narcotic agent
CPT/HCPCS: 80048; 81003; 83880; 85025; 84484; 36415; 71045; 93005; 99285; Z7610 ×2

== ENCOUNTER 2025-05-31 22:02 | Emergency (ER) | payer MEDICAID ==
[~2025-05-31] VITALS: Ht 160 cm; Wt 91.0 kg
[~2025-05-31 22:02] MED LIST changes: +CEPH500T MT; +KETO15CR2 TP
[2025-05-31 22:28] VITALS: BP 161/89; TEMP 36.4; O2SAT 99
[2025-05-31 22:30] VITALS: PULSE 90; RESP 18; O2SAT 97
[2025-06-04] MEDS ORDERED: HYDR25TA78 PO (13:23)
[2025-06-04] MEDS ORDERED: THIA100T72 PO (13:23)
[2025-06-04] MEDS ORDERED: AMLO5TAB88 PO (13:23)
== END 2025-06-01 01:15 | disposition left against medical advice (07) ==
LOC: ER 22:12
DX: R07.9 Chest pain, unspecified (principal); Z53.21 Procedure and treatment not carried out due to patient leaving prior to being seen by health care provider
CPT/HCPCS: 93005; 99281